=== PATIENT | male | born 1970 | race African-American/Black ===

== ENCOUNTER 2017-05-24 20:22 | Emergency (ER) | payer SELFPAY ==
[2017-05-24] MEDS ORDERED: HYDROCODONE/APAP 7.5/325 MG TAB ONE (21:27)
[2017-05-24] MEDS ORDERED: KETOROLAC 30 MG/ML INJ ONE (21:27)
--- NOTE | 2017-05-24 21:30 | EDPHYS ---
Physician Documentation [facility] Name: Cele Lewis Age: 46 yrs Sex: Male : 1970 Arrival Date: 05/24/2017 Time: 20:26 Bed 25 Private MD: ED Physician Fer Ellison HPI: 05/24 20:32 This 46 yrs old Black Male presents to ER via Ambulatory with complaints of Toothache, rh1 Headache. 20:32 The patient presents with broken tooth/teeth, pain. The problem is located in the upper rh1 right third molar and upper left third molar. Onset: The symptoms/episode began/occurred 2 day(s) ago. Duration: The symptoms are chronic. Modifying factors: The symptoms are alleviated by nothing, the symptoms are aggravated by nothing. Associated signs and symptoms: Pertinent positives: pain, Pertinent negatives: chills, fever, inability to eat, redness in area, swelling, vomiting. Severity of symptoms: At their worst the symptoms were moderate, in the emergency department the symptoms are unchanged. The patient has experienced similar episodes in the past. The patient has not recently seen a physician. Pt. reports pain at bilateral upper molars, increased for the past 2 days. Reports resulting in RENE now. He was last seen here 01/2017 for similar symptoms. Reports he has not followed up with dentist, due to "a lot of paperwork." He has a hx of HTN, took medication just prior to coming to ER.. Historical: - Allergies: 20:29 No Known Allergies; lp1 - Home Meds: 20:29 lisinopril 20 mg Oral tab 1 tab once daily [Active]; lp1 - PMHx: 20:29 Hypertension; lp1 - PSHx: 20:29 None; lp1 - Immunization history:: Adult Immunizations up to date. - Social history:: Smoking status: Patient/guardian denies using tobacco. ROS: 20:32 Constitutional: Negative for fever, chills rh1 20:32 Eyes: Negative for acute changes, blurry vision, vision loss, visual disturbance. 20:32 ENT: Positive for dental pain, Negative for difficulty swallowing, difficulty handling secretions, hoarseness. 20:32 Neck: Negative for pain with movement, pain at rest, swelling. 20:32 Cardiovascular: Negative for chest pain. 20:32 Respiratory: Negative for shortness of breath, wheezing. 20:32 Abdomen/GI: Negative for nausea and vomiting. 20:32 MS/extremity: Negative for decreased range of motion, pain, paresthesias. 20:32 Skin: Negative for diaphoresis, erythema, swelling. 20:32 Neuro: Positive for headache, Negative for altered mental status, dizziness. Exam: 20:32 Constitutional: This is a well developed, well nourished patient who is awake, alert, rh1 and in no acute distress. Head/Face: Normocephalic, atraumatic. 20:32 Neck: Trachea midline, and no cervical lymphadenopathy. Supple, full range of motion without nuchal rigidity. No Meningismus. Chest/axilla: Normal chest wall appearance and motion. Nontender with no deformity. No lesions are appreciated. Cardiovascular: Regular rate and rhythm with a normal S1 and S2. No gallops, murmurs, or rubs. No JVD. No pulse deficits. Respiratory: Lungs have equal breath sounds bilaterally, clear to auscultation. No rales, rhonchi or wheezes noted. No increased work of breathing. Abdomen/GI: Soft, non-tender, with normal bowel sounds. No distension. No guarding or rebound. No evidence of tenderness throughout. Back: No spinal tenderness. No costovertebral tenderness. Full range of motion. Skin: Warm, dry with normal turgor. Normal color with no rashes, no lesions, and no evidence of cellulitis. 20:32 Eyes: Pupils: no acute changes, normal size, normal reaction to light, equal, right pupil is approximately 3 mm(s), left pupil is approximately 3 mm(s), Extraocular movements: intact throughout, Nystagmus: is not appreciated. 20:32 ENT: External ear(s): are unremarkable, no pain with movement, Ear canal(s): are normal, clear, no cerumen impaction, no erythema, no foreign body, no purulent discharge, no swelling, TM's: are normal, no evidence of bulging, no dullness, no erythema, no fluid levels, no hemotympanum, no rupture, normal bony landmarks, Nose: is normal, no drainage, no edema, Mouth: is normal, no lip abnormalities, no mucosal abnormalities, teeth with tobacco staining, mucosa with hypopigmentation, Posterior pharynx: is normal, airway is patent, no erythema, no exudate, no peritonsilar mass, no pooling of secretions, no swelling, normal tonsil apperance, normal sized tonsils, normal uvula appearance, normal uvula size, Dental exam: abscess, is not appreciated, cellulitis, is not appreciated, dental caries, that is moderate, specifically in the upper right third molar (#1) and upper left third molar (#16), tooth erosion, gum swelling, not appreciated, pain, that is moderate, specifically in the upper right third molar (#1) and upper left third molar (#16). 20:32 Neuro: Orientation: is normal, to person, place \\T\\ time. Mentation: is normal, lucid, able to follow commands, Motor: is normal, moves all fours, strength is 5/5 in all extremities, Sensation: is normal, numbness, is not appreciated, tingling, is not appreciated, Gait: is steady, at a normal pace, without difficulty. Vital Signs: 20:30 BP 185 / 115; Pulse 77; Resp 16; Temp 98.4(TE); Pulse Ox 99% on R/A; Weight 106.59 kg; lp1 Height 6 ft. 0 in. (182.88 cm); Pain 9/10; 21:00 BP 185 / 105; Pulse 63; Resp 16; Pulse Ox 99% on R/A; lk1 21:35 BP 184 / 111; Pulse 56; Resp 15; Pulse Ox 100% on R/A; Pain 6/10; lk1 20:30 Body Mass Index 31.87 (106.59 kg, 182.88 cm) lp1 MDM: 20:32 Patient medically screened. [facility] 21:30 Data reviewed: vital signs, nurses notes, and as a result, I will discharge patient. [facility] Data interpreted: Pulse oximetry: on room air is 99 %. Interpretation: normal. Counseling: I had a detailed discussion with the patient and/or guardian regarding: the historical points, exam findings, and any diagnostic results supporting the discharge/admit diagnosis, the need for outpatient follow up, a dentist, a family practitioner, to return to the emergency department if symptoms worsen or persist or if there are any questions or concerns that arise at home. Administered Medications: 21:08 Drug: [place] (7.5 mg-325 mg) 1 tabs Route: PO; lk1 21:35 Follow up: Response: No adverse reaction; Marked relief of symptoms; Pain is decreased lk1 21:09 Drug: Ketorolac 60 mg Route: IM; Site: left gluteus; lk1 21:35 Follow up: Response: No adverse reaction; Marked relief of symptoms; Pain is decreased lk1 Disposition: 05/24/17 21:30 Discharged to Home. Impression: Pulpitis, Hypertensive heart disease. - Condition is Stable. - Discharge Instructions: Dental Pain, Hypertension, Diet and Dental Disease. - Prescriptions for Naprosyn 500 mg Oral Tablet - take 1 tablet by ORAL route 2 times per day take with food; 30 tablet. - Medication Reconciliation Form, Thank You Letter, Antibiotic Education, Prescription Opioid Use form. - Follow up: Private Physician; When: 1 - 2 days; Reason: Recheck today's complaints, Continuance of care, Re-evaluation by your physician. Follow up: Cesar Medina; When: 1 - 2 days; Reason: Further diagnostic work-up, Recheck today's complaints, Continuance of care. Follow up: Emergency Department; When: As needed; Reason: Fever > 102 F, If symptoms return, Trouble breathing, Worsening of condition. - Problem is new. - Symptoms have improved. Addendum: 05/28/2017 07:06 Co-signature as Attending Physician, Fer Ellison MD I agree with the assessment and w a plan of care. Signatures: Vane Sarmiento, RN RN lp1 Kellen Perdomo NP TAXI SERVICER 1 Irina Franco RN RN lk1 Fer Ellison MD MD vt Corrections: (The following items were deleted from the chart) 05/24 20:48 20:32 Pt. reports pain at bilateral upper molars, increased for the past 2 days. rh1 Reports resulting in RENE now. He was last seen here 01/2017 for similar symptoms. Reports he has not followed up with dentist, due to "a lot of paperwork." . rh1
--- NOTE | 2017-05-24 21:30 | ER ---
Nurse's Notes [facility] Name: Cele Lewis Age: 46 yrs Sex: Male : 1970 Arrival Date: 05/24/2017 Time: 20:26 Bed 25 Private MD: Diagnosis: Pulpitis;Hypertensive heart disease Presentation: 05/24 20:27 Presenting complaint: Patient states: Pain to upper right and left of mouth, radiating, lp1 causing headache; States a bad tooth on each side. Transition of care: patient was not received from another setting of care. Onset of symptoms was May 24, 2017. Care prior to arrival: None. 20:27 Method Of Arrival: Ambulatory lp1 20:27 Acuity: RIO 4 lp1 Triage Assessment: 21:48 General: Behavior is calm, cooperative, appropriate for age. lk1 Historical: - Allergies: 20:29 No Known Allergies; lp1 - Home Meds: 20:29 lisinopril 20 mg Oral tab 1 tab once daily [Active]; lp1 - PMHx: 20:29 Hypertension; lp1 - PSHx: 20:29 None; lp1 - Immunization history:: Adult Immunizations up to date. - Social history:: Smoking status: Patient/guardian denies using tobacco. Screenin:29 Abuse screen: Denies threats or abuse. Denies injuries from another. Nutritional lp1 screening: No deficits noted. Tuberculosis screening: No symptoms or risk factors identified. Fall Risk None identified. Assessment: 21:05 General: Appears in no apparent distress. Pain: Complains of pain in mouth Pain lk1 currently is 9 out of 10 on a pain scale. Neuro: Level of Consciousness is awake, alert, obeys commands, Oriented to person, place, time, situation. Cardiovascular: Denies chest pain, lightheadedness, nausea, palpitations, shortness of breath, Capillary refill is brisk Patient's skin is warm and dry. Respiratory: Airway is patent Respiratory effort is even, unlabored, Respiratory pattern is regular, symmetrical. GI: Abdomen is non-distended. EENT: Reports pain in right jaw and left jaw. Musculoskeletal: Swelling absent. Vital Signs: 20:30 BP 185 / 115; Pulse 77; Resp 16; Temp 98.4(TE); Pulse Ox 99% on R/A; Weight 106.59 kg; lp1 Height 6 ft. 0 in. (182.88 cm); Pain 9/10; 21:00 BP 185 / 105; Pulse 63; Resp 16; Pulse Ox 99% on R/A; lk1 21:35 BP 184 / 111; Pulse 56; Resp 15; Pulse Ox 100% on R/A; Pain 6/10; lk1 20:30 Body Mass Index 31.87 (106.59 kg, 182.88 cm) lp1 ED Course: 20:26 Patient arrived in ED. al2 20:29 Triage completed. lp1 20:29 Arm band placed on left wrist. lp1 20:30 Kellen Perdomo NP is PHCP. rh1 20:30 Fer Ellison MD is Attending Physician. rh1 21:06 Irina Franco, JOLIE is Primary Nurse. lk1 21:22 Patient has correct armband on for positive identification. Bed in low position. Call lk1 light in reach. Adult w/ patient. 21:30 Cesar Medina DDS is Referral Physician. rh1 21:47 No provider procedures requiring assistance completed. Patient did not have IV access lk1 during this emergency room visit. Administered Medications: 21:08 Drug: [place] (7.5 mg-325 mg) 1 tabs Route: PO; lk1 21:35 Follow up: Response: No adverse reaction; Marked relief of symptoms; Pain is decreased lk1 21:09 Drug: Ketorolac 60 mg Route: IM; Site: left gluteus; lk1 21:35 Follow up: Response: No adverse reaction; Marked relief of symptoms; Pain is decreased lk1 Outcome: 21:30 Discharge ordered by MD. rh1 21:47 Discharged to home ambulatory, with significant other. lk1 21:47 Condition: good 21:47 Discharge instructions given to patient, significant other, Instructed on discharge instructions, follow up and referral plans. medication usage, safety practices, Demonstrated understanding of instructions, follow-up care, medications, Prescriptions given X 1. 21:48 Patient left the ED. lk1 Signatures: Vane Sarmiento RN RN 1 Kellen Perdomo, BOTTLE DEALER BOTTLE DEALER 1 Irina Franco, JOLIE RN lk1 Adriana Whatley al2
[2017-05-24 21:52] VITALS: TEMP 98.4
[2017-05-24 21:54] VITALS: BP 184/111; O2SAT 100
== END 2017-05-24 21:48 | disposition home or self-care (01) ==
LOC: ER 20:22
DX: K04.01 Reversible pulpitis (principal); I11.9 Hypertensive heart disease without heart failure; I10 Essential (primary) hypertension
CPT/HCPCS: 96372; 99283

== ENCOUNTER 2018-01-30 21:32 | Emergency (ER) | payer SELFPAY ==
--- NOTE | 2018-01-30 21:51 | EDPHYS ---
Physician Documentation [facility] Name: Cele Lewis Age: 47 yrs Sex: Male : 1970 Arrival Date: 01/30/2018 Time: 21:34 Bed 20 Private MD: ED Physician Hira Jaime HPI: 01/30 21:55 This 47 yrs old Black Male presents to ER via Ambulatory with complaints of Toothache. snw 21:55 The patient presents with broken tooth/teeth, pain, redness. The problem is located in snw the upper left third molar (#16) and upper left second molar (#15) and upper right first molar (#3) and upper right second molar (#2) and upper right third molar (#1). Onset: The symptoms/episode began/occurred gradually, and became persistent. Duration: The symptoms are continuous. Associated signs and symptoms: Pertinent positives: inability to eat, pain. Severity of symptoms: At their worst the symptoms were moderate, severe. It is unknown whether or not the patient has had similar symptoms in the past. It is unknown whether or not the patient has recently seen a physician. Historical: - Allergies: 21:43 No Known Allergies; aj - Home Meds: 21:43 lisinopril 20 mg Oral tab 1 tab once daily [Active]; aj - PMHx: 21:43 Hypertension; aj - PSHx: 21:43 None; aj - Immunization history:: Last tetanus immunization: unknown. - Social history:: Smoking status: Patient uses tobacco products, chewing tobacco. - Ebola Screening: : Patient denies exposure to infectious person Patient denies travel to an Ebola-affected area in the 21 days before illness onset No symptoms or risks identified at this time. ROS: 21:53 Constitutional: Negative for fever, chills, and weight loss, Eyes: Negative for injury, snw pain, redness, and discharge, Neck: Negative for injury, pain, and swelling, Cardiovascular: Negative for chest pain, palpitations, and edema, Respiratory: Negative for shortness of breath, cough, wheezing, and pleuritic chest pain, Abdomen/GI: Negative for abdominal pain, nausea, vomiting, diarrhea, and constipation, Back: Negative for injury and pain, : Negative for injury, bleeding, discharge, and swelling, MS/Extremity: Negative for injury and deformity, Skin: Negative for injury, rash, and discoloration, Neuro: Negative for headache, weakness, numbness, tingling, and seizure, Psych: Negative for depression, anxiety, suicide ideation, homicidal ideation, and hallucinations. 21:53 ENT: Positive for dental pain. Exam: 21:53 Constitutional: This is a well developed, well nourished patient who is awake, alert, snw and in no acute distress. Head/Face: Normocephalic, atraumatic. Eyes: Pupils equal round and reactive to light, extra-ocular motions intact. Lids and lashes normal. Conjunctiva and sclera are non-icteric and not injected. Cornea within normal limits. Periorbital areas with no swelling, redness, or edema. Neck: Trachea midline, no thyromegaly or masses palpated, and no cervical lymphadenopathy. Supple, full range of motion without nuchal rigidity, or vertebral point tenderness. No Meningismus. Chest/axilla: Normal chest wall appearance and motion. Nontender with no deformity. No lesions are appreciated. Cardiovascular: Regular rate and rhythm with a normal S1 and S2. No gallops, murmurs, or rubs. Normal PMI, no JVD. No pulse deficits. Respiratory: Lungs have equal breath sounds bilaterally, clear to auscultation and percussion. No rales, rhonchi or wheezes noted. No increased work of breathing, no retractions or nasal flaring. Abdomen/GI: Soft, non-tender, with normal bowel sounds. No distension or tympany. No guarding or rebound. No evidence of tenderness throughout. Back: No spinal tenderness. No costovertebral tenderness. Full range of motion. Skin: Warm, dry with normal turgor. Normal color with no rashes, no lesions, and no evidence of cellulitis. MS/ Extremity: Pulses equal, no cyanosis. Neurovascular intact. Full, normal range of motion. Neuro: Awake and alert, GCS 15, oriented to person, place, time, and situation. Cranial nerves II-XII grossly intact. Motor strength 5/5 in all extremities. Sensory grossly intact. Cerebellar exam normal. Normal gait. Psych: Awake, alert, with orientation to person, place and time. Behavior, mood, and affect are within normal limits. 21:53 ENT: External ear(s): are unremarkable, Ear canal(s): are normal, TM's: are normal, Nose: is normal, Mouth: is normal, Posterior pharynx: is normal, Dental exam: missing teeth, specifically the upper right third molar (#1), upper right second molar (#2), upper right first molar (#3), upper left second molar (#15) and upper left third molar (#16), Voice: is normal, Breath odor: is normal. Vital Signs: 21:43 BP 184 / 110; Pulse 69; Resp 20; Temp 99.0; Pulse Ox 98% on R/A; Weight 104.33 kg; aj Height 6 ft. 0 in. (182.88 cm); 21:43 Body Mass Index 31.19 (104.33 kg, 182.88 cm) aj MDM: 21:50 Patient medically screened. snw 21:55 Data reviewed: vital signs, nurses notes. Data interpreted: Pulse oximetry: on room air snw is 98 %. Interpretation: normal. Counseling: I had a detailed discussion with the patient and/or guardian regarding: the historical points, exam findings, and any diagnostic results supporting the discharge/admit diagnosis, the presence of at least one elevated blood pressure reading (>120/80) during this emergency department visit, the need for outpatient follow up, to return to the emergency department if symptoms worsen or persist or if there are any questions or concerns that arise at home. Special discussion: I have referred the patient to see his PCP for further evaluation of high blood pressure. Based on the history and exam findings, there is no indication for further emergent testing or inpatient evaluation. I discussed with the patient/guardian the need to see a dentist for further evaluation of the symptoms. I discussed with the patient/guardian the need to see the primary care provider for further evaluation of the symptoms. Administered Medications: 22:00 Drug: Lisinopril 20 mg Route: PO; jd3 22:00 Follow up: Response: Medication administered at discharge. jd3 22:00 Drug: Clindamycin 300 mg Route: PO; jd3 22:01 Follow up: Response: Medication administered at discharge. jd3 22:00 Drug: [place] (7.5 mg-325 mg) 1 tabs Route: PO; jd3 22:01 Follow up: Response: Medication administered at discharge. jd3 Disposition: 11/29/18 21:50 Discharged to Home. Impression: Dental caries, unspecified, Essential (primary) hypertension. - Condition is Stable. - Discharge Instructions: Dental Caries, Adult, Dental Pain, Hypertension, Diet and Dental Disease, Rehydration, Adult, Managing Your Hypertension, Preventive Dental Care, Adult. - Prescriptions for chlorhexidine gluconate 0.12 % Mucous Membrane mouthwash - place 15 milliliter by MUCOUS MEMBRANE route 2 times per day after brushing teeth, swish in mouth for 30 seconds then spit out; 480 milliliter. Clindamycin HCl 150 mg Oral Capsule - take 1 capsule by ORAL route every 6 hours for 10 days; 40 capsule. Diclofenac Sodium 75 mg Oral Tablet Sustained Release - take 1 tablet by ORAL route 2 times per day; 30 tablet. - Medication Reconciliation Form, Thank You Letter, Antibiotic Education, Prescription Opioid Use form. - Follow up: Emergency Department; When: As needed; Reason: Worsening of condition. Follow up: Private Physician; When: 2 - 3 days; Reason: Recheck today's complaints, Continuance of care, Re-evaluation by your physician. Addendum: 02/01/2018 07:09 Co-signature as Attending Physician, Hira Jaime MD. g s Signatures: Freya Trevino RN RN Pura Sanchez, ORTHOTIST OR PROSTHETIST-C ORTHOTIST OR PROSTHETIST-Csnw Hira Jaime MD MD gs Davies, Jonathon, RN RN jd3 Corrections: (The following items were deleted from the chart) 01/30 22:05 21:50 01/30/2018 21:50 Discharged to Home. Impression: Dental caries, unspecified; jd3 Essential (primary) hypertension. Condition is Stable. Forms are Medication Reconciliation Form, Thank You Letter, Antibiotic Education, Prescription Opioid Use. Follow up: Emergency Department; When: As needed; Reason: Worsening of condition. Follow up: Private Physician; When: 2 - 3 days; Reason: Recheck today's complaints, Continuance of care, Re-evaluation by your physician. snw
--- NOTE | 2018-01-30 21:51 | ER ---
Nurse's Notes [facility] Name: Cele Lewis Age: 47 yrs Sex: Male : 1970 Arrival Date: 01/30/2018 Time: 21:34 Bed 20 Private MD: Diagnosis: Dental caries, unspecified;Essential (primary) hypertension Presentation: 01/30 21:41 Presenting complaint: Patient states: "I have bad teeth and they hurt all over my aj mouth." Patient noted to have multiple dental carries. Multiple small pieces of chewing tobacco noted in mouth. Patient reports that he did not take his Lisinopril 20 MG today. Transition of care: patient was not received from another setting of care. Onset of symptoms was January 30, 2018. Risk Assessment: Do you want to hurt yourself or someone else? Patient reports no desire to harm self or others. Initial Sepsis Screen: Does the patient meet any 2 criteria? No. Patient's initial sepsis screen is negative. Does the patient have a suspected source of infection? No. Patient's initial sepsis screen is negative. Care prior to arrival: None. 21:41 Method Of Arrival: Ambulatory 21:41 Acuity: RIO 4 Triage Assessment: 21:43 General: Appears in no apparent distress. comfortable, Behavior is calm, cooperative, aj appropriate for age. Pain: Complains of pain in mouth. EENT: Reports pain in mouth. Neuro: Level of Consciousness is awake, alert, obeys commands, Oriented to person, place, time, situation, Appropriate for age. Respiratory: Airway is patent Respiratory effort is even, unlabored, Respiratory pattern is regular, symmetrical. Derm: Skin is intact, is healthy with good turgor, Skin is pink, warm \\T\\ dry. normal. Historical: - Allergies: 21:43 No Known Allergies; aj - Home Meds: 21:43 lisinopril 20 mg Oral tab 1 tab once daily [Active]; aj - PMHx: 21:43 Hypertension; aj - PSHx: 21:43 None; aj - Immunization history:: Last tetanus immunization: unknown. - Social history:: Smoking status: Patient uses tobacco products, chewing tobacco. - Ebola Screening: : Patient denies exposure to infectious person Patient denies travel to an Ebola-affected area in the 21 days before illness onset No symptoms or risks identified at this time. Screenin:04 Abuse screen: Denies threats or abuse. Nutritional screening: No deficits noted. jd3 Tuberculosis screening: No symptoms or risk factors identified. Fall Risk Ambulatory Aid- None/Bed Rest/Nurse Assist (0 pts). Gait- Normal/Bed Rest/Wheelchair (0 pts) Mental Status- Oriented to own ability (0 pts). Total Kaye Fall Scale indicates No Risk (0-24 pts). Assessment: 22:03 General: Appears in no apparent distress. uncomfortable, Behavior is calm, cooperative, jd3 appropriate for age. Pain: Complains of pain in upper left third molar (#16) and upper left second molar (#15) and upper right first molar (#3) and upper right second molar (#2) and upper right third molar (#1) and mouth Quality of pain is described as sharp. Neuro: Level of Consciousness is awake, alert, obeys commands, Oriented to person, place, time, situation. Cardiovascular: Capillary refill < 3 seconds Patient's skin is warm and dry. Respiratory: Airway is patent Respiratory effort is even, unlabored, Respiratory pattern is regular, symmetrical. GI: No signs and/or symptoms were reported involving the gastrointestinal system. : No signs and/or symptoms were reported regarding the genitourinary system. EENT: No signs and/or symptoms were reported regarding the EENT system. Derm: Skin is intact, Skin is dry, Skin is normal, Skin temperature is warm. Musculoskeletal: Circulation, motion, and sensation intact. Range of motion: intact in all extremities. Vital Signs: 21:43 BP 184 / 110; Pulse 69; Resp 20; Temp 99.0; Pulse Ox 98% on R/A; Weight 104.33 kg; aj Height 6 ft. 0 in. (182.88 cm); 21:43 Body Mass Index 31.19 (104.33 kg, 182.88 cm) aj ED Course: 21:34 Patient arrived in ED. am2 21:43 Triage completed. aj 21:43 Arm band placed on right wrist. Patient placed in an exam room. aj 21:47 Pura Chaney FNP-C is PHCP. snw 21:47 Hira Jaime MD is Attending Physician. snw 21:49 Davey Mcmahon RN is Primary Nurse. jd3 22:04 Patient has correct armband on for positive identification. Bed in low position. Call jd3 light in reach. Side rails up X 1. Adult w/ patient. 22:04 No provider procedures requiring assistance completed. Patient did not have IV access jd3 during this emergency room visit. Administered Medications: 22:00 Drug: Lisinopril 20 mg Route: PO; jd3 22:00 Follow up: Response: Medication administered at discharge. jd3 22:00 Drug: Clindamycin 300 mg Route: PO; jd3 22:01 Follow up: Response: Medication administered at discharge. jd3 22:00 Drug: [place] (7.5 mg-325 mg) 1 tabs Route: PO; jd3 22:01 Follow up: Response: Medication administered at discharge. jd3 Outcome: 21:50 Discharge ordered by . faustino 22:05 Discharged to home ambulatory, with family. jd3 22:05 Condition: stable 22:05 Discharge instructions given to patient, family, Instructed on discharge instructions, follow up and referral plans. medication usage, Demonstrated understanding of instructions, follow-up care, medications, Prescriptions given X 3. 22:05 Patient left the ED. jd3 Signatures: Freya Trevino, RN RN Pura Sanchez, [employer]-Csnw Freya Amos Jonathon, RN RN agustin
[2018-01-30] MEDS ORDERED: LISINOPRIL 20 MG TAB ONE (21:59)
[2018-01-30] MEDS ORDERED: CLINDAMYCIN HCL 150 MG CAP ONE (21:59)
[2018-01-30] MEDS ORDERED: HYDROCODONE/APAP 7.5/325 MG TAB ONE (22:02)
[2018-01-30 23:20] VITALS: BP 184/110; TEMP 99; O2SAT 98
== END 2018-01-30 22:05 | disposition home or self-care (01) ==
LOC: ER 21:32
DX: K02.9 Dental caries, unspecified (principal); I10 Essential (primary) hypertension; Z72.0 Tobacco use
CPT/HCPCS: 99283

== ENCOUNTER 2018-04-13 20:59 | Emergency (ER) | payer SELFPAY ==
--- NOTE | 2018-04-13 22:03 | EDPHYS ---
Physician Documentation [facility] Name: Cele Lewis Age: 47 yrs Sex: Male : 1970 Arrival Date: 04/13/2018 Time: 21:02 Bed 28 Private MD: ED Physician Landon Smith HPI: 04/13 22:16 This 47 yrs old Black Male presents to ER via Ambulatory with complaints of Toothache. snw 22:16 The patient presents with pain, swelling. The problem is located in the upper left snw second molar (#15) and upper right second molar (#2). Onset: The symptoms/episode began/occurred suddenly, today. Duration: The symptoms are continuous. Associated signs and symptoms: Pertinent positives: inability to eat, pain, swelling. Severity of symptoms: At their worst the symptoms were moderate. It is unknown whether or not the patient has had similar symptoms in the past. The patient has not recently seen a physician. Historical: - Allergies: 21:07 No Known Allergies; aj1 - Home Meds: 21:07 lisinopril 20 mg Oral tab 1 tab once daily [Active]; aj1 - PMHx: 21:07 Hypertension; aj1 - PSHx: 21:07 None; aj1 - Immunization history:: Flu vaccine is not up to date. - Social history:: Smoking status: Patient/guardian denies using tobacco. - Ebola Screening: : Patient denies travel to an Ebola-affected area in the 21 days before illness onset. ROS: 22:16 Constitutional: Negative for fever, chills, and weight loss, Eyes: Negative for injury, snw pain, redness, and discharge, Neck: Negative for injury, pain, and swelling, Cardiovascular: Negative for chest pain, palpitations, and edema, Respiratory: Negative for shortness of breath, cough, wheezing, and pleuritic chest pain, Abdomen/GI: Negative for abdominal pain, nausea, vomiting, diarrhea, and constipation, Back: Negative for injury and pain, : Negative for injury, bleeding, discharge, and swelling, MS/Extremity: Negative for injury and deformity, Skin: Negative for injury, rash, and discoloration, Neuro: Negative for headache, weakness, numbness, tingling, and seizure. 22:16 ENT: Positive for Teeth pain Exam: 22:15 Constitutional: This is a well developed, well nourished patient who is awake, alert, snw and in no acute distress. Head/Face: Normocephalic, atraumatic. Eyes: Pupils equal round and reactive to light, extra-ocular motions intact. Lids and lashes normal. Conjunctiva and sclera are non-icteric and not injected. Cornea within normal limits. Periorbital areas with no swelling, redness, or edema. Neck: Trachea midline, no thyromegaly or masses palpated, and no cervical lymphadenopathy. Supple, full range of motion without nuchal rigidity, or vertebral point tenderness. No Meningismus. Chest/axilla: Normal chest wall appearance and motion. Nontender with no deformity. No lesions are appreciated. Cardiovascular: Regular rate and rhythm with a normal S1 and S2. No gallops, murmurs, or rubs. Normal PMI, no JVD. No pulse deficits. Respiratory: Lungs have equal breath sounds bilaterally, clear to auscultation and percussion. No rales, rhonchi or wheezes noted. No increased work of breathing, no retractions or nasal flaring. Abdomen/GI: Soft, non-tender, with normal bowel sounds. No distension or tympany. No guarding or rebound. No evidence of tenderness throughout. Back: No spinal tenderness. No costovertebral tenderness. Full range of motion. Skin: Warm, dry with normal turgor. Normal color with no rashes, no lesions, and no evidence of cellulitis. MS/ Extremity: Pulses equal, no cyanosis. Neurovascular intact. Full, normal range of motion. Neuro: Awake and alert, GCS 15, oriented to person, place, time, and situation. Cranial nerves II-XII grossly intact. Motor strength 5/5 in all extremities. Sensory grossly intact. Cerebellar exam normal. Normal gait. 22:15 ENT: TM's: are normal, Mouth: is normal, Dental exam: dental caries, that is moderate, specifically in the upper right second molar (#2) and upper left second molar (#15). Vital Signs: 21:07 BP 177 / 104; Pulse 79; Resp 18; Temp 98.1; Pulse Ox 100% on R/A; Weight 108.86 kg (R); aj1 Height 6 ft. 0 in. (182.88 cm); Pain 9/10; 21:07 Body Mass Index 32.55 (108.86 kg, 182.88 cm) aj1 MDM: 21:10 Patient medically screened. [facility] 22:15 Data reviewed: vital signs, nurses notes. Data interpreted: Pulse oximetry: on room air snw is 100 %. Interpretation: normal. Counseling: I had a detailed discussion with the patient and/or guardian regarding: the historical points, exam findings, and any diagnostic results supporting the discharge/admit diagnosis, the presence of at least one elevated blood pressure reading (>120/80) during this emergency department visit, the need for outpatient follow up, to return to the emergency department if symptoms worsen or persist or if there are any questions or concerns that arise at home. Special discussion: I have referred the patient to see his PCP for further evaluation of high blood pressure. Based on the history and exam findings, there is no indication for further emergent testing or inpatient evaluation. I discussed with the patient/guardian the need to see a dentist for further evaluation of the symptoms. I discussed with the patient/guardian the need to see the primary care provider for further evaluation of the symptoms. Administered Medications: 21:57 Drug: Augmentin 875 mg Route: PO; rv 21:57 Drug: [place] (7.5 mg-325 mg) 1 tabs Route: PO; rv Disposition: 04/14 09:10 Co-signature as Attending Physician, Landon Smith MD I agree with the assessment and [facility] plan of care. Disposition: 04/13/18 22:02 Discharged to Home. Impression: Dental caries, Gingivitis and periodontal diseases. - Condition is Stable. - Discharge Instructions: Dental Pain, Gingivitis, Diet and Dental Disease, Preventive Dental Care, Adult. - Prescriptions for chlorhexidine gluconate 0.12 % Mucous Membrane mouthwash - place 15 milliliter by MUCOUS MEMBRANE route 2 times per day after brushing teeth, swish in mouth for 30 seconds then spit out; 480 milliliter. Clindamycin HCl 300 mg Oral Capsule - take 1 capsule by ORAL route every 6 hours for 10 days; 40 capsule. Diclofenac Sodium 75 mg Oral Tablet Sustained Release - take 1 tablet by ORAL route 2 times per day; 30 tablet. - Medication Reconciliation Form, Thank You Letter, Antibiotic Education, Prescription Opioid Use form. - Follow up: Private Physician; When: 2 - 3 days; Reason: Recheck today's complaints, Continuance of care, Re-evaluation by your physician. Follow up: Emergency Department; When: As needed; Reason: Worsening of condition. Signatures: Jaleesa Santiago, RN RN aj1 Landon Smith MD MD cha Therrien, Shelly, [employer]-Csnw Rashi Gorman RN RN rv Corrections: (The following items were deleted from the chart) 04/13 22:21 22:02 04/13/2018 22:02 Discharged to Home. Impression: Dental caries; Gingivitis and rv periodontal diseases. Condition is Stable. Forms are Medication Reconciliation Form, Thank You Letter, Antibiotic Education, Prescription Opioid Use. Follow up: Private Physician; When: 2 - 3 days; Reason: Recheck today's complaints, Continuance of care, Re-evaluation by your physician. Follow up: Emergency Department; When: As needed; Reason: Worsening of condition. snw
--- NOTE | 2018-04-13 22:03 | ER ---
Nurse's Notes [facility] Name: Cele Lewis Age: 47 yrs Sex: Male : 1970 Arrival Date: 04/13/2018 Time: 21:02 Bed 28 Private MD: Diagnosis: Dental caries;Gingivitis and periodontal diseases Presentation: 04/13 21:05 Presenting complaint: Patient states: Toothache on both sides and pain at the top of aj1 his mouth since 1300 today. Transition of care: patient was not received from another setting of care. Onset of symptoms was April 13, 2018 at 13:00. Risk Assessment: Do you want to hurt yourself or someone else? Patient reports no desire to harm self or others. Initial Sepsis Screen: Does the patient meet any 2 criteria? No. Patient's initial sepsis screen is negative. Does the patient have a suspected source of infection? No. Patient's initial sepsis screen is negative. Care prior to arrival: None. 21:05 Method Of Arrival: Ambulatory aj 21:05 Acuity: RIO 4 aj1 Triage Assessment: 21:07 General: Appears in no apparent distress. uncomfortable, Behavior is calm, cooperative, aj1 appropriate for age. Pain: Complains of pain in mouth Pain currently is 9 out of 10 on a pain scale. EENT: Reports pain in mouth. Neuro: Level of Consciousness is awake, alert, obeys commands. Cardiovascular: Patient's skin is warm and dry. Respiratory: Airway is patent Respiratory effort is even, unlabored, Respiratory pattern is regular, symmetrical. Historical: - Allergies: 21:07 No Known Allergies; aj1 - Home Meds: 21:07 lisinopril 20 mg Oral tab 1 tab once daily [Active]; aj1 - PMHx: 21:07 Hypertension; aj1 - PSHx: 21:07 None; aj1 - Immunization history:: Flu vaccine is not up to date. - Social history:: Smoking status: Patient/guardian denies using tobacco. - Ebola Screening: : Patient denies travel to an Ebola-affected area in the 21 days before illness onset. Screenin:49 Abuse screen: Denies threats or abuse. Denies injuries from another. Nutritional rv screening: No deficits noted. Tuberculosis screening: No symptoms or risk factors identified. Fall Risk None identified. Assessment: 21:41 General: Appears in no apparent distress. uncomfortable, Behavior is calm, cooperative. rv Pain: Complains of pain in mouth. Neuro: Level of Consciousness is awake, alert, obeys commands, Oriented to person, place, time, situation. Cardiovascular: Capillary refill < 3 seconds. Respiratory: Airway is patent. GI: No signs and/or symptoms were reported involving the gastrointestinal system. : No signs and/or symptoms were reported regarding the genitourinary system. EENT: No signs and/or symptoms were reported regarding the EENT system. Derm: Skin is intact. Musculoskeletal: No signs and/or symptoms reported regarding the musculoskeletal system. Vital Signs: 21:07 BP 177 / 104; Pulse 79; Resp 18; Temp 98.1; Pulse Ox 100% on R/A; Weight 108.86 kg (R); aj1 Height 6 ft. 0 in. (182.88 cm); Pain 9/10; 21:07 Body Mass Index 32.55 (108.86 kg, 182.88 cm) aj1 ED Course: 21:02 Patient arrived in ED. es 21:06 Triage completed. aj1 21:07 Arm band placed on Patient placed in an exam room. aj1 21:09 Pura Chaney F[facility]-C is [facility]. snw 21:09 Ladnon Smith MD is Attending Physician. snw 21:51 Patient has correct armband on for positive identification. Bed in low position. Call rv light in reach. Side rails up X 1. Pulse ox on. NIBP on. 22:21 No provider procedures requiring assistance completed. Patient did not have IV access rv during this emergency room visit. Administered Medications: 21:57 Drug: Augmentin 875 mg Route: PO; rv 21:57 Drug: [place] (7.5 mg-325 mg) 1 tabs Route: PO; rv Outcome: 22:02 Discharge ordered by . snw 22:21 Discharged to home ambulatory. rv 22:21 Condition: good 22:21 Discharge instructions given to patient, Instructed on discharge instructions, follow up and referral plans. medication usage, Demonstrated understanding of instructions, follow-up care, medications, Prescriptions given X 3. 22:21 Patient left the ED. rv Signatures: Jaleesa Santiago RN RN aj1 Pura Chaney FNP-C CAR [employer]TER-CsnRaven Denson Ronaldo, RN RN rv
[2018-04-13] MEDS ORDERED: HYDROCODONE/APAP 7.5/325 MG TAB ONE (22:06)
[2018-04-13] MEDS ORDERED: AMOX/K CLAV 875 MG TAB ONE (22:06)
== END 2018-04-13 22:21 | disposition home or self-care (01) ==
LOC: ER 20:59
DX: K02.9 Dental caries, unspecified (principal); K05.10 Chronic gingivitis, plaque induced; K08.89 Other specified disorders of teeth and supporting structures; I10 Essential (primary) hypertension
CPT/HCPCS: 99283

== ENCOUNTER 2018-06-08 01:36 | Emergency (ER) | payer SELFPAY ==
--- NOTE | 2018-06-08 02:05 | ER ---
Nurse's Notes [facility] Name: Cele Lewis Age: 47 yrs Sex: Male : 1970 Arrival Date: 06/08/2018 Time: 01:42 Bed 6 Private MD: Diagnosis: Dental root caries;Periapical abscess with sinus Presentation: 06/08 01:48 Presenting complaint: Patient states: bilateral upper tooth pain since 0100. pt denies ak1 taking any medications prior to arrival for pain. pt stated 2 teeth on the top left and 2 teeth on the top right are painful. Transition of care: patient was not received from another setting of care. Onset of symptoms was June 08, 2018. Risk Assessment: Do you want to hurt yourself or someone else? Patient reports no desire to harm self or others. Initial Sepsis Screen: Does the patient meet any 2 criteria? No. Patient's initial sepsis screen is negative. Does the patient have a suspected source of infection? No. Patient's initial sepsis screen is negative. Care prior to arrival: None. 01:48 Method Of Arrival: Ambulatory ak1 01:48 Acuity: RIO 3 ak1 Triage Assessment: 01:50 General: Appears in no apparent distress. Behavior is calm, cooperative. Pain: ak1 Complains of pain in mouth. EENT: Reports pain in mouth since 0100. Neuro: No deficits noted. Cardiovascular: No deficits noted. Respiratory: No deficits noted. GI: No signs and/or symptoms were reported involving the gastrointestinal system. : No signs and/or symptoms were reported regarding the genitourinary system. Derm: No signs and/or symptoms reported regarding the dermatologic system. Musculoskeletal: No signs and/or symptoms reported regarding the musculoskeletal system. Historical: - Allergies: 01:50 No Known Allergies; ak1 - Home Meds: 01:50 lisinopril 20 mg Oral tab 1 tab once daily [Active]; ak1 - PMHx: 01:50 Hypertension; ak1 - PSHx: 01:50 None; ak1 - Immunization history:: Adult Immunizations unknown. - Social history:: Smoking status: Patient/guardian denies using tobacco. - Ebola Screening: : No symptoms or risks identified at this time. Screenin:52 Abuse screen: Denies threats or abuse. Denies injuries from another. Nutritional ak1 screening: No deficits noted. Tuberculosis screening: No symptoms or risk factors identified. Fall Risk None identified. Assessment: 01:52 Reassessment: Patient appears in no apparent distress at this time. No changes from ak1 previously documented assessment. see triage assessment. 02:53 Reassessment: Patient appears in no apparent distress at this time. No changes from ak1 previously documented assessment. Patient and/or family updated on plan of care and expected duration. Pain level reassessed. Patient is alert, oriented x 3, equal unlabored respirations, skin warm/dry/pink. ERP notified of vitals and agreed to discharge. Vital Signs: 01:50 BP 198 / 123; Pulse 78; Resp 18; Temp 98.8(O); Pulse Ox 96% on R/A; Weight 104.33 kg ak1 (R); Height 6 ft. 0 in. (182.88 cm) (R); Pain 9/10; 02:06 BP 198 / 110; Pulse 69; Resp 18; Pulse Ox 96% on R/A; ak1 02:37 BP 186 / 101; Pulse 54; Resp 16; Temp 98.8; Pulse Ox 96% on R/A; ak1 01:50 Body Mass Index 31.19 (104.33 kg, 182.88 cm) ak1 ED Course: 01:42 Patient arrived in ED. es 01:43 Hira Jaime MD is Attending Physician. gs 01:49 Triage completed. ak1 01:50 Arm band placed on Patient placed in an exam room, on a stretcher, Patient notified of ak1 wait time. 01:52 Patient has correct armband on for positive identification. Bed in low position. Call ak1 light in reach. Side rails up X 1. Adult w/ patient. Pulse ox on. NIBP on. 02:00 Genna Burgos, RN is Primary Nurse. ak1 02:00 No provider procedures requiring assistance completed. ak1 02:06 Patient did not have IV access during this emergency room visit. ak1 Administered Medications: 02:00 Drug: cloNIDine 0.2 mg Route: PO; ak1 02:53 Follow up: Response: No adverse reaction ak1 02:00 Drug: Amoxicillin 875 mg Route: PO; ak1 02:53 Follow up: Response: No adverse reaction ak1 02:00 Drug: Dwight 10 mg-325 mg 1 tabs Route: PO; ak1 02:53 Follow up: Response: No adverse reaction ak1 Outcome: 02:04 Discharge ordered by . 02:51 Discharged to home ambulatory, with family. ak1 02:51 Condition: good 02:51 Discharge instructions given to patient, family, Instructed on discharge instructions, follow up and referral plans. no drinking with medication, no driving heavy equipment, Demonstrated understanding of instructions, follow-up care, medications, Prescriptions given X 2. 02:54 Patient left the ED. ak1 Signatures: Raven Stephens Amber RN RN ak1 Hira Jaime MD MD
--- NOTE | 2018-06-08 02:05 | EDPHYS ---
Physician Documentation [facility] Name: Cele Lewis Age: 47 yrs Sex: Male : 1970 Arrival Date: 06/08/2018 Time: 01:42 Bed 6 Private MD: ED Physician Hira Jaime HPI: 06/08 01:54 This 47 yrs old Black Male presents to ER via Ambulatory with complaints of Toothache. gs 01:54 The patient presents with bleeding, broken tooth/teeth, pain. The problem is located in gs the upper right second molar and upper left second molar. Onset: The symptoms/episode began/occurred 2 week(s) ago. Duration: The symptoms are continuous. Modifying factors: the symptoms are aggravated by chewing. Associated signs and symptoms: Pertinent negatives: fever, swelling. Severity of symptoms: At their worst the symptoms were moderate, in the emergency department the symptoms are unchanged. The patient has experienced similar episodes in the past, chronically. Historical: - Allergies: 01:50 No Known Allergies; ak1 - Home Meds: 01:50 lisinopril 20 mg Oral tab 1 tab once daily [Active]; ak1 - PMHx: 01:50 Hypertension; ak1 - PSHx: 01:50 None; ak1 - Immunization history:: Adult Immunizations unknown. - Social history:: Smoking status: Patient/guardian denies using tobacco. - Ebola Screening: : No symptoms or risks identified at this time. ROS: 01:54 All other systems are negative. gs Exam: 01:54 Head/Face: Normocephalic, atraumatic. Eyes: Pupils equal round and reactive to light, gs extra-ocular motions intact. Lids and lashes normal. Conjunctiva and sclera are non-icteric and not injected. Cornea within normal limits. Periorbital areas with no swelling, redness, or edema. Neck: Trachea midline, no thyromegaly or masses palpated, and no cervical lymphadenopathy. Supple, full range of motion without nuchal rigidity, or vertebral point tenderness. No Meningismus. Chest/axilla: Normal chest wall appearance and motion. Nontender with no deformity. No lesions are appreciated. Cardiovascular: Regular rate and rhythm with a normal S1 and S2. No gallops, murmurs, or rubs. Normal PMI, no JVD. No pulse deficits. Respiratory: Lungs have equal breath sounds bilaterally, clear to auscultation and percussion. No rales, rhonchi or wheezes noted. No increased work of breathing, no retractions or nasal flaring. Abdomen/GI: Soft, non-tender, with normal bowel sounds. No distension or tympany. No guarding or rebound. No evidence of tenderness throughout. Back: No spinal tenderness. No costovertebral tenderness. Full range of motion. Skin: Warm, dry with normal turgor. Normal color with no rashes, no lesions, and no evidence of cellulitis. MS/ Extremity: Pulses equal, no cyanosis. Neurovascular intact. Full, normal range of motion. Neuro: Awake and alert, GCS 15, oriented to person, place, time, and situation. Cranial nerves II-XII grossly intact. Motor strength 5/5 in all extremities. Sensory grossly intact. Cerebellar exam normal. Normal gait. 01:54 Constitutional: The patient appears alert, awake, uncomfortable. 01:54 ENT: Dental exam: dental caries, fractured teeth are noted, pain, specifically in the upper right second molar (#2) and upper left second molar (#15). Vital Signs: 01:50 BP 198 / 123; Pulse 78; Resp 18; Temp 98.8(O); Pulse Ox 96% on R/A; Weight 104.33 kg ak1 (R); Height 6 ft. 0 in. (182.88 cm) (R); Pain 9/10; 02:06 BP 198 / 110; Pulse 69; Resp 18; Pulse Ox 96% on R/A; ak1 02:37 BP 186 / 101; Pulse 54; Resp 16; Temp 98.8; Pulse Ox 96% on R/A; ak1 01:50 Body Mass Index 31.19 (104.33 kg, 182.88 cm) ak1 MDM: 01:53 Patient medically screened. 01:54 Differential diagnosis: dental caries, gingivitis. Data reviewed: vital signs, nurses gs notes. Counseling: I had a detailed discussion with the patient and/or guardian regarding: the presence of at least one elevated blood pressure reading (>120/80) during this emergency department visit. Administered Medications: 02:00 Drug: cloNIDine 0.2 mg Route: PO; [facility] 02:53 Follow up: Response: No adverse reaction ak1 02:00 Drug: Amoxicillin 875 mg Route: PO; ak1 02:53 Follow up: Response: No adverse reaction ak1 02:00 Drug: [place] 10 mg-325 mg 1 tabs Route: PO; ak1 02:53 Follow up: Response: No adverse reaction ak1 Disposition: 06/08/18 02:04 Discharged to Home. Impression: Dental root caries, Periapical abscess with sinus. - Condition is Stable. - Discharge Instructions: Dental Abscess. - Prescriptions for Amoxicillin 875 mg Oral Tablet - take 1 tablet by ORAL route every 12 hours for 7 days; 14 tablet. Tylenol- Codeine #4 300-60 mg Oral Tablet - take 1 tablet by ORAL route every 6 hours As needed; 12 tablet. - Medication Reconciliation Form, Thank You Letter, Antibiotic Education, Prescription Opioid Use form. - Follow up: Private Physician; When: 1 - 2 days; Reason: Re-evaluation by your physician. Signatures: Genna Burgos RN RN ak1 Hira Jaime MD MD Corrections: (The following items were deleted from the chart) 02:54 02:04 06/08/2018 02:04 Discharged to Home. Impression: Dental root caries; Periapical ak1 abscess with sinus. Condition is Stable. Forms are Medication Reconciliation Form, Thank You Letter, Antibiotic Education, Prescription Opioid Use. Follow up: Private Physician; When: 1 - 2 days; Reason: Re-evaluation by your physician. gs
[2018-06-08] MEDS ORDERED: cloNIDine HCl 0.1 MG TAB ONE (02:09)
[2018-06-08] MEDS ORDERED: AMOX/K CLAV 875 MG TAB ONE (02:10)
[2018-06-08] MEDS ORDERED: HYDROCODONE/APAP 10/325 TAB ONE (02:10)
[2018-06-08 03:07] VITALS: TEMP 98.8; O2SAT 96
[2018-06-08 03:11] VITALS: BP 186/101
== END 2018-06-08 02:54 | disposition home or self-care (01) ==
LOC: ER 01:36
DX: K02.7 Dental root caries (principal); K04.6 Periapical abscess with sinus; I10 Essential (primary) hypertension
CPT/HCPCS: 99283

== ENCOUNTER 2018-07-06 22:52 | Emergency (ER) | payer SELFPAY ==
--- NOTE | 2018-07-06 23:45 | ER ---
Nurse's Notes [facility] Name: Cele Lewis Age: 47 yrs Sex: Male : 1970 Arrival Date: 07/06/2018 Time: 22:56 Bed 25 Private MD: Diagnosis: Periapical abscess without sinus Presentation: 07/06 23:35 Presenting complaint: Patient states: he has been having toothpain on both sided of bb upper jaws x 2 days and pain is getting worse. Transition of care: patient was not received from another setting of care. Onset of symptoms was July 04, 2018. Risk Assessment: Do you want to hurt yourself or someone else? Patient reports no desire to harm self or others. Initial Sepsis Screen: Does the patient meet any 2 criteria? No. Patient's initial sepsis screen is negative. Does the patient have a suspected source of infection? No. Patient's initial sepsis screen is negative. Care prior to arrival: None. 23:35 Method Of Arrival: Ambulatory bb 23:35 Acuity: RIO 4 bb Historical: - Allergies: 23:37 No Known Allergies; bb - Home Meds: 23:37 lisinopril 20 mg Oral tab 1 tab once daily [Active]; bb - PMHx: 23:37 Hypertension; bb - PSHx: 23:37 None; bb - Immunization history:: Adult Immunizations up to date. - Social history:: Smoking status: Patient/guardian denies using tobacco. - Ebola Screening: : No symptoms or risks identified at this time. Screenin:43 Abuse screen: Denies threats or abuse. Denies injuries from another. Nutritional la1 screening: No deficits noted. Tuberculosis screening: No symptoms or risk factors identified. Fall Risk None identified. Assessment: 23:42 General: Appears in no apparent distress. Behavior is calm, cooperative. Pain: la1 Complains of pain in mouth. Neuro: Level of Consciousness is awake, alert, obeys commands, Oriented to person, place, time, situation. Cardiovascular: Capillary refill < 3 seconds Patient's skin is warm and dry. Respiratory: Airway is patent Respiratory effort is even, unlabored, Respiratory pattern is regular, symmetrical. GI: No signs and/or symptoms were reported involving the gastrointestinal system. : No signs and/or symptoms were reported regarding the genitourinary system. EENT: Poor dentition noted. Vital Signs: 23:37 BP 186 / 116; Pulse 76; Resp 16 S; Temp 98.3(O); Pulse Ox 99% on R/A; Weight 108.86 kg bb (R); Height 6 ft. 0 in. (182.88 cm) (R); Pain 9/10; 23:37 Body Mass Index 32.55 (108.86 kg, 182.88 cm) ED Course: 22:56 Patient arrived in ED. es 23:36 Triage completed. bb 23:37 Arm band placed on. Family accompanied patient. bb 23:39 Kaleb Walker NP is PHCP. pm1 23:39 Rai Roman MD is Attending Physician. pm1 23:42 Melvin Mcallister, JOLIE is Primary Nurse. la1 23:43 Call light in reach. Side rails up X 1. la1 23:43 No provider procedures requiring assistance completed. Patient did not have IV access la1 during this emergency room visit. Administered Medications: 23:50 Drug: [place] 10 mg-325 mg 1 tabs Route: PO; la1 23:50 Follow up: Response: Medication administered at discharge. la1 23:50 Drug: Augmentin Chewable Tablet 800 mg Route: PO; la1 23:50 Follow up: Response: Medication administered at discharge. la1 Outcome: 23:45 Discharge ordered by . pm1 23:50 Discharged to home ambulatory. la1 23:50 Condition: stable 23:50 Discharge instructions given to patient, Instructed on discharge instructions, follow up and referral plans. medication usage, Demonstrated understanding of instructions, follow-up care, medications, Prescriptions given X 2. 23:50 Patient left the ED. la1 Signatures: Raven Stephens Brenda, RN RN bb Melvin Mcallister RN RN la1 Kaleb Walker NP ANESTHESIOLOGY FELLOW pm1
--- NOTE | 2018-07-06 23:45 | EDPHYS ---
Physician Documentation [facility] Name: Cele Lewis Age: 47 yrs Sex: Male : 1970 Arrival Date: 07/06/2018 Time: 22:56 Bed 25 Private MD: ED Physician Rai Roman HPI: 07/06 23:50 This 47 yrs old Black Male presents to ER via Ambulatory with complaints of Toothache. pm1 23:50 The patient presents with pain, swelling. pm1 23:50 The problem is located in the upper right second molar and upper left second molar. pm1 Onset: The symptoms/episode began/occurred yesterday. Duration: The symptoms are continuous. Modifying factors: The symptoms are alleviated by nothing, the symptoms are aggravated by chewing. Associated signs and symptoms: Pertinent negatives: fever, inability to eat, inability to open mouth. Severity of symptoms: in the emergency department the symptoms are actually worse. The patient has experienced similar episodes in the past, multiple times, and the symptoms today are exactly the same. The patient has not recently seen a physician, has not seen dentist yet. Historical: - Allergies: 23:37 No Known Allergies; bb - Home Meds: 23:37 lisinopril 20 mg Oral tab 1 tab once daily [Active]; bb - PMHx: 23:37 Hypertension; bb - PSHx: 23:37 None; bb - Immunization history:: Adult Immunizations up to date. - Social history:: Smoking status: Patient/guardian denies using tobacco. - Ebola Screening: : No symptoms or risks identified at this time. ROS: 23:50 Constitutional: Negative for fever, chills, and weight loss, Eyes: Negative for injury, pm1 pain, redness, and discharge. 23:50 Neck: Negative for injury, pain, and swelling, Cardiovascular: Negative for chest pain, palpitations, and edema, Respiratory: Negative for shortness of breath, cough, wheezing, and pleuritic chest pain, Abdomen/GI: Negative for abdominal pain, nausea, vomiting, diarrhea, and constipation, Back: Negative for injury and pain, : Negative for injury, bleeding, discharge, and swelling, MS/Extremity: Negative for injury and deformity, Skin: Negative for injury, rash, and discoloration, Neuro: Negative for headache, weakness, numbness, tingling, and seizure. 23:50 ENT: Positive for dental pain, Negative for drainage from ear(s), ear pain. Exam: 23:50 Constitutional: This is a well developed, well nourished patient who is awake, alert, pm1 and in no acute distress. Head/Face: Normocephalic, atraumatic. Eyes: Pupils equal round and reactive to light, extra-ocular motions intact. Lids and lashes normal. Conjunctiva and sclera are non-icteric and not injected. Cornea within normal limits. Periorbital areas with no swelling, redness, or edema. 23:50 Neck: Trachea midline, no thyromegaly or masses palpated, and no cervical lymphadenopathy. Supple, full range of motion without nuchal rigidity, or vertebral point tenderness. No Meningismus. Chest/axilla: Normal chest wall appearance and motion. Nontender with no deformity. No lesions are appreciated. Cardiovascular: Regular rate and rhythm with a normal S1 and S2. No gallops, murmurs, or rubs. Normal PMI, no JVD. No pulse deficits. Respiratory: Lungs have equal breath sounds bilaterally, clear to auscultation and percussion. No rales, rhonchi or wheezes noted. No increased work of breathing, no retractions or nasal flaring. Abdomen/GI: Soft, non-tender, with normal bowel sounds. No distension or tympany. No guarding or rebound. No evidence of tenderness throughout. Back: No spinal tenderness. No costovertebral tenderness. Full range of motion. Skin: Warm, dry with normal turgor. Normal color with no rashes, no lesions, and no evidence of cellulitis. MS/ Extremity: Pulses equal, no cyanosis. Neurovascular intact. Full, normal range of motion. 23:50 ENT: External ear(s): are unremarkable, Ear canal(s): are normal, TM's: are normal, Nose: is normal, Mouth: is normal, Dental exam: dental caries, diffusely, pain, that is moderate, specifically in the upper right second molar (#2) and upper left second molar (#15), eroded to the gum line. Mild swelling present to gums. 23:50 Neuro: Orientation: is normal, Motor: is normal, moves all fours. Vital Signs: 23:37 BP 186 / 116; Pulse 76; Resp 16 S; Temp 98.3(O); Pulse Ox 99% on R/A; Weight 108.86 kg bb (R); Height 6 ft. 0 in. (182.88 cm) (R); Pain 9/10; 23:37 Body Mass Index 32.55 (108.86 kg, 182.88 cm) bb MDM: 23:40 Patient medically screened. pm1 23:44 Data reviewed: vital signs. Data interpreted: Pulse oximetry: on room air is 99 %. pm1 Interpretation: normal. Counseling: I had a detailed discussion with the patient and/or guardian regarding: the historical points, exam findings, and any diagnostic results supporting the discharge/admit diagnosis, the need for outpatient follow up, for definitive care, a dentist, to return to the emergency department if symptoms worsen or persist or if there are any questions or concerns that arise at home. Administered Medications: 23:50 Drug: [place] 10 mg-325 mg 1 tabs Route: PO; la1 23:50 Follow up: Response: Medication administered at discharge. la1 23:50 Drug: Augmentin Chewable Tablet 800 mg Route: PO; la1 23:50 Follow up: Response: Medication administered at discharge. la1 Disposition: 07/07 02:15 Co-signature as Attending Physician, Rai Roman MD. rn Disposition: 07/06/18 23:45 Discharged to Home. Impression: Periapical abscess without sinus. - Condition is Stable. - Discharge Instructions: Dental Abscess, Dental Pain. - Prescriptions for Augmentin 875- 125 mg Oral Tablet - take 1 tablet by ORAL route every 12 hours for 10 days; 20 tablet. Tylenol- Codeine #3 300-30 mg Oral Tablet - take 2 tablets by ORAL route every 6 hours As needed; 20 tablet. - Medication Reconciliation Form, Thank You Letter, Antibiotic Education, Prescription Opioid Use form. - Follow up: Emergency Department; When: As needed; Reason: Worsening of condition. Follow up: Private Physician; When: 2 - 3 days; Reason: Recheck today's complaints, Continuance of care, Re-evaluation by your physician. - Problem is new. - Symptoms have improved. Signatures: Kimberly Echevarria RN RN bb Nieto, Roman, MD MD rn Attema, Lee, RN RN la1 Kaleb Walker NP SCRAPER LOADER OPERATOR pm1 Corrections: (The following items were deleted from the chart) 07/06 23:50 23:45 07/06/2018 23:45 Discharged to Home. Impression: Periapical abscess without la1 sinus. Condition is Stable. Forms are Medication Reconciliation Form, Thank You Letter, Antibiotic Education, Prescription Opioid Use. Follow up: Emergency Department; When: As needed; Reason: Worsening of condition. Follow up: Private Physician; When: 2 - 3 days; Reason: Recheck today's complaints, Continuance of care, Re-evaluation by your physician. Problem is new. Symptoms have improved. pm1
[2018-07-07] MEDS ORDERED: AMOX/K CLAV 875 MG TAB ONE (00:02)
[2018-07-07] MEDS ORDERED: HYDROCODONE/APAP 10/325 TAB ONE (00:02)
[2018-07-07 00:58] VITALS: BP 186/116; TEMP 98.3; O2SAT 99
== END 2018-07-06 23:50 | disposition home or self-care (01) ==
LOC: ER 22:52
DX: K04.7 Periapical abscess without sinus (principal); I10 Essential (primary) hypertension
CPT/HCPCS: 99283

== ENCOUNTER 2019-01-03 21:23 | Emergency (ER) | payer SELFPAY ==
[2019-01-03] MEDS ORDERED: CODEINE 30MG/APAP 300MG TAB ONE (23:03)
[2019-01-03] MEDS ORDERED: IBUPROFEN 400 MG TAB ONE (23:03)
[2019-01-03] MEDS ORDERED: AMOX/K CLAV 875 MG TAB ONE (23:03)
[2019-01-03] MEDS ORDERED: NA CHLORIDE 0.9% 1,000 ML ONE (23:58)
[2019-01-04] MEDS ORDERED: DIPHENHYDRAMINE 50 MG/ML VIAL ONE (00:10)
[2019-01-04] MEDS ORDERED: METOCLOPRAMIDE 10 MG/2mL INJ ONE (00:10)
[2019-01-04] MEDS ORDERED: dexAMETHasone 10 MG/ML VIAL ONE (00:10)
[2019-01-04] MEDS ORDERED: POTASSIUM 25 MEQ EFFERV TAB ONE (01:06)
--- NOTE | 2019-01-04 01:08 | ER ---
Nurse's Notes [facility] Name: Cele Lewis Age: 48 yrs Sex: Male : 1970 Arrival Date: 01/03/2019 Time: 21:23 Bed 13 Private MD: Diagnosis: Otitis media, unspecified, bilateral;Hypertensive heart disease Presentation: 01/03 21:43 Presenting complaint: Patient states: bilateral ear pain since night. ak1 Transition of care: patient was not received from another setting of care. Onset of symptoms is unknown. Risk Assessment: Do you want to hurt yourself or someone else? Patient reports no desire to harm self or others. Initial Sepsis Screen: Does the patient meet any 2 criteria? No. Patient's initial sepsis screen is negative. Does the patient have a suspected source of infection? No. Patient's initial sepsis screen is negative. Care prior to arrival: None. 21:43 Method Of Arrival: Ambulatory ak1 21:43 Acuity: RIO 4 ak1 Triage Assessment: 21:44 General: Appears in no apparent distress. uncomfortable. ak1 Historical: - Allergies: 21:44 No Known Allergies; ak1 - Home Meds: 21:44 lisinopril 20 mg Oral tab 1 tab once daily [Active]; ak1 - PMHx: 21:44 Hypertension; ak1 - PSHx: 21:44 None; ak1 - Immunization history:: Adult Immunizations unknown, Flu vaccine is not up to date. - Social history:: Smoking status: Patient/guardian denies using tobacco. - Ebola Screening: : No symptoms or risks identified at this time. Screenin:30 Abuse screen: Denies threats or abuse. Denies injuries from another. Nutritional wh screening: No deficits noted. Tuberculosis screening: No symptoms or risk factors identified. Fall Risk None identified. Assessment: 22:30 General: Appears in no apparent distress. Behavior is calm, cooperative, appropriate wh for age. Pain: Complains of pain in right ear and left ear Pain does not radiate. Pain currently is 10 out of 10 on a pain scale. Quality of pain is described as aching, Pain began 2-3 days ago. Neuro: Level of Consciousness is awake, alert, obeys commands, Oriented to person, place, time, situation, Appropriate for age. Cardiovascular: Heart tones S1 S2. Respiratory: Airway is patent Respiratory effort is even, unlabored, Respiratory pattern is regular, symmetrical, Breath sounds are clear bilaterally. GI: Abdomen is flat, non-distended. : No signs and/or symptoms were reported regarding the genitourinary system. EENT: Reports Ear Pain. Derm: Skin is intact, is healthy with good turgor, Skin is pink, warm \T\ dry. normal. Musculoskeletal: Circulation, motion, and sensation intact. 23:30 Reassessment: Patient appears in no apparent distress at this time. No changes from previously documented assessment. Patient and/or family updated on plan of care and expected duration. Pain level reassessed. Patient is alert, oriented x 3, equal unlabored respirations, skin warm/dry/pink. 01/04 00:30 Reassessment: Patient appears in no apparent distress at this time. No changes from previously documented assessment. Patient and/or family updated on plan of care and expected duration. Pain level reassessed. Patient is alert, oriented x 3, equal unlabored respirations, skin warm/dry/pink. 00:45 Reassessment: Patient appears in no apparent distress at this time. No changes from previously documented assessment. Patient and/or family updated on plan of care and expected duration. Pain level reassessed. Patient is alert, oriented x 3, equal unlabored respirations, skin warm/dry/pink. Per Lab Poonam blood was hemolyzed and asking for a redraw, she stated she called earlier but Primary Nurse was not informed of the request. 01:30 Reassessment: Patient appears in no apparent distress at this time. No changes from previously documented assessment. Patient and/or family updated on plan of care and expected duration. Pain level reassessed. Patient denies pain at this time. Patient states feeling better. Patient states symptoms have improved. Vital Signs: 01/03 21:43 BP 184 / 117; Pulse 87; Resp 18; Temp 98.2; Pulse Ox 100% on R/A; Weight 104.33 kg (R); ak1 Height 6 ft. 0 in. (182.88 cm) (R); Pain 10/10; 23:20 BP 183 / 104; Pulse 70; Resp 18; Pulse Ox 100% on R/A; wh 01/04 00:30 BP 172 / 97; Pulse 65; Resp 18; Pulse Ox 100% ; wh 01:35 BP 165 / 97; Pulse 56; Resp 18; Pulse Ox 10% on R/A; 01/03 21:43 Body Mass Index 31.19 (104.33 kg, 182.88 cm) ak1 ED Course: 01/03 21:23 Patient arrived in ED. ds1 21:44 Triage completed. ak1 21:44 Arm band placed on Patient placed in waiting room, Patient notified of wait time. ak1 22:28 Ashleigh Jennings is Primary Nurse. 22:29 Landon Rahman PA is PHCP. cp 22:29 Landon mSith MD is Attending Physician. cp 22:30 Patient has correct armband on for positive identification. Bed in low position. Call light in reach. Side rails up X 1. Pulse ox on. NIBP on. 23:45 Inserted saline lock: 20 gauge in right antecubital area, using aseptic technique. Blood collected. 11 00:34 CT Head Brain wo Cont In Process Unspecified. EDMS 01:38 No provider procedures requiring assistance completed. IV discontinued, intact, bleeding controlled, No redness/swelling at site. Administered Medications: 01/03 23:00 Drug: Ibuprofen 800 mg Route: PO; 01/04 00:24 Follow up: Response: No adverse reaction; Pain is unchanged, physician notified 01/03 23:02 Drug: Tylenol #3 (300 mg-30 mg) 2 tabs Route: PO; 01/04 00:25 Follow up: Response: No adverse reaction; Pain is unchanged, physician notified 01/03 23:04 Drug: Augmentin 875 mg Route: PO; 01/04 00:25 Follow up: Response: No adverse reaction 00:18 Drug: Benadryl 25 mg Route: IVP; Site: left forearm; 01:41 Follow up: Response: No adverse reaction 00:20 Drug: Reglan 10 mg Route: IVP; Site: left forearm; 01:40 Follow up: Response: No adverse reaction 00:22 Drug: Decadron - Dexamethasone 10 mg Route: IVP; Site: left forearm; 01:40 Follow up: Response: No adverse reaction 00:24 Drug: NS 0.9% 1000 ml Route: IV; Rate: 1 bolus; Site: left forearm; 01:40 Follow up: Response: No adverse reaction; IV Status: Completed infusion 01:07 Drug: Potassium Effervescent Tablet 25 mEq Route: PO; 01:41 Follow up: Response: No adverse reaction 01:17 CANCELLED (Physician Discretion): cloNIDine 0.1 mg PO once 01:33 Drug: Hydrochlorothiazide 25 mg Route: PO; 01:41 Follow up: Response: No adverse reaction 01:42 Follow up: Response: Blood pressure is lowered Outcome: 01:08 Discharge ordered by MD. 01:34 Patient left the ED. 01:39 Discharged to home ambulatory, with family. 01:39 Condition: stable 01:39 Discharge instructions given to patient, family, Instructed on discharge instructions, follow up and referral plans. medication usage, POC otitis Media and HTN Demonstrated understanding of instructions, follow-up care, medications, POC Prescriptions given X 2. Signatures: Dispatcher Ensygnia EDKS LealSandee winter ds1 Genna Burgos RN RN ak1 Landon Rahman PA PA Ashleigh Boyd Corrections: (The following items were deleted from the chart) 01:31 01:34 Reassessment: Patient appears in no apparent distress at this time. No changes wh from previously documented assessment. Patient and/or family updated on plan of care and expected duration. Pain level reassessed. Patient is alert, oriented x 3, equal unlabored respirations, skin warm/dry/pink. Per Lab Poonam blood was hemolyzed and asking for a redraw, she stated she called earlier but Primary Nurse was not informed of the request 01:40 01/03 23:00 Inserted saline lock: 20 gauge in right antecubital area, using aseptic wh technique. Blood collected.
--- NOTE | 2019-01-04 01:09 | EDPHYS ---
Physician Documentation [facility] Name: Cele Lewis Age: 48 yrs Sex: Male : 1970 Arrival Date: 01/03/2019 Time: 21:23 Bed 13 Private MD: ED Physician Landon Smith HPI: 01/03 23:00 This 48 yrs old Black Male presents to ER via Ambulatory with complaints of Ear Pain. cp 23:00 The patient presents with pain, that is acute, tenderness. The complaints affect the cp right ear and left ear. Onset: The symptoms/episode began/occurred 2 day(s) ago. Associated signs and symptoms: Pertinent positives: headache, Pertinent negatives: cough, fever, lightheadedness, sinus trouble, shortness of breath, sore throat, vomiting, chest pain. Severity of symptoms: in the emergency department the symptoms are unchanged despite home interventions, has been taking antibiotic prescribed to mother. Historical: - Allergies: 21:44 No Known Allergies; ak1 - Home Meds: 21:44 lisinopril 20 mg Oral tab 1 tab once daily [Active]; ak1 - PMHx: 21:44 Hypertension; ak1 - PSHx: 21:44 None; ak1 - Immunization history:: Adult Immunizations unknown, Flu vaccine is not up to date. - Social history:: Smoking status: Patient/guardian denies using tobacco. - Ebola Screening: : No symptoms or risks identified at this time. ROS: 23:05 Constitutional: Negative for body aches, chills, fever, poor PO intake. cp 23:05 Eyes: Negative for injury, pain, redness, and discharge. cp 23:05 ENT: Positive for ear pain, Negative for drainage from ear(s), sinus congestion, sinus pain, sore throat, difficulty swallowing, difficulty handling secretions. 23:05 Cardiovascular: Negative for chest pain, palpitations. 23:05 Respiratory: Negative for cough, shortness of breath, wheezing. 23:05 Abdomen/GI: Negative for abdominal pain, nausea, vomiting, and diarrhea, constipation. 23:05 Back: Negative for pain at rest, pain with movement. 23:05 : Negative for urinary symptoms. 23:05 Skin: Negative for cellulitis, rash. 23:05 Neuro: Positive for headache, Negative for altered mental status, dizziness, syncope, weakness. 23:05 All other systems are negative. Exam: 23:15 Constitutional: The patient appears in no acute distress, alert, awake, cp non-diaphoretic, non-toxic, well developed, well nourished. 23:15 Head/Face: Normocephalic, atraumatic. cp 23:15 Eyes: Pupils equal round and reactive to light, extra-ocular motions intact. Lids and lashes normal. Conjunctiva and sclera are non-icteric and not injected. Cornea within normal limits. Periorbital areas with no swelling, redness, or edema. 23:15 ENT: External ear(s): are unremarkable, Ear canal(s): are normal, clear, TM's: bulging, is not appreciated, bilaterally, erythema, that is mild, bilaterally, Nose: is normal, Mouth: Lips: moist, Oral mucosa: pink and intact, moist, Posterior pharynx: is normal, airway is patent, no erythema, no exudate. 23:15 Neck: ROM/movement: is normal, is supple, without pain, no range of motions limitations, no nuchal rigidity, Lymph nodes: no appreciated lymphadenopathy. 23:15 Chest/axilla: Inspection: normal, Palpation: is normal, no crepitus, no tenderness. 23:15 Cardiovascular: Rate: normal, Rhythm: regular, Edema: is not appreciated, JVD: is not appreciated. 23:15 Respiratory: the patient does not display signs of respiratory distress, Respirations: normal, no use of accessory muscles, no retractions, no splinting, no tachypnea, labored breathing, is not present, Breath sounds: are clear throughout, no decreased breath sounds, no stridor, no wheezing. 23:15 Abdomen/GI: Inspection: abdomen appears normal, Bowel sounds: active, all quadrants, Palpation: abdomen is soft and non-tender, in all quadrants. 23:15 Back: pain, is absent, ROM is normal. 23:15 Skin: no rash present. 23:15 Neuro: Orientation: to person, place \T\ time. Mentation: is normal, Cerebellar function: is grossly normal, Motor: moves all fours, strength is normal, Sensation: is normal. Vital Signs: 21:43 BP 184 / 117; Pulse 87; Resp 18; Temp 98.2; Pulse Ox 100% on R/A; Weight 104.33 kg (R); ak1 Height 6 ft. 0 in. (182.88 cm) (R); Pain 10/10; 23:20 BP 183 / 104; Pulse 70; Resp 18; Pulse Ox 100% on R/A; wh 01/04 00:30 BP 172 / 97; Pulse 65; Resp 18; Pulse Ox 100% ; wh 01:35 BP 165 / 97; Pulse 56; Resp 18; Pulse Ox 10% on R/A; wh 01/03 21:43 Body Mass Index 31.19 (104.33 kg, 182.88 cm) ak1 MDM: 01/03 22:34 Patient medically screened. cp 01/04 00:00 Differential diagnosis: otitis media, otitis externa, ruptured TM, foreign body, cp cerumen impaction, hypertensive crisis, malignant hypertension, CVA. 01:07 Data reviewed: vital signs, nurses notes, lab test result(s), radiologic studies, CT cp scan. 01:07 Counseling: I had a detailed discussion with the patient and/or guardian regarding: the cp historical points, exam findings, and any diagnostic results supporting the discharge/admit diagnosis, the presence of at least one elevated blood pressure reading (>120/80) during this emergency department visit, lab results, radiology results, the need for outpatient follow up, for definitive care, a family practitioner, to return to the emergency department if symptoms worsen or persist or if there are any questions or concerns that arise at home. Response to treatment: the patient's symptoms have markedly improved after treatment, VSS. Blood pressure improved and pain improved. Will discharge to home for continued monitoring. 01/03 23:31 Order name: CBC with Diff; Complete Time: :57 cp 01/04 01:57 Interpretation: Normal except: HGB 13.2; HCT 37.9; EOSINOPHIL % 5.3; BASO% 1.4. cp 01/03 23:31 Order name: BMP; Complete Time: :57 cp 01/04 01:57 Interpretation: Normal except: K 3.3; CL 110; GFR 79; CA 8.2. cp 01/03 23:31 Order name: LFT's; Complete Time: :57 cp 01/03 23:31 Order name: Magnesium; Complete Time: :57 cp 01/03 23:31 Order name: PT-INR; Complete Time: 01:57 cp 01/03 23:31 Order name: Ptt, Activated; Complete Time: 01:57 cp 01/03 23:31 Order name: CT Head Brain wo Cont cp Administered Medications: 01/03 23:00 Drug: Ibuprofen 800 mg Route: PO; 01/04 00:24 Follow up: Response: No adverse reaction; Pain is unchanged, physician notified 01/03 23:02 Drug: Tylenol #3 (300 mg-30 mg) 2 tabs Route: PO; 01/04 00:25 Follow up: Response: No adverse reaction; Pain is unchanged, physician notified 01/03 23:04 Drug: Augmentin 875 mg Route: PO; 01/04 00:25 Follow up: Response: No adverse reaction 00:18 Drug: Benadryl 25 mg Route: IVP; Site: left forearm; 01:41 Follow up: Response: No adverse reaction 00:20 Drug: Reglan 10 mg Route: IVP; Site: left forearm; 01:40 Follow up: Response: No adverse reaction 00:22 Drug: Decadron - Dexamethasone 10 mg Route: IVP; Site: left forearm; 01:40 Follow up: Response: No adverse reaction 00:24 Drug: NS 0.9% 1000 ml Route: IV; Rate: 1 bolus; Site: left forearm; 01:40 Follow up: Response: No adverse reaction; IV Status: Completed infusion 01:07 Drug: Potassium Effervescent Tablet 25 mEq Route: PO; 01:41 Follow up: Response: No adverse reaction 01:17 CANCELLED (Physician Discretion): cloNIDine 0.1 mg PO once 01:33 Drug: Hydrochlorothiazide 25 mg Route: PO; 01:41 Follow up: Response: No adverse reaction 01:42 Follow up: Response: Blood pressure is lowered Disposition: 01/04/19 01:08 Discharged to Home. Impression: Otitis media, unspecified, bilateral, Hypertensive heart disease. - Condition is Stable. - Discharge Instructions: Otitis Media, Adult, Hypertension, How to Take Your Blood Pressure, [id number], Managing Your Hypertension. - Prescriptions for Augmentin 875- 125 mg Oral Tablet - take 1 tablet by ORAL route every 12 hours for 10 days; 20 tablet. Hydrochlorothiazide 25 mg Oral Tablet - take 1 tablet by ORAL route once daily .; 30 tablet. - Medication Reconciliation Form, Thank You Letter, Antibiotic Education, Prescription Opioid Use form. - Follow up: Private Physician; When: 1 - 2 days; Reason: elevated blood pressure. - Problem is new. - Symptoms have improved. Addendum: 01/05/2019 07:56 Co-signature as Attending Physician, Landon Smith MD I agree with the assessment and c shields plan of care. Signatures: Dispatcher [employer] EDOK Landon Smith MD MD cha Krenek, Amber, RN RN ak1 Landon Rahman PA PA cp Ashleigh Jennings Corrections: (The following items were deleted from the chart) 01/04 01:17 01:16 cloNIDine 0.1 mg PO once ordered. cp cp 01:34 01:08 01/04/2019 01:08 Discharged to Home. Impression: Otitis media, unspecified, wh bilateral; Hypertensive heart disease. Condition is Stable. Forms are Medication Reconciliation Form, Thank You Letter, Antibiotic Education, Prescription Opioid Use. Follow up: Private Physician; When: 1 - 2 days; Reason: elevated blood pressure. Problem is new. Symptoms have improved. cp 01:57 01:57 Normal except: K 3.3; CL 110; GFR 79. cp cp
[2019-01-04] MEDS ORDERED: hydroCHLOROthiazide 25 MG TAB ONE (01:33)
[2019-01-04 01:35] LABS: Absolute Lymphocytes (CBC) 1.7 K/uL (0.7-4.9); Basophils % 1.4 % (0-1.3); Hematocrit 37.9 % (39.6-49.0); Lymphocytes % 36.4 % (15.3-44.8); MPV 10.1 fL (7.6-11.3); RBC Red Blood Cell Count 4.44 M/uL (4.33-5.43)
[2019-01-04 01:41] LABS: Protime INR 1.02
[2019-01-04 01:52] LABS: Albumin 3.2 g/dL (3.4-5.0); Bilirubin Direct 0.1 mg/dL (0-0.2); Bilirubin Total 0.3 mg/dL (0.2-1.0); Magnesium 2.2 mg/dL (1.8-2.4); Potassium 3.3 mmol/L (3.5-5.1); Protein, Total 6.2 g/dL (6.4-8.2)
[2019-01-04 03:04] VITALS: TEMP 98.2; O2SAT 100
[2019-01-04 03:07] VITALS: BP 172/97
--- NOTE | 2019-01-05 10:53 | RAD REPORT ---
EXAM DESCRIPTION: CT head without IV contrast CLINICAL HISTORY: Elevated blood pressure;Headache TECHNIQUE: Multiple axial CT images of the brain were performed followed by sagittal and coronal rec onstructed images. The CT study is performed according to ALARA (as low as reasonably achievable) or ALARA/IMAGE GENTLY, with automatic adjustment of mA and/or kV according to patient size. Performed on: 01/04/2019 at 12:10 AM COMPARISON: 09/07/2015. FINDINGS: There is no evidence of mass, acute mass effect or midline shift. There are no acute extra -axial fluid collections. There is no evidence of acute intracranial hemorrhage. The cerebral sulci and ventricles are normal in size and configuration. There are no focal abnormal areas of increased or decreased attenuation. There is mild mucosal thickening of the paranasal sinuses. The mastoid air cells are clear. The orbital contents are grossly unremarkable. No acute osseous abnormalities are identified. No focal soft tissue abnormalities are identified. IMPRESSION: 1. There is no evidence of acute intracranial pathology. Electronically signed by: Jolene Chapin DO 01/04/2019 12:41 AM CDT Due to temporary technical issues with the PACS/Fluency reporting system, reports are being signed by the in house radiologist as a courtesy to ensure prompt reporting. The interpreting radiologist is f ully responsible for the content of the report.
== END 2019-01-04 01:34 | disposition home or self-care (01) ==
LOC: ER 21:23
DX: H66.93 Otitis media, unspecified, bilateral (principal); I11.9 Hypertensive heart disease without heart failure
CPT/HCPCS: 36415; 70450; 80048; 80076; 83735; 85025; 85610; 85730; 96361; 96374; 96375; 99284; J1100; J1200; J2765; J7030

== ENCOUNTER 2019-01-05 18:49 | Emergency (ER) | payer SELFPAY ==
--- NOTE | 2019-01-05 19:37 | ER ---
Nurse's Notes [facility] Name: Cele Lewis Age: 48 yrs Sex: Male : 1970 Arrival Date: 01/05/2019 Time: 18:52 Bed 12 Private MD: Diagnosis: Acute serous otitis media, right ear;Otalgia, right ear Presentation: 01/05 18:56 Presenting complaint: Patient states: Ear aches, tooth pain for the past 2 days. Denies aj1 fever. Transition of care: patient was not received from another setting of care. Onset of symptoms was January 2019. Risk Assessment: Do you want to hurt yourself or someone else? Patient reports no desire to harm self or others. Initial Sepsis Screen: Does the patient meet any 2 criteria? No. Patient's initial sepsis screen is negative. Does the patient have a suspected source of infection? No. Patient's initial sepsis screen is negative. Care prior to arrival: None. 18:56 Method Of Arrival: Ambulatory aj 18:56 Acuity: RIO 4 aj1 Triage Assessment: 18:58 General: Appears in no apparent distress. uncomfortable, Behavior is calm, cooperative, aj1 appropriate for age. Pain: Complains of pain in right jaw, left jaw, right ear and left ear Pain currently is 10 out of 10 on a pain scale. EENT: Reports ear pain, dental pain. Neuro: Level of Consciousness is awake, alert, obeys commands. Cardiovascular: Patient's skin is warm and dry. Respiratory: Airway is patent Respiratory effort is even, unlabored, Respiratory pattern is regular, symmetrical. Historical: - Allergies: 18:58 No Known Allergies; aj1 - Home Meds: 18:58 lisinopril 20 mg Oral tab 1 tab once daily [Active]; aj1 - PMHx: 18:58 Hypertension; aj1 - Immunization history:: Flu vaccine is not up to date. - Social history:: Smoking status: Patient/guardian denies using tobacco. - Ebola Screening: : Patient denies travel to an Ebola-affected area in the 21 days before illness onset. Screenin:30 Abuse screen: Denies threats or abuse. Denies injuries from another. Nutritional ca1 screening: No deficits noted. Tuberculosis screening: No symptoms or risk factors identified. Fall Risk None identified. Assessment: 19:30 General: Appears in no apparent distress. comfortable, Behavior is calm, cooperative, ca1 appropriate for age. Pain: Complains of pain in right mandible and right cheek and right zygomatic area and lower right third molar (#32) and upper right first molar (#3) and upper right second molar (#2) and upper right third molar (#1) Pain currently is 10 out of 10 on a pain scale. 19:30 Neuro: Level of Consciousness is awake, alert, obeys commands, Oriented to person, ca1 place, time, situation, Appropriate for age. EENT: Tympanic membrane reddened on right ear. Derm: Skin is intact, is healthy with good turgor, Skin is pink, warm \T\ dry. Musculoskeletal: Circulation, motion, and sensation intact. Capillary refill < 3 seconds, Range of motion: intact in all extremities. Vital Signs: 18:58 BP 173 / 101; Pulse 79; Resp 18; Temp 98.7; Pulse Ox 97% on R/A; Weight 104.33 kg (R); aj1 Height 6 ft. 0 in. (182.88 cm) (R); Pain 10/10; 18:58 Body Mass Index 31.19 (104.33 kg, 182.88 cm) aj1 ED Course: 18:52 Patient arrived in ED. mr 18:58 Triage completed. aj1 18:58 Arm band placed on Patient placed in an exam room. aj1 19:01 Pura Chaney FNP-C [facility] snw 19:01 Fer Ellison MD is Attending Physician. snw 19:30 Patient has correct armband on for positive identification. Call light in reach. Side ca1 rails up X 1. 19:30 No provider procedures requiring assistance completed. Patient did not have IV access ca1 during this emergency room visit. 19:56 Natalia Aguilar, JOLIE is Primary Nurse. ca1 Administered Medications: 19:41 Drug: [place] 5 mg-325 mg 1 tabs Route: PO; ca1 20:03 Follow up: Response: No adverse reaction ca1 19:45 Drug: Valium 5 mg Route: PO; ca1 20:03 Follow up: Response: No adverse reaction; Pain is decreased ca1 19:47 Drug: Decadron 8 mg Route: PO; ca1 20:03 Follow up: Response: No adverse reaction ca1 19:50 Drug: LevaQUIN 500 mg Route: PO; ca1 20:04 Follow up: Response: No adverse reaction ca1 19:52 Drug: Cortisporin Drops 4 drops Route: Otic; Site: both ears; ca1 Outcome: 19:35 Discharge ordered by MD. harmon 20:05 Discharged to home ambulatory, with family. ca1 20:05 Condition: stable 20:05 Discharge instructions given to patient, Instructed on discharge instructions, follow up and referral plans. medication usage, Demonstrated understanding of instructions, follow-up care, medications, Prescriptions given X 2. 20:06 Patient left the ED. ca1 Signatures: Jaleesa Santiago RN RN aj1 Pura Chaney, HAT FINISHER-C HAT FINISHER-Csnw Angela Thao mr Natalia Aguilar RN RN ca1 Corrections: (The following items were deleted from the chart) 20:02 19:30 EENT: Tympanic membrane reddened on left ear and right ear ca1 ca1
--- NOTE | 2019-01-05 19:37 | EDPHYS ---
Physician Documentation [facility] Name: Cele Lewis Age: 48 yrs Sex: Male : 1970 Arrival Date: 01/05/2019 Time: 18:52 Bed 12 Private MD: ED Physician Fer Ellison HPI: 01/05 19:55 This 48 yrs old Black Male presents to ER via Ambulatory with complaints of Ear Pain, snw Toothache. 19:55 The patient presents with a fullness, pain, swelling, tenderness. The complaints affect snw the right ear, right zygomatic area, right cheek and right mandible. Onset: The symptoms/episode began/occurred gradually, and became worse today. Associated signs and symptoms: The patient has no apparent associated signs or symptoms. Severity of symptoms: At their worst the symptoms were moderate severe in the emergency department the symptoms are worse markedly, moderately. It is unknown whether or not the patient has had similar symptoms in the past. The patient has been recently seen by a physician: The patient has been recently seen at the [facility] Emergency Department, for similar complaints CT scan was performed, was given a prescription for antibiotics, was given a prescription for pain medications. Historical: - Allergies: 18:58 No Known Allergies; aj1 - Home Meds: 18:58 lisinopril 20 mg Oral tab 1 tab once daily [Active]; aj1 - PMHx: 18:58 Hypertension; aj1 - Immunization history:: Flu vaccine is not up to date. - Social history:: Smoking status: Patient/guardian denies using tobacco. - Ebola Screening: : Patient denies travel to an Ebola-affected area in the 21 days before illness onset. ROS: 19:48 Constitutional: Negative for fever, chills, and weight loss, Eyes: Negative for injury, snw pain, redness, and discharge, Cardiovascular: Negative for chest pain, palpitations, and edema, Respiratory: Negative for shortness of breath, cough, wheezing, and pleuritic chest pain, Abdomen/GI: Negative for abdominal pain, nausea, vomiting, diarrhea, and constipation, Back: Negative for injury and pain, : Negative for injury, bleeding, discharge, and swelling, MS/Extremity: Negative for injury and deformity, Skin: Negative for injury, rash, and discoloration, Neuro: Negative for headache, weakness, numbness, tingling, and seizure, Psych: Negative for depression, anxiety, suicide ideation, homicidal ideation, and hallucinations. 19:48 ENT: Positive for ear pain, Teeth pain 19:48 Neck: Positive for swelling, tenderness, of the right ear and right jaw, right post-auricular area (CT negative a few days ago). Exam: 19:53 Constitutional: This is a well developed, well nourished patient who is awake, alert, snw and in no acute distress. Head/Face: Normocephalic, atraumatic. Eyes: Pupils equal round and reactive to light, extra-ocular motions intact. Lids and lashes normal. Conjunctiva and sclera are non-icteric and not injected. Cornea within normal limits. Periorbital areas with no swelling, redness, or edema. Neck: Trachea midline, no thyromegaly or masses palpated, and no cervical lymphadenopathy. Supple, full range of motion without nuchal rigidity, or vertebral point tenderness. No Meningismus. Chest/axilla: Normal chest wall appearance and motion. Nontender with no deformity. No lesions are appreciated. Cardiovascular: Regular rate and rhythm with a normal S1 and S2. No gallops, murmurs, or rubs. Normal PMI, no JVD. No pulse deficits. Respiratory: Lungs have equal breath sounds bilaterally, clear to auscultation and percussion. No rales, rhonchi or wheezes noted. No increased work of breathing, no retractions or nasal flaring. Abdomen/GI: Soft, non-tender, with normal bowel sounds. No distension or tympany. No guarding or rebound. No evidence of tenderness throughout. Back: No spinal tenderness. No costovertebral tenderness. Full range of motion. Skin: Warm, dry with normal turgor. Normal color with no rashes, no lesions, and no evidence of cellulitis. MS/ Extremity: Pulses equal, no cyanosis. Neurovascular intact. Full, normal range of motion. Neuro: Awake and alert, GCS 15, oriented to person, place, time, and situation. Cranial nerves II-XII grossly intact. Motor strength 5/5 in all extremities. Sensory grossly intact. Cerebellar exam normal. Normal gait. Psych: Awake, alert, with orientation to person, place and time. Behavior, mood, and affect are within normal limits. 19:53 ENT: External ear(s): pain with movement, that is mild, of the pinna of right ear and right preauricular area, Ear canal(s): erythema, that is moderate, that is severe, of the right canal, TM's: erythema, that is moderate, on the right, Nose: is normal, Mouth: Lips: normal, Oral mucosa: normal, Gums: swollen, on the right buccal mucosa, Tongue: is normal, Dental exam: pain, that is moderate, that is severe, specifically in the upper right third molar (#1), upper right second molar (#2), upper right first molar (#3) and lower right third molar (#32), Voice: is normal. Vital Signs: 18:58 BP 173 / 101; Pulse 79; Resp 18; Temp 98.7; Pulse Ox 97% on R/A; Weight 104.33 kg (R); aj1 Height 6 ft. 0 in. (182.88 cm) (R); Pain 10/10; 18:58 Body Mass Index 31.19 (104.33 kg, 182.88 cm) aj1 MDM: 19:08 Patient medically screened. snw 19:49 Data reviewed: vital signs, nurses notes. Data interpreted: Pulse oximetry: on room air snw is 97 %. Interpretation: normal. Counseling: I had a detailed discussion with the patient and/or guardian regarding: the historical points, exam findings, and any diagnostic results supporting the discharge/admit diagnosis, the presence of at least one elevated blood pressure reading (>120/80) during this emergency department visit, the need for outpatient follow up, to return to the emergency department if symptoms worsen or persist or if there are any questions or concerns that arise at home. Special discussion: Based on the history and exam findings, there is no indication for further emergent testing or inpatient evaluation. I discussed with the patient/guardian the need to see the ENT specialist for further evaluation of the symptoms. I discussed with the patient/guardian the need to see the primary care provider for further evaluation of the symptoms. Administered Medications: 19:41 Drug: [place] 5 mg-325 mg 1 tabs Route: PO; ca1 20:03 Follow up: Response: No adverse reaction ca1 19:45 Drug: Valium 5 mg Route: PO; ca1 20:03 Follow up: Response: No adverse reaction; Pain is decreased ca1 19:47 Drug: Decadron 8 mg Route: PO; ca1 20:03 Follow up: Response: No adverse reaction ca1 19:50 Drug: LevaQUIN 500 mg Route: PO; ca1 20:04 Follow up: Response: No adverse reaction ca1 19:52 Drug: Cortisporin Drops 4 drops Route: Otic; Site: both ears; ca1 Disposition: 21:26 Co-signature as Attending Physician, Fer Ellison MD I agree with the assessment and wa plan of care. Disposition: 01/05/19 19:35 Discharged to Home. Impression: Acute serous otitis media, right ear, Otalgia, right ear. - Condition is Stable. - Discharge Instructions: Ear Drops, Adult, Otitis Media, Adult, Earache, Adult. - Prescriptions for Levaquin 500 mg Oral Tablet - take 1 tablet by ORAL route once daily for 7 days; 7 tablet. promethazine 25 mg Oral Tablet - take 1 tablet by ORAL route every 6 hours As needed; 20 tablet. - Medication Reconciliation Form, Thank You Letter, Antibiotic Education, Prescription Opioid Use form. - Follow up: Private Physician; When: 2 - 3 days; Reason: Recheck today's complaints, Continuance of care, Re-evaluation by your physician. Follow up: Emergency Department; When: As needed; Reason: Worsening of condition. - Notes: Continue Augmentin as directed Signatures: Jaleesa Santiago RN RN aj1 Pura Chaney, AREA FIELD MANAGER-C AREA FIELD MANAGER-Csnw Fer Ellison MD MD co Natalia Aguilar RN RN ca1 Corrections: (The following items were deleted from the chart) 20:06 19:35 01/05/2019 19:35 Discharged to Home. Impression: Acute serous otitis media, right ca1 ear; Otalgia, right ear. Condition is Stable. Forms are Medication Reconciliation Form, Thank You Letter, Antibiotic Education, Prescription Opioid Use. Follow up: Private Physician; When: 2 - 3 days; Reason: Recheck today's complaints, Continuance of care, Re-evaluation by your physician. Follow up: Emergency Department; When: As needed; Reason: Worsening of condition. snw
[2019-01-05] MEDS ORDERED: NEOMY/POLY/HC 1% OTIC DROPS ONE (19:53)
[2019-01-05] MEDS ORDERED: DIAZEPAM 5 MG TABLET ONE (19:54)
[2019-01-05] MEDS ORDERED: levoFLOXacin 500 MG TAB ONE (19:54)
[2019-01-05] MEDS ORDERED: HYDROCODONE/APAP 5/325 MG TAB ONE (19:54)
[2019-01-05] MEDS ORDERED: dexAMETHasone 4 MG TAB ONE (19:55)
[2019-01-05 21:29] VITALS: BP 173/101; TEMP 98.7; O2SAT 97
== END 2019-01-05 20:06 | disposition home or self-care (01) ==
LOC: ER 18:49
DX: H65.01 Acute serous otitis media, right ear (principal); I10 Essential (primary) hypertension
CPT/HCPCS: 99283; J8540

== ENCOUNTER 2019-02-05 08:08 | Emergency (ER) | payer SELFPAY ==
--- NOTE | 2019-02-05 08:32 | EDPHYS ---
Physician Documentation [facility] Name: Cele Lewis Age: 48 yrs Sex: Male : 1970 Arrival Date: 02/05/2019 Time: 08:10 Bed 19 Private MD: ED Physician Rai Roman HPI: 02/05 08:28 This 48 yrs old Black Male presents to ER via Ambulatory with complaints of Toothache. jr8 08:28 The patient presents with pain. The problem is located in the mouth. Onset: The jr8 symptoms/episode began/occurred acutely, today. Duration: The symptoms are continuous. Modifying factors: The symptoms are alleviated by nothing, the symptoms are aggravated by air, chewing, talking. Associated signs and symptoms: The patient has no apparent associated signs or symptoms. Severity of symptoms: At their worst the symptoms were moderate, in the emergency department the symptoms are unchanged. The patient has not experienced similar symptoms in the past. The patient has not recently seen a physician. woke up with bilateral upper jaw pain this AM . Historical: - Allergies: 08:28 No Known Allergies; jl7 - Home Meds: 08:28 lisinopril 20 mg Oral tab 1 tab once daily [Active]; jl7 - PMHx: 08:28 Hypertension; jl7 - PSHx: 08:28 None; jl7 - Immunization history:: Adult Immunizations not up to date. - Social history:: Smoking status: Patient/guardian denies using tobacco. - Ebola Screening: : No symptoms or risks identified at this time. ROS: 08:28 Constitutional: Negative for fever, chills, and weight loss. jr8 08:28 ENT: Positive for dental pain, Gum pain 08:28 All other systems are negative. Exam: 08:28 Head/Face: Normocephalic, atraumatic. Eyes: Pupils equal round and reactive to light, jr8 extra-ocular motions intact. Lids and lashes normal. Conjunctiva and sclera are non-icteric and not injected. Cornea within normal limits. Periorbital areas with no swelling, redness, or edema. Neck: Trachea midline, no thyromegaly or masses palpated, and no cervical lymphadenopathy. Supple, full range of motion without nuchal rigidity, or vertebral point tenderness. No Meningismus. Cardiovascular: Regular rate and rhythm with a normal S1 and S2. No gallops, murmurs, or rubs. Normal PMI, no JVD. No pulse deficits. Respiratory: Lungs have equal breath sounds bilaterally, clear to auscultation and percussion. No rales, rhonchi or wheezes noted. No increased work of breathing, no retractions or nasal flaring. Abdomen/GI: Soft, non-tender, with normal bowel sounds. No distension or tympany. No guarding or rebound. No evidence of tenderness throughout. Back: No spinal tenderness. No costovertebral tenderness. Full range of motion. Skin: Warm, dry with normal turgor. Normal color with no rashes, no lesions, and no evidence of cellulitis. MS/ Extremity: Pulses equal, no cyanosis. Neurovascular intact. Full, normal range of motion. Neuro: Awake and alert, GCS 15, oriented to person, place, time, and situation. Cranial nerves II-XII grossly intact. Motor strength 5/5 in all extremities. Sensory grossly intact. Cerebellar exam normal. Normal gait. 08:28 ENT: Exam is negative for earache, ear discharge, TM abnormalities, nasal discharge, enlarged tonsils, pharyngitis, exudate, Dental exam: dental caries, that is mild, diffusely, gum swelling, that is mild, specifically in the upper right third molar (#1) and upper left third molar (#16), pain, that is moderate, specifically in the upper right third molar (#1) and upper left third molar (#16), extensive dental decay to bilateral third upper molars . Vital Signs: 08:28 BP 209 / 108; Pulse 54; Resp 17 S; Temp 98.4(O); Pulse Ox 98% on R/A; Weight 104.33 kg 7 (R); Height 6 ft. (182.88 cm) (R); Pain 9/10; 08:57 BP 184 / 98; Pulse 75; Resp 16 S; Pulse Ox 98% on R/A; Pain 7/10; 7 08:28 Body Mass Index 31.19 (104.33 kg, 182.88 cm) [facility] MDM: 08:17 Patient medically screened. [facility] 08:28 Data reviewed: vital signs, nurses notes, and as a result, I will discharge patient. [facility] Data interpreted: Pulse oximetry: on room air is 98 %. Interpretation: normal. Counseling: I had a detailed discussion with the patient and/or guardian regarding: the historical points, exam findings, and any diagnostic results supporting the discharge/admit diagnosis, the need for outpatient follow up, a dentist, to return to the emergency department if symptoms worsen or persist or if there are any questions or concerns that arise at home. 08:31 ED course: BP is elevated but without s/s of end organ compromise. Forgot to take his jr8 BP medications this AM. Will take them as soon as he gets home . Administered Medications: 08:36 Drug: Demerol 50 mg Route: IM; Site: right deltoid; jl7 08:58 Follow up: Response: No adverse reaction; Pain is decreased jl7 08:36 Drug: Zofran 4 mg Route: PO; jl7 08:58 Follow up: Response: No adverse reaction jl7 Disposition: 08:59 Co-signature as Attending Physician, Rai Roman MD. rn Disposition: 02/05/19 08:31 Discharged to Home. Impression: Dental root caries, Dentalgia. - Condition is Stable. - Discharge Instructions: Dental Caries, Adult, Dental Pain. - Prescriptions for Amoxicillin 875 mg Oral Tablet - take 1 tablet by ORAL route every 12 hours for 10 days; 20 tablet. Ibuprofen 800 mg Oral Tablet - take 1 tablet by ORAL route every 12 hours As needed take with food; 20 tablet. Tylenol- Codeine #3 300-30 mg Oral Tablet - take 2 tablets by ORAL route every 6 hours As needed; 12 tablet. - Medication Reconciliation Form, Thank You Letter, Antibiotic Education, Prescription Opioid Use form. - Follow up: Private Physician; When: 2 - 3 days; Reason: Recheck today's complaints, Continuance of care, Re-evaluation by your physician. - Problem is new. - Symptoms have improved. Signatures: Rai Roman MD MD rn Roszak, Josh, PA PA jr8 Jono Mcgregor RN RN jl7 Corrections: (The following items were deleted from the chart) 08:58 08:31 02/05/2019 08:31 Discharged to Home. Impression: Dental root caries; Dentalgia. jl7 Condition is Stable. Forms are Medication Reconciliation Form, Thank You Letter, Antibiotic Education, Prescription Opioid Use. Follow up: Private Physician; When: 2 - 3 days; Reason: Recheck today's complaints, Continuance of care, Re-evaluation by your physician. Problem is new. Symptoms have improved. jr8
--- NOTE | 2019-02-05 08:32 | ER ---
Nurse's Notes [facility] Name: Cele Lewis Age: 48 yrs Sex: Male : 1970 Arrival Date: 02/05/2019 Time: 08:10 Bed 19 Private MD: Diagnosis: Dental root caries;Dentalgia Presentation: 02/05 08:24 Presenting complaint: Patient states: Bilateral upper posterior tooth pain x 2 days. jl7 Transition of care: patient was not received from another setting of care. Onset of symptoms was February 03, 2019. Risk Assessment: Do you want to hurt yourself or someone else? Patient reports no desire to harm self or others. Initial Sepsis Screen: Does the patient meet any 2 criteria? No. Patient's initial sepsis screen is negative. Does the patient have a suspected source of infection? No. Patient's initial sepsis screen is negative. Care prior to arrival: None. 08:24 Method Of Arrival: Ambulatory jl7 08:24 Acuity: RIO 3 jl7 Triage Assessment: 08:28 General: Appears in no apparent distress. uncomfortable, Behavior is calm, cooperative, jl7 appropriate for age. Pain: Complains of pain in upper right third molar and upper left third molar Pain currently is 9 out of 10 on a pain scale. EENT: Reports pain in upper right third molar and upper left third molar. Neuro: Level of Consciousness is awake, alert, obeys commands, Oriented to person, place, time, situation. Cardiovascular: Patient's skin is warm and dry. Respiratory: Airway is patent Respiratory effort is even, unlabored, Respiratory pattern is regular, symmetrical. Derm: Skin is pink, warm \T\ dry. Historical: - Allergies: 08:28 No Known Allergies; jl7 - Home Meds: 08:28 lisinopril 20 mg Oral tab 1 tab once daily [Active]; jl7 - PMHx: 08:28 Hypertension; jl7 - PSHx: 08:28 None; jl7 - Immunization history:: Adult Immunizations not up to date. - Social history:: Smoking status: Patient/guardian denies using tobacco. - Ebola Screening: : No symptoms or risks identified at this time. Screenin:27 Abuse screen: Denies threats or abuse. Denies injuries from another. Nutritional jl7 screening: No deficits noted. Tuberculosis screening: No symptoms or risk factors identified. Fall Risk None identified. Assessment: 08:27 General: See triage assessment. jl7 08:36 Reassessment: Pt will be discharged after shot time. jl7 Vital Signs: 08:28 BP 209 / 108; Pulse 54; Resp 17 S; Temp 98.4(O); Pulse Ox 98% on R/A; Weight 104.33 kg jl7 (R); Height 6 ft. (182.88 cm) (R); Pain 9/10; 08:57 BP 184 / 98; Pulse 75; Resp 16 S; Pulse Ox 98% on R/A; Pain 7/10; jl7 08:28 Body Mass Index 31.19 (104.33 kg, 182.88 cm) jl7 ED Course: 08:10 Patient arrived in ED. as 08:16 Jono Mcgregor RN is Primary Nurse. jl7 08:17 Pablo Greene PA is PHCP. jr8 08:17 Rai Roman MD is Attending Physician. jr8 08:26 Triage completed. jl7 08:27 Patient has correct armband on for positive identification. Bed in low position. Call jl7 light in reach. Side rails up X 1. Pulse ox on. NIBP on. 08:28 Arm band placed on right wrist. jl7 08:37 No provider procedures requiring assistance completed. Patient did not have IV access jl7 during this emergency room visit. Administered Medications: 08:36 Drug: Demerol 50 mg Route: IM; Site: right deltoid; jl7 08:58 Follow up: Response: No adverse reaction; Pain is decreased jl7 08:36 Drug: Zofran 4 mg Route: PO; jl7 08:58 Follow up: Response: No adverse reaction jl7 Outcome: 08:31 Discharge ordered by . jr8 08:57 Discharged to home ambulatory. jl7 08:57 Condition: stable 08:57 Discharge instructions given to patient, family, Instructed on discharge instructions, follow up and referral plans. medication usage, Demonstrated understanding of instructions, follow-up care, medications, Prescriptions given X 3. 08:58 Patient left the ED. jl7 Signatures: Ankita England as Pablo Greene PA PA jr8 Jono Mcgregor RN RN jl7
[2019-02-05] MEDS ORDERED: MEPERIDINE HCL 50 MG/ML ONE (08:33)
[2019-02-05] MEDS ORDERED: ONDANSETRON 4 MG (ODT) TAB ONE (08:33)
[2019-02-05 09:24] VITALS: TEMP 98.4; O2SAT 98
[2019-02-05 09:25] VITALS: BP 184/98
== END 2019-02-05 08:58 | disposition home or self-care (01) ==
LOC: ER 08:08
DX: K02.7 Dental root caries (principal); I10 Essential (primary) hypertension
CPT/HCPCS: 96372; 99283; J2175

== ENCOUNTER 2019-05-17 09:41 | Emergency (ER) | payer SELFPAY ==
[2019-05-17] MEDS ORDERED: HYDROCODONE/APAP 10/325 TAB ONE (10:22)
[2019-05-17] MEDS ORDERED: KETOROLAC 30 MG/ML INJ ONE (10:22)
[2019-05-17] MEDS ORDERED: cloNIDine HCL 0.1 MG TAB ONE (10:22)
--- NOTE | 2019-05-17 10:37 | EDPHYS ---
Physician Documentation [facility] Name: Cele Lewis Age: 48 yrs Sex: Male : 1970 Arrival Date: 05/17/2019 Time: 09:43 Bed 14 Private MD: ED Physician Landon Smith HPI: 05/16 09:49 This 48 yrs old Black Male presents to ER via Ambulatory with complaints of Toothache. jr8 09:49 The patient presents with pain, redness, swelling. The problem is located in the mouth. jr8 Onset: The symptoms/episode began/occurred acutely, yesterday. Duration: The symptoms are continuous. Modifying factors: The symptoms are alleviated by nothing, the symptoms are aggravated by air, chewing, talking. Associated signs and symptoms: The patient has no apparent associated signs or symptoms. Severity of symptoms: At their worst the symptoms were moderate, in the emergency department the symptoms are unchanged. The patient has not experienced similar symptoms in the past. The patient has not recently seen a physician. Historical: - Allergies: 09:52 No Known Allergies; ss - Home Meds: 09:52 lisinopril 20 mg Oral tab 1 tab once daily [Active]; ss - PMHx: 09:52 Hypertension; ss - Immunization history:: Adult Immunizations up to date. - Social history:: Smoking status: Patient denies any tobacco usage or history of. ROS: 09:49 Eyes: Negative for injury, pain, redness, and discharge, Neck: Negative for injury, jr8 pain, and swelling, Cardiovascular: Negative for chest pain, palpitations, and edema, Respiratory: Negative for shortness of breath, cough, wheezing, and pleuritic chest pain, Abdomen/GI: Negative for abdominal pain, nausea, vomiting, diarrhea, and constipation, Back: Negative for injury and pain, MS/Extremity: Negative for injury and deformity, Skin: Negative for injury, rash, and discoloration, Neuro: Negative for headache, weakness, numbness, tingling, and seizure. 09:49 ENT: Positive for dental pain, Gum pain Exam: 09:49 Eyes: Pupils equal round and reactive to light, extra-ocular motions intact. Lids and jr8 lashes normal. Conjunctiva and sclera are non-icteric and not injected. Cornea within normal limits. Periorbital areas with no swelling, redness, or edema. Neck: Trachea midline, no thyromegaly or masses palpated, and no cervical lymphadenopathy. Supple, full range of motion without nuchal rigidity, or vertebral point tenderness. No Meningismus. Cardiovascular: Regular rate and rhythm with a normal S1 and S2. No gallops, murmurs, or rubs. Normal PMI, no JVD. No pulse deficits. Respiratory: Lungs have equal breath sounds bilaterally, clear to auscultation and percussion. No rales, rhonchi or wheezes noted. No increased work of breathing, no retractions or nasal flaring. Abdomen/GI: Soft, non-tender, with normal bowel sounds. No distension or tympany. No guarding or rebound. No evidence of tenderness throughout. Back: No spinal tenderness. No costovertebral tenderness. Full range of motion. Skin: Warm, dry with normal turgor. Normal color with no rashes, no lesions, and no evidence of cellulitis. MS/ Extremity: Pulses equal, no cyanosis. Neurovascular intact. Full, normal range of motion. Neuro: Awake and alert, GCS 15, oriented to person, place, time, and situation. Cranial nerves II-XII grossly intact. Motor strength 5/5 in all extremities. Sensory grossly intact. Cerebellar exam normal. Normal gait. 09:49 ENT: Exam is negative for earache, ear discharge, TM abnormalities, nasal discharge, pharyngitis, Dental exam: abscess, is not appreciated, dental caries, that is moderate, diffusely, gum swelling, that is mild, diffusely, pain, that is moderate, specifically in the lower left second molar (#18) and lower left first molar (#19). Vital Signs: 09:50 BP 202 / 108; Pulse 83; Resp 16; Temp 97.6(TE); Pulse Ox 100% on R/A; Weight 104.33 kg; ss Height 6 ft. 0 in. (182.88 cm); Pain 10/10; 10:46 BP 176 / 108; Pulse 76; Resp 18; Temp 97.8; Pulse Ox 100% on R/A; ph 09:50 Body Mass Index 31.19 (104.33 kg, 182.88 cm) MDM: 09:45 Patient medically screened. [facility] 09:49 Data reviewed: vital signs, nurses notes, and as a result, I will discharge patient. jr8 Data interpreted: Pulse oximetry: on room air is 100 %. Interpretation: normal. Counseling: I had a detailed discussion with the patient and/or guardian regarding: the historical points, exam findings, and any diagnostic results supporting the discharge/admit diagnosis, the need for outpatient follow up, a dentist, to return to the emergency department if symptoms worsen or persist or if there are any questions or concerns that arise at home. 10:39 ED course: Last narcotics prescription from [facility] site was 02/19... Quantity of 12 given. jr8 Patient safe to have another prescription. Low likelihood of abuse suspected . Administered Medications: 10:25 Drug: Catano 10 mg-325 mg 1 tabs Route: PO; ph 10:57 Follow up: Response: No adverse reaction ph 10:25 Drug: cloNIDine 0.2 mg Route: PO; ph 10:58 Follow up: Response: No adverse reaction; Blood pressure is lowered ph 10:26 Drug: TORadol - Ketorolac 15 mg Route: IM; Site: left deltoid; ph 10:57 Follow up: Response: No adverse reaction ph Disposition: 05/17 09:28 Co-signature as Attending Physician, Landon Smith MD I agree with the assessment and carl plan of care. Disposition: 05/17/19 10:37 Discharged to Home. Impression: Dental caries, Dentalgia, Periapical abscess without sinus, Essential (primary) hypertension. - Condition is Stable. - Discharge Instructions: Dental Abscess, Dental Pain. - Prescriptions for Augmentin 875- 125 mg Oral Tablet - take 1 tablet by ORAL route every 12 hours for 10 days; 20 tablet. Ibuprofen 800 mg Oral Tablet - take 1 tablet by ORAL route every 12 hours As needed take with food; 20 tablet. Tylenol- Codeine #3 300-30 mg Oral Tablet - take 2 tablets by ORAL route every 6 hours As needed; 20 tablet. - Medication Reconciliation Form, Thank You Letter, Antibiotic Education, Prescription Opioid Use form. - Follow up: Private Physician; When: 2 - 3 days; Reason: Recheck today's complaints, Continuance of care, Re-evaluation by your physician. - Problem is new. - Symptoms have improved. Signatures: Landon Smith MD MD cha Smirch, Shelby, RN RN Pablo Briggs PA PA jr8 Garcia, Katlyn, RN RN ph Corrections: (The following items were deleted from the chart) 05/16 10:38 10:37 05/17/2019 10:37 Discharged to Home. Impression: Dental caries; Dentalgia; jr8 Periapical abscess without sinus. Condition is Stable. Forms are Medication Reconciliation Form, Thank You Letter, Antibiotic Education, Prescription Opioid Use. Follow up: Private Physician; When: 2 - 3 days; Reason: Recheck today's complaints, Continuance of care, Re-evaluation by your physician. Problem is new. Symptoms have improved. jr8 10:59 10:38 05/17/2019 10:37 Discharged to Home. Impression: Dental caries; Dentalgia; ph Periapical abscess without sinus; Essential (primary) hypertension. Condition is Stable. Discharge Instructions: Dental Abscess, Dental Pain. Prescriptions for Augmentin 875-125 mg Oral Tablet - take 1 tablet by ORAL route every 12 hours for 10 days; 20 tablet, Ibuprofen 800 mg Oral Tablet - take 1 tablet by ORAL route every 12 hours As needed take with food; 20 tablet, Tylenol-Codeine #3 300-30 mg Oral Tablet - take 2 tablets by ORAL route every 6 hours As needed; 20 tablet. and Forms are Medication Reconciliation Form, Thank You Letter, Antibiotic Education, Prescription Opioid Use. Follow up: Private Physician; When: 2 - 3 days; Reason: Recheck today's complaints, Continuance of care, Re-evaluation by your physician. Problem is new. Symptoms have improved. jr8
--- NOTE | 2019-05-17 10:37 | ER ---
Nurse's Notes [facility] Name: Cele Lewis Age: 48 yrs Sex: Male : 1970 Arrival Date: 05/17/2019 Time: 09:43 Bed 14 Private MD: Diagnosis: Dental caries;Dentalgia;Periapical abscess without sinus;Essential (primary) hypertension Presentation: 05/16 09:47 Chief complaint: Chief complaint: Patient states: dental pain x "a couple days". ph Coronavirus screen: The patient has NOT traveled to a country currently being monitored by the [facility] within the last 14 days. The patient has NOT had contact with any known and/or suspected case of coronavirus. Ebola Screen: No symptoms or risks identified at this time. Initial Sepsis Screen: Does the patient meet any 2 criteria? No. Patient's initial sepsis screen is negative. Does the patient have a suspected source of infection? No. Patient's initial sepsis screen is negative. Risk Assessment: Do you want to hurt yourself or someone else? Patient reports no desire to harm self or others. 09:47 Method Of Arrival: Ambulatory ph 09:50 Acuity: RIO 2 ss Historical: - Allergies: 09:52 No Known Allergies; ss - Home Meds: 09:52 lisinopril 20 mg Oral tab 1 tab once daily [Active]; ss - PMHx: 09:52 Hypertension; ss - Immunization history:: Adult Immunizations up to date. - Social history:: Smoking status: Patient denies any tobacco usage or history of. Screenin:46 Abuse screen: Denies threats or abuse. Denies injuries from another. Nutritional ph screening: No deficits noted. Tuberculosis screening: No symptoms or risk factors identified. Fall Risk None identified. Assessment: 10:26 General: Appears in no apparent distress. uncomfortable, Behavior is calm, cooperative, ph appropriate for age, Denies fever. Pain: Complains of pain in mouth. Neuro: Level of Consciousness is awake, alert, obeys commands, Oriented to person, place, time, situation. Cardiovascular: Capillary refill < 3 seconds in bilateral fingers Patient's skin is warm and dry. Respiratory: Airway is patent Respiratory effort is even, unlabored, Respiratory pattern is regular, symmetrical. GI: No signs and/or symptoms were reported involving the gastrointestinal system. EENT: Poor dentition noted. Derm: Skin is intact, Skin is pink, warm \\T\\ dry. Musculoskeletal: Circulation, motion, and sensation intact. Range of motion: intact in all extremities. Vital Signs: 09:50 BP 202 / 108; Pulse 83; Resp 16; Temp 97.6(TE); Pulse Ox 100% on R/A; Weight 104.33 kg; ss Height 6 ft. 0 in. (182.88 cm); Pain 10/10; 10:46 BP 176 / 108; Pulse 76; Resp 18; Temp 97.8; Pulse Ox 100% on R/A; ph 09:50 Body Mass Index 31.19 (104.33 kg, 182.88 cm) ED Course: 09:43 Patient arrived in ED. mr 09:45 Landon Smith MD is Attending Physician. carl 09:46 Katlyn Garcia, JOLIE is Primary Nurse. ph 09:46 Pablo Greene PA is PHCP. eb 09:47 Arm band placed on Patient placed in an exam room. ph 09:48 Patient has correct armband on for positive identification. Bed in low position. Call ph light in reach. Side rails up X 1. Pulse ox on. NIBP on. Door closed. Noise minimized. 09:52 Triage completed. ss 10:56 No provider procedures requiring assistance completed. Patient did not have IV access ph during this emergency room visit. Administered Medications: 10:25 Drug: Rudyard 10 mg-325 mg 1 tabs Route: PO; ph 10:57 Follow up: Response: No adverse reaction ph 10:25 Drug: cloNIDine 0.2 mg Route: PO; ph 10:58 Follow up: Response: No adverse reaction; Blood pressure is lowered ph 10:26 Drug: TORadol - Ketorolac 15 mg Route: IM; Site: left deltoid; ph 10:57 Follow up: Response: No adverse reaction ph Outcome: 10:37 Discharge ordered by . jrMallory 10:56 Discharged to home ambulatory, with significant other. ph 10:56 Condition: good 10:56 Discharge instructions given to patient, Instructed on discharge instructions, follow up and referral plans. medication usage, Demonstrated understanding of instructions, follow-up care, medications, Prescriptions given X 3. 10:59 Patient left the ED. ph Signatures: Landon Smith MD MD cha Rivera, Mary mr Smirch, Shelby, RN RN Pablo Greene PA PA jr8 Katlyn Garcia RN RN Joana Cantrell Corrections: (The following items were deleted from the chart) :52 09:47 Chief complaint: ph
[2019-05-17 11:23] VITALS: BP 176/108; TEMP 97.8; O2SAT 100
== END 2019-05-17 10:59 | disposition home or self-care (01) ==
LOC: ER 09:41
DX: K04.7 Periapical abscess without sinus (principal); I10 Essential (primary) hypertension
CPT/HCPCS: 96372; 99283

== ENCOUNTER 2019-07-30 21:21 | Emergency (ER) | payer SELFPAY ==
[2019-07-30] MEDS ORDERED: BUPIVACAINE 0.5% PF 10 ML VIAL ONE (21:36)
[2019-07-30] MEDS ORDERED: KETOROLAC 30 MG/ML INJ ONE (21:45)
[2019-07-30] MEDS ORDERED: CLINDAMYCIN IV 150 MG/ML (4 mL) VIAL ONE (21:45)
[2019-07-30] MEDS ORDERED: cloNIDine HCL 0.1 MG TAB ONE (21:54)
[2019-07-30 22:30] VITALS: TEMP 98.4
[2019-07-30 22:32] VITALS: BP 189/113; O2SAT 98
--- NOTE | 2019-08-03 16:31 | ER ---
Nurse's Notes [facility] Name: Cele Lewis Age: 48 yrs Sex: Male : 1970 Arrival Date: 07/30/2019 Time: 21:23 Bed 4 Private MD: Diagnosis: Dental caries Presentation: 07/29 21:29 Chief complaint: Patient states: Upper jaw tooth and gum pain for 3 days. No fever. ll1 States his upper mouth was swollen yesterday, No known fever. Coronavirus screen: Proceed with normal triage. Patient denies a cough. Patient denies shortness of breath or difficulty breathing. Patient denies measured and/or subjective temperature greater than 100.4F prior to today's visit. Patient denies travel on a cruise ship or to a country the [facility] currently lists as an affected area. Patient denies contact with known and/or suspected case of COVID-19. Ebola Screen: Patient denies travel to an Ebola-affected area in the 21 days before illness onset. Initial Sepsis Screen: Does the patient meet any 2 criteria? No. Patient's initial sepsis screen is negative. Does the patient have a suspected source of infection? Yes: Skin breakdown/wound Other: upper jaw tooth and gum pain. Risk Assessment: Do you want to hurt yourself or someone else? Patient reports no desire to harm self or others. Onset of symptoms was July 28, 2019. 21:29 Method Of Arrival: Ambulatory ll1 21:29 Acuity: RIO 3 ll1 Historical: - Allergies: 21:32 No Known Drug Allergies; ll1 - PMHx: 21:32 Hypertension; ll1 - PSHx: 21:32 None; ll1 - Immunization history:: Adult Immunizations up to date. - Social history:: Patient/guardian denies using alcohol, street drugs, tobacco products, Smoking status: unknown. Screenin:35 Abuse screen: Denies threats or abuse. Nutritional screening: No deficits noted. jd3 Tuberculosis screening: No symptoms or risk factors identified. Fall Risk Ambulatory Aid- None/Bed Rest/Nurse Assist (0 pts). Gait- Normal/Bed Rest/Wheelchair (0 pts) Mental Status- Oriented to own ability (0 pts). Total Kaye Fall Scale indicates No Risk (0-24 pts). Assessment: 21:33 General: Appears in no apparent distress. uncomfortable, Behavior is calm, cooperative, jd3 appropriate for age. Pain: Complains of pain in mouth Quality of pain is described as sharp, shooting, tender. Neuro: Level of Consciousness is awake, alert, obeys commands, Oriented to person, place, time, situation. Cardiovascular: Capillary refill < 3 seconds Patient's skin is warm and dry. Respiratory: Airway is patent Respiratory effort is even, unlabored, Respiratory pattern is regular, symmetrical, Denies cough, shortness of breath. GI: No signs and/or symptoms were reported involving the gastrointestinal system. : No signs and/or symptoms were reported regarding the genitourinary system. EENT: Oral mucosa is dry. Poor dentition noted. Derm: Skin is intact, Skin is dry, Skin is normal, Skin temperature is warm. Musculoskeletal: Circulation, motion, and sensation intact. Range of motion: intact in all extremities. 22:05 Reassessment: Patient appears in no apparent distress at this time. No changes from jd3 previously documented assessment. Patient and/or family updated on plan of care and expected duration. Pain level reassessed. Patient is alert, oriented x 3, equal unlabored respirations, skin warm/dry/pink. 22:21 Reassessment: Patient appears in no apparent distress at this time. Patient and/or d3 family updated on plan of care and expected duration. Pain level reassessed. Patient is alert, oriented x 3, equal unlabored respirations, skin warm/dry/pink. Patient states feeling better. Vital Signs: 21:29 Pulse 87; Resp 18; Temp 98.4; Pulse Ox 99% ; Pain 10/10; ll1 21:34 BP 226 / 116; ll1 22:03 BP 189 / 113; Pulse 63; Resp 17 S; Pulse Ox 98% on R/A; jd3 ED Course: 21:23 Patient arrived in ED. cl3 21:25 Misael Melton PA is PHCP. jmm 21:25 Arnold Winslow MD is Attending Physician. jmm 21:31 Triage completed. ll1 21:32 Arm band placed on Patient placed in an exam room, on a stretcher. ll1 21:33 Davey Mcmahon RN is Primary Nurse. jd3 21:35 Patient has correct armband on for positive identification. Bed in low position. Call jd3 light in reach. Side rails up X 1. Pulse ox on. NIBP on. 22:21 No provider procedures requiring assistance completed. Patient did not have IV access jbenito during this emergency room visit. Administered Medications: 21:44 Drug: Clindamycin 600 mg Route: IM; Site: left gluteus; jd3 22:21 Follow up: Response: No adverse reaction jd3 21:44 Drug: Ketorolac 30 mg Route: IM; Site: right deltoid; jd3 22:21 Follow up: Response: No adverse reaction jd3 21:49 Drug: cloNIDine 0.2 mg Route: PO; jd3 22:22 Follow up: Response: No adverse reaction jd3 Outcome: 22:11 Discharge ordered by MD. roberts 22:21 Discharged to home ambulatory. jd3 22:21 Condition: stable 22:21 Discharge instructions given to patient, Instructed on discharge instructions, follow up and referral plans. medication usage, Demonstrated understanding of instructions, follow-up care, medications, Prescriptions given X 2. 22:22 Patient left the ED. jd3 Signatures: Misael Melton PA PA jmm Davies, Jonathon, RN RN jd3 Pierre Martinez cl3 Tavon Martinez RN RN ll1
--- NOTE | 2019-08-03 16:32 | EDPHYS ---
Physician Documentation [facility] Name: Cele Lewis Age: 48 yrs Sex: Male : 1970 Arrival Date: 07/30/2019 Time: 21:23 Bed 4 Private MD: ED Physician Arnold Winslow HPI: 07/29 21:39 This 48 yrs old Black Male presents to ER via Ambulatory with complaints of Mouth jmm Problem. 21:39 The patient presents with pain. Onset: The symptoms/episode began/occurred gradually, 3 jmm day(s) ago. Duration: The symptoms are continuous, and are steadily getting worse. Modifying factors: The symptoms are alleviated by nothing, the symptoms are aggravated by chewing, cold fluids, food, hot fluids. Associated signs and symptoms: Pertinent negatives: fever. The patient has experienced similar episodes in the past, several times. Historical: - Allergies: 21:32 No Known Drug Allergies; ll1 - PMHx: 21:32 Hypertension; ll1 - PSHx: 21:32 None; ll1 - Immunization history:: Adult Immunizations up to date. - Social history:: Patient/guardian denies using alcohol, street drugs, tobacco products, Smoking status: unknown. ROS: 21:39 Constitutional: Negative for fever, chills, and weight loss. jmm 21:39 Cardiovascular: Negative for chest pain, palpitations, and edema, Respiratory: Negative for shortness of breath, cough, wheezing, and pleuritic chest pain. 21:39 ENT: Positive for dental pain. 21:39 Neuro: Negative for dizziness. 21:39 All other systems are negative. Exam: 21:39 Constitutional: This is a well developed, well nourished patient who is awake, alert, jmm and in no acute distress. Head/Face: atraumatic. Eyes: EOMI, no conjunctival erythema appreciated 21:39 Neck: Trachea midline, Supple Chest/axilla: Normal chest wall appearance and motion. Cardiovascular: Regular rate and rhythm. No edema appreciated Respiratory: Normal respirations, no respiratory distress appreciated Abdomen/GI: Non distended, soft Back: Normal ROM Skin: General appearance color normal MS/ Extremity: Moves all extremities, no obvious deformities appreciated, no edema noted to the lower extremities Neuro: Awake and alert, normal gait Psych: Behavior is normal, Mood is normal, Patient is cooperative and pleasant 21:39 ENT: Mouth: Gums: reddened, swollen, on the gums, upper right second molar, upper right first molar, upper right second bicuspid, upper right first bicuspid, upper right cuspid, upper right lateral incisor and upper right central incisor, Dental exam: dental caries, that is moderate, specifically in the upper right second molar (#2), upper right first molar (#3), upper right second bicuspid (#4), upper right first bicuspid (#5), upper right cuspid (#6) and upper right central incisor (#8). Vital Signs: 21:29 Pulse 87; Resp 18; Temp 98.4; Pulse Ox 99% ; Pain 10/10; ll1 21:34 BP 226 / 116; ll1 22:03 BP 189 / 113; Pulse 63; Resp 17 S; Pulse Ox 98% on R/A; jd3 MDM: 21:25 Patient medically screened. [facility] 21:49 Data reviewed: vital signs, nurses notes. Counseling: I had a detailed discussion with [facility] the patient and/or guardian regarding: the historical points, exam findings, and any diagnostic results supporting the discharge/admit diagnosis, the need for outpatient follow up, to return to the emergency department if symptoms worsen or persist or if there are any questions or concerns that arise at home. ED course: SPACE ENGINEER score 410. 22:08 Data reviewed:. ED course: patient advised to follow up with dentist, patient given [facility] strict return precautions. patient understood and agrees with the plan of care. . Administered Medications: 21:44 Drug: Clindamycin 600 mg Route: IM; Site: left gluteus; jd3 22:21 Follow up: Response: No adverse reaction jd3 21:44 Drug: Ketorolac 30 mg Route: IM; Site: right deltoid; jd3 22:21 Follow up: Response: No adverse reaction jd3 21:49 Drug: cloNIDine 0.2 mg Route: PO; jd3 22:22 Follow up: Response: No adverse reaction jd3 Disposition: 22:55 Co-signature as Attending Physician, Arnold Winslow MD. mh7 Disposition: 07/30/19 22:11 Discharged to Home. Impression: Dental caries. - Condition is Stable. - Discharge Instructions: Dental Pain. - Prescriptions for Amoxicillin 875 mg Oral Tablet - take 1 tablet by ORAL route every 12 hours for 10 days; 20 tablet. Ultracet 37.5- 325 mg Oral Tablet - take 1 tablet by ORAL route every 6 hours - for up to 5 days; do not exceed 8 tablets per day.; 12 tablet. - Medication Reconciliation Form, Thank You Letter, Antibiotic Education, Prescription Opioid Use form. - Follow up: Private Physician; When: 2 - 3 days; Reason: Recheck today's complaints, Continuance of care, Re-evaluation by your physician. Signatures: Misael Melton PA PA jmm Davies, Jonathon RN RN jd3 Tavon Martinez RN RN ll1 Arnold Winslow MD MD mh7 Corrections: (The following items were deleted from the chart) 22:22 22:11 07/30/2019 22:11 Discharged to Home. Impression: Dental caries. Condition is jd3 Stable. Forms are Medication Reconciliation Form, Thank You Letter, Antibiotic Education, Prescription Opioid Use. Follow up: Private Physician; When: 2 - 3 days; Reason: Recheck today's complaints, Continuance of care, Re-evaluation by your physician. alejandra
== END 2019-07-30 22:22 | disposition home or self-care (01) ==
LOC: ER 21:21
DX: K02.9 Dental caries, unspecified (principal); I10 Essential (primary) hypertension
CPT/HCPCS: 96372; 99283; S0077

== ENCOUNTER 2019-11-25 22:21 | Emergency (ER) | payer SELFPAY ==
--- NOTE | 2019-11-26 01:03 | ER ---
Nurse's Notes [facility] Name: Cele Lewis Age: 49 yrs Sex: Male : 1970 Arrival Date: 11/25/2019 Time: 22:24 Bed 15 Private MD: Diagnosis: Dental caries;Essential (primary) hypertension Presentation: 11/24 22:34 Chief complaint: Patient states: pain in back lower teeth and jaw on both sides. Pt dm5 states he tastes blood every once in a while. Slight swelling noted to both sides pain rated at 9/10. BP in triage elevated. Pt normally takes lisinopril and has taken medication today. Coronavirus screen: Client denies travel out of the [place] in the last 14 days. At this time, the client does not indicate any symptoms associated with coronavirus-19. Ebola Screen: Patient negative for fever greater than or equal to 101.5 degrees Fahrenheit, and additional compatible Ebola Virus Disease symptoms Patient denies exposure to infectious person. Patient denies travel to an Ebola-affected area in the 21 days before illness onset. No symptoms or risks identified at this time. Initial Sepsis Screen: Does the patient meet any 2 criteria? No. Patient's initial sepsis screen is negative. Does the patient have a suspected source of infection? Yes: Other: teeth. Risk Assessment: Do you want to hurt yourself or someone else? Patient reports no desire to harm self or others. Onset of symptoms was November 21, 2019. 22:34 Method Of Arrival: Ambulatory dm5 22:34 Acuity: RIO 4 dm5 Historical: - Allergies: 22:37 No Known Allergies; dm5 - Home Meds: 22:37 lisinopril 20 mg Oral tab 1 tab once daily [Active]; dm5 - PMHx: 22:37 Hypertension; dm5 - PSHx: 22:37 None; dm5 - Social history:: Smoking status: Patient denies any tobacco usage or history of. Screenin/24 01:10 Abuse screen: Denies threats or abuse. Denies injuries from another. Nutritional sg screening: No deficits noted. Tuberculosis screening: No symptoms or risk factors identified. Never had TB. Fall Risk None identified. Assessment: 01:10 General: Appears in no apparent distress. uncomfortable, well groomed, well developed, sg well nourished, Behavior is calm, cooperative, appropriate for age. Pain: Complains of pain in right jaw and left jaw Quality of pain is described as tender. Neuro: Level of Consciousness is awake, alert, obeys commands, Oriented to person, place, time, Tunneller are equal bilaterally Speech is normal, Facial symmetry appears normal. Cardiovascular: Capillary refill is brisk in bilateral fingers Patient's skin is warm and dry. Chest pain is denied. Respiratory: Airway is patent Respiratory effort is even, unlabored, Respiratory pattern is regular, symmetrical. GI: No signs and/or symptoms were reported involving the gastrointestinal system. : No signs and/or symptoms were reported regarding the genitourinary system. EENT: No signs and/or symptoms were reported regarding the EENT system. EENT: Oral mucosa is moist. Poor dentition noted. Throat is pink. Derm: Skin is pink, warm \T\ dry. Musculoskeletal: Circulation, motion, and sensation intact. Range of motion: intact in all extremities. Vital Signs: 11/24 22:34 BP 164 / 116; Pulse 67; Resp 20; Temp 97.8; Pulse Ox 100% on R/A; Weight 104.33 kg (R); dm5 Height 6 ft. 0 in. (182.88 cm); Pain 9/10; 11/25 01:51 BP 142 / 78; Pulse 66; Resp 17; Temp 97.7; Pulse Ox 100% on R/A; Pain 6/10; sg 11/24 22:34 Body Mass Index 31.19 (104.33 kg, 182.88 cm) dm5 ED Course: 11/24 22:24 Patient arrived in ED. bp1 22:37 Triage completed. dm5 22:37 Arm band placed on Patient placed in waiting room. dm5 11/25 01:02 Landon Smith MD is Attending Physician. carl 01:08 Alli Eddy, JOLIE is Primary Nurse. sg 01:10 Patient has correct armband on for positive identification. Bed in low position. Call sg light in reach. Side rails up X2. Pulse ox on. NIBP on. Warm blanket given. Head of bed elevated. 01:15 No provider procedures requiring assistance completed. Patient did not have IV access sg during this emergency room visit. Administered Medications: 01:17 Drug: [place] 5 mg-325 mg 1 tabs Route: PO; sg 01:17 Drug: Clindamycin 600 mg Route: IM; Site: right ventrogluteal; sg 01:17 Drug: Lisinopril 20 mg Route: PO; sg Outcome: 01:03 Discharge ordered by . faustino 01:20 Discharged to home ambulatory, with family. sg 01:20 Condition: good 01:20 Discharge instructions given to patient, dry cleaning manager, Instructed on discharge instructions, follow up and referral plans. medication usage, safety practices, Demonstrated understanding of instructions, follow-up care, medications, Prescriptions given X 2. 01:23 Patient left the ED. mg2 Signatures: Cuca Olson, RN RN dm5 Alli Eddy RN RN sg Anderson, Corey, MD MD cha Waters, Shelly, GROUND SERVICES INSTRUCTOR-C GROUND SERVICES INSTRUCTOR-Csnw Jonnathan Calvert, RN RN mg2 Elysia Orlando
--- NOTE | 2019-11-26 01:03 | EDPHYS ---
Physician Documentation [facility] Name: Cele Lewis Age: 49 yrs Sex: Male : 1970 Arrival Date: 11/25/2019 Time: 22:24 Bed 15 Private MD: MARGIE Physician Landon Smith HPI: 11/25 01:06 This 49 yrs old Black Male presents to ER via Ambulatory with complaints of Teeth Pain, snw Jaw Pain. 01:06 Onset: The symptoms/episode began/occurred gradually, 4 day(s) ago, and became worse 2 snw day(s) ago. Associated signs and symptoms: Pertinent positives: pain, swelling. Modifying factors: The patient symptoms are alleviated by nothing, the patient symptoms are aggravated by cold environment, drinking, eating food, talking. It is unknown whether or not the patient has had similar symptoms in the past. The patient has not recently seen a physician. pt did not take his Lisinopril today. Historical: - Allergies: 11/24 22:37 No Known Allergies; dm5 - Home Meds: 22:37 lisinopril 20 mg Oral tab 1 tab once daily [Active]; dm5 - PMHx: 22:37 Hypertension; dm5 - PSHx: 22:37 None; dm5 - Social history:: Smoking status: Patient denies any tobacco usage or history of. ROS: 11/25 01:05 Constitutional: Negative for fever, chills, and weight loss, Eyes: Negative for injury, snw pain, redness, and discharge, Neck: Negative for injury, pain, and swelling, Cardiovascular: Negative for chest pain, palpitations, and edema, Respiratory: Negative for shortness of breath, cough, wheezing, and pleuritic chest pain, Abdomen/GI: Negative for abdominal pain, nausea, vomiting, diarrhea, and constipation, Back: Negative for injury and pain, : Negative for injury, bleeding, discharge, and swelling, MS/Extremity: Negative for injury and deformity, Skin: Negative for injury, rash, and discoloration, Neuro: Negative for headache, weakness, numbness, tingling, and seizure, Psych: Negative for depression, anxiety, suicide ideation, homicidal ideation, and hallucinations. ENT: Positive for dental pain. Exam: 01:05 Constitutional: This is a well developed, well nourished patient who is awake, alert, snw and in no acute distress. Head/Face: Normocephalic, atraumatic. Eyes: Pupils equal round and reactive to light, extra-ocular motions intact. Lids and lashes normal. Conjunctiva and sclera are non-icteric and not injected. Cornea within normal limits. Periorbital areas with no swelling, redness, or edema. ENT: Nares patent. No nasal discharge, no septal abnormalities noted. Tympanic membranes are normal and external auditory canals are clear. Oropharynx with no redness, swelling, or masses, exudates, or evidence of obstruction, uvula midline. Mucous membranes moist. upper molars bilaterally with decay to the gingiva. Neck: Trachea midline, no thyromegaly or masses palpated, and no cervical lymphadenopathy. Supple, full range of motion without nuchal rigidity, or vertebral point tenderness. No Meningismus. Chest/axilla: Normal chest wall appearance and motion. Nontender with no deformity. No lesions are appreciated. Cardiovascular: Regular rate and rhythm with a normal S1 and S2. No gallops, murmurs, or rubs. Normal PMI, no JVD. No pulse deficits. Respiratory: Lungs have equal breath sounds bilaterally, clear to auscultation and percussion. No rales, rhonchi or wheezes noted. No increased work of breathing, no retractions or nasal flaring. Abdomen/GI: Soft, non-tender, with normal bowel sounds. No distension or tympany. No guarding or rebound. No evidence of tenderness throughout. Back: No spinal tenderness. No costovertebral tenderness. Full range of motion. Skin: Warm, dry with normal turgor. Normal color with no rashes, no lesions, and no evidence of cellulitis. MS/ Extremity: Pulses equal, no cyanosis. Neurovascular intact. Full, normal range of motion. Neuro: Awake and alert, GCS 15, oriented to person, place, time, and situation. Cranial nerves II-XII grossly intact. Motor strength 5/5 in all extremities. Sensory grossly intact. Cerebellar exam normal. Normal gait. Psych: Awake, alert, with orientation to person, place and time. Behavior, mood, and affect are within normal limits. Vital Signs: 11/24 22:34 BP 164 / 116; Pulse 67; Resp 20; Temp 97.8; Pulse Ox 100% on R/A; Weight 104.33 kg (R); dm5 Height 6 ft. 0 in. (182.88 cm); Pain 10; 11/25 01:51 BP 142 / 78; Pulse 66; Resp 17; Temp 97.7; Pulse Ox 100% on R/A; Pain 6/10; sg 11/24 22:34 Body Mass Index 31.19 (104.33 kg, 182.88 cm) dm5 MDM: 01:02 Patient medically screened. [facility] 01:05 Data reviewed: vital signs, nurses notes. Data interpreted: Pulse oximetry: on room air snw is 100 %. Interpretation: normal. Counseling: I had a detailed discussion with the patient and/or guardian regarding: the historical points, exam findings, and any diagnostic results supporting the discharge/admit diagnosis, the need for outpatient follow up, to return to the emergency department if symptoms worsen or persist or if there are any questions or concerns that arise at home, smoking cessation. Special discussion: I have referred the patient to see his PCP for further evaluation of high blood pressure. Based on the history and exam findings, there is no indication for further emergent testing or inpatient evaluation. I discussed with the patient/guardian the need to see a dentist for further evaluation of the symptoms. I discussed with the patient/guardian the need to see the primary care provider for further evaluation of the symptoms. Administered Medications: 01:17 Drug: [place] 5 mg-325 mg 1 tabs Route: PO; sg 01:17 Drug: Clindamycin 600 mg Route: IM; Site: right ventrogluteal; sg 01:17 Drug: Lisinopril 20 mg Route: PO; sg Disposition: 11/26/19 01:03 Discharged to Home. Impression: Dental caries, Essential (primary) hypertension. - Condition is Stable. - Discharge Instructions: Dental Abscess, Dental Pain, Hypertension, Smoking Hazards, Diet and Dental Disease, DASH Eating Plan, Managing Your Hypertension, Preventive Dental Care, Adult. - Prescriptions for Clindamycin HCl 150 mg Oral Capsule - take 2 capsule by ORAL route every 8 hours for 10 days; 60 capsule. Mobic 7.5 mg Oral Tablet - take 1 tablet by ORAL route once daily take with food; 20 tablet. - Work release form, Medication Reconciliation Form, Thank You Letter, Antibiotic Education, Prescription Opioid Use form. - Follow up: Emergency Department; When: As needed; Reason: Worsening of condition. Follow up: Private Physician; When: 1 - 2 days; Reason: Recheck today's complaints, Continuance of care, Re-evaluation by your physician. Addendum: 11/27/2019 11:10 Co-signature as Attending Physician, Landon Smith MD I agree with the assessment and c shields plan of care. Signatures: Cuca Olson, RN RN dm5 Alli Eddy RN RN sg Anderson, Corey, MD MD cha Waters, Shelly, WHARF TALLY CLERK-C WHARF TALLY CLERK-Csnw Jonnathan Calvert, JOLIE RN mg2 Corrections: (The following items were deleted from the chart) 11/25 01:03 01:03 11/26/2019 01:03 Discharged to Home. Impression: Dental caries. Condition is snw Stable. Forms are Medication Reconciliation Form, Thank You Letter, Antibiotic Education, Prescription Opioid Use. Follow up: Emergency Department; When: As needed; Reason: Worsening of condition. Follow up: Private Physician; When: 1 - 2 days; Reason: Recheck today's complaints, Continuance of care, Re-evaluation by your physician. snw 01:23 01:03 11/26/2019 01:03 Discharged to Home. Impression: Dental caries; Essential mg2 (primary) hypertension. Condition is Stable. Forms are Medication Reconciliation Form, Thank You Letter, Antibiotic Education, Prescription Opioid Use. Follow up: Emergency Department; When: As needed; Reason: Worsening of condition. Follow up: Private Physician; When: 1 - 2 days; Reason: Recheck today's complaints, Continuance of care, Re-evaluation by your physician. snw
[2019-11-26] MEDS ORDERED: CLINDAMYCIN IV 150 MG/ML (4 mL) VIAL ONE (01:22)
[2019-11-26] MEDS ORDERED: lisinopriL 20 MG TAB ONE (01:22)
[2019-11-26] MEDS ORDERED: HYDROCODONE/APAP 5/325 MG TAB ONE (01:22)
[2019-11-26 01:38] VITALS: BP 164/116; TEMP 97.8; O2SAT 100
== END 2019-11-26 01:23 | disposition home or self-care (01) ==
LOC: ER 22:21
DX: I10 Essential (primary) hypertension (principal)
CPT/HCPCS: 96372; 99283; S0077

== ENCOUNTER 2020-01-17 12:12 | Emergency (ER) | payer SELFPAY ==
--- NOTE | 2020-01-17 13:36 | ER ---
Nurse's Notes [facility] Name: Cele Lewis Age: 49 yrs Sex: Male : 1970 Arrival Date: 01/17/2020 Time: 12:14 Bed 7 Private MD: Diagnosis: Periapical abscess without sinus Presentation: 01/16 12:28 Chief complaint: Patient states: Upper part of my teeth, whole is hurting, it's hurting ca1 my eyes and head. It started Saturday evening. I got a dentist appointment this but it just hurts right now. Coronavirus screen: Client denies travel out of the [place] in the last 14 days. At this time, the client does not indicate any symptoms associated with coronavirus-19. Ebola Screen: Patient negative for fever greater than or equal to 101.5 degrees Fahrenheit, and additional compatible Ebola Virus Disease symptoms Patient denies exposure to infectious person. Patient denies travel to an Ebola-affected area in the 21 days before illness onset. No symptoms or risks identified at this time. Initial Sepsis Screen: Does the patient meet any 2 criteria? No. Patient's initial sepsis screen is negative. Does the patient have a suspected source of infection? No. Patient's initial sepsis screen is negative. Risk Assessment: Do you want to hurt yourself or someone else? Patient reports no desire to harm self or others. Onset of symptoms was January 17, 2020. 12:28 Method Of Arrival: Ambulatory ca1 12:28 Acuity: RIO 4 ca1 Triage Assessment: 12:53 Headache History: The patient has had previous headaches and this one is similar to bp previous episodes. General: Appears in no apparent distress. uncomfortable, Behavior is calm, cooperative, appropriate for age. Pain: Complains of pain in mouth Pain currently is 7 out of 10 on a pain scale. Pain began gradually, Also complains of no other associated symptoms. EENT: Reports TOOTH PAIN. Neuro: Level of Consciousness is awake, alert, obeys commands, Oriented to Appropriate for age. Cardiovascular: No deficits noted. Respiratory: No deficits noted. GI: No signs and/or symptoms were reported involving the gastrointestinal system. : No signs and/or symptoms were reported regarding the genitourinary system. Derm: No deficits noted. Musculoskeletal: No deficits noted. Historical: - Allergies: 12:32 No Known Allergies; ca1 - Home Meds: 12:32 lisinopril 20 mg Oral tab 1 tab once daily [Active]; ca1 - PMHx: 12:32 Hypertension; ca1 - PSHx: 12:32 None; ca1 - Immunization history:: Adult Immunizations up to date, Flu vaccine is up to date. - Social history:: Smoking status: Patient denies any tobacco usage or history of. Screenin:54 Abuse screen: Denies threats or abuse. Denies injuries from another. Nutritional bp screening: No deficits noted. Tuberculosis screening: No symptoms or risk factors identified. Fall Risk None identified. Assessment: 12:54 General: SEE TRIAGE NOTE. Pain: Complains of pain in mouth. bp 14:14 Reassessment: PT D/C HOME AMBULATORY, DX WITH PERIAPICAL ABSCESS. bp Vital Signs: 12:28 BP 180 / 101; Pulse 60; Resp 16 S; Temp 98.3(TE); Pulse Ox 100% on R/A; Weight 106.59 ca1 kg (R); Height 6 ft. 0 in. (182.88 cm) (R); Pain 10/10; 14:00 BP 171 / 97; Pulse 63; Resp 17; Temp 98.3; Pulse Ox 100% ; bp 12:28 Body Mass Index 31.87 (106.59 kg, 182.88 cm) ca1 ED Course: 12:14 Patient arrived in ED. ag5 12:31 Triage completed. ca1 12:32 Arm band placed on right wrist. ca1 12:52 Mauricio Banegas, RN is Primary Nurse. bp 12:54 Patient has correct armband on for positive identification. Bed in low position. Call bp light in reach. Side rails up X2. 13:09 Genoveva Bowman FNP-C is PHCP. kb 13:09 Rai Roman MD is Attending Physician. kb 14:00 No provider procedures requiring assistance completed. Patient did not have IV access bp during this emergency room visit. Administered Medications: 13:45 Drug: [place] 10 mg-325 mg 1 tabs Route: PO; bp 14:13 Follow up: Response: Pain is decreased bp 13:45 Drug: Augmentin 875 mg Route: PO; bp 14:13 Follow up: Response: No adverse reaction bp Outcome: 13:36 Discharge ordered by . kb 14:10 Discharged to home ambulatory. bp 14:10 Condition: stable 14:10 Discharge instructions given to patient, family, Instructed on discharge instructions, follow up and referral plans. medication usage, Demonstrated understanding of instructions, follow-up care, medications, splint care, Prescriptions given X 2. 14:17 Patient left the ED. bp Signatures: Genoveva Bowman, ARSLAN-C Mauricio Valente RN RN bp Natalia Aguilar RN RN [facility] Yadira Wright [facility]
--- NOTE | 2020-01-17 13:36 | EDPHYS ---
Physician Documentation [facility] Name: Cele Lewis Age: 49 yrs Sex: Male : 1970 Arrival Date: 01/17/2020 Time: 12:14 Bed 7 Private MD: ED Physician Rai Roman HPI: 01/16 13:29 This 49 yrs old Black Male presents to ER via Ambulatory with complaints of Headache, kb Mouth Problem. 13:32 The patient presents with pain, redness, swelling. The problem is located in the left kb buccal mucosa and right buccal mucosa. Onset: The symptoms/episode began/occurred 3 day(s) ago. Duration: The symptoms are continuous. Modifying factors: The symptoms are alleviated by nothing, the symptoms are aggravated by chewing. Associated signs and symptoms: Pertinent positives: pain, redness in area, swelling. Severity of symptoms: At their worst the symptoms were moderate, in the emergency department the symptoms are unchanged. The patient has experienced similar episodes in the past. The patient has not recently seen a physician. Pt reports pain to upper teeth and gums that radiates up face. States he has had this before and was told that he needs most of the upper teeth removed by the dentist. Pt made an appt with his dentist, but is unable to be seen until Saturday so he came to get some pain relief until he is able to go to the appt. . Historical: - Allergies: 12:32 No Known Allergies; ca1 - Home Meds: 12:32 lisinopril 20 mg Oral tab 1 tab once daily [Active]; ca1 - PMHx: 12:32 Hypertension; ca1 - PSHx: 12:32 None; ca1 - Immunization history:: Adult Immunizations up to date, Flu vaccine is up to date. - Social history:: Smoking status: Patient denies any tobacco usage or history of. ROS: 13:32 Constitutional: Negative for fever, chills, and weight loss, Cardiovascular: Negative kb for chest pain, palpitations, and edema, Respiratory: Negative for shortness of breath, cough, wheezing, and pleuritic chest pain, Abdomen/GI: Negative for abdominal pain, nausea, vomiting, diarrhea, and constipation, MS/Extremity: Negative for injury and deformity, Skin: Negative for injury, rash, and discoloration, Neuro: Negative for headache, weakness, numbness, tingling, and seizure. 13:32 ENT: Positive for Teeth pain Exam: 13:32 Constitutional: This is a well developed, well nourished patient who is awake, alert, kb and in no acute distress. Head/Face: Normocephalic, atraumatic. Chest/axilla: Normal chest wall appearance and motion. Nontender with no deformity. No lesions are appreciated. Cardiovascular: Regular rate and rhythm with a normal S1 and S2. No gallops, murmurs, or rubs. Normal PMI, no JVD. No pulse deficits. Respiratory: Lungs have equal breath sounds bilaterally, clear to auscultation and percussion. No rales, rhonchi or wheezes noted. No increased work of breathing, no retractions or nasal flaring. Abdomen/GI: Soft, non-tender, with normal bowel sounds. No distension or tympany. No guarding or rebound. No evidence of tenderness throughout. Skin: Warm, dry with normal turgor. Normal color with no rashes, no lesions, and no evidence of cellulitis. MS/ Extremity: Pulses equal, no cyanosis. Neurovascular intact. Full, normal range of motion. Neuro: Awake and alert, GCS 15, oriented to person, place, time, and situation. Cranial nerves II-XII grossly intact. Motor strength 5/5 in all extremities. Sensory grossly intact. Cerebellar exam normal. Normal gait. 13:32 ENT: Dental exam: gum swelling, that is moderate, specifically in the upper right third molar (#1), upper right second molar (#2), upper right first molar (#3), upper left first molar (#14), upper left second molar (#15) and upper left third molar (#16), pain, that is moderate. Vital Signs: 12:28 BP 180 / 101; Pulse 60; Resp 16 S; Temp 98.3(TE); Pulse Ox 100% on R/A; Weight 106.59 ca1 kg (R); Height 6 ft. 0 in. (182.88 cm) (R); Pain 10/10; 14:00 BP 171 / 97; Pulse 63; Resp 17; Temp 98.3; Pulse Ox 100% ; bp 12:28 Body Mass Index 31.87 (106.59 kg, 182.88 cm) ca1 MDM: 13:09 Patient medically screened. kb 13:32 Data reviewed: vital signs, nurses notes. Data interpreted: Pulse oximetry: on room air kb is 100 %. Interpretation: normal. Counseling: I had a detailed discussion with the patient and/or guardian regarding: the historical points, exam findings, and any diagnostic results supporting the discharge/admit diagnosis, the need for outpatient follow up, a dentist, to return to the emergency department if symptoms worsen or persist or if there are any questions or concerns that arise at home. Administered Medications: 13:45 Drug: [place] 10 mg-325 mg 1 tabs Route: PO; bp 14:13 Follow up: Response: Pain is decreased bp 13:45 Drug: Augmentin 875 mg Route: PO; bp 14:13 Follow up: Response: No adverse reaction bp Disposition: 14:29 Co-signature as Attending Physician, Rai Roman MD. rn Disposition: 01/17/20 13:36 Discharged to Home. Impression: Periapical abscess without sinus. - Condition is Stable. - Discharge Instructions: Dental Pain, [id number], Dental Abscess, [id number]. - Prescriptions for Augmentin 875- 125 mg Oral Tablet - take 1 tablet by ORAL route every 12 hours for 10 days; 20 tablet. Tramadol 50 mg Oral Tablet - take 1 tablet by ORAL route every 8 hours as needed; 12 tablet. - Medication Reconciliation Form, Thank You Letter, Antibiotic Education, Prescription Opioid Use form. - Follow up: Emergency Department; When: As needed; Reason: Worsening of condition. Follow up: Private Physician; When: 2 - 3 days; Reason: Recheck today's complaints, Continuance of care, Re-evaluation by your physician. Signatures: Genoveva Bowman, DIESEL DINKEY OPERATOR-C DIESEL DINKEY OPERATOR-Ckb Rai Roman MD MD rn Peltier, Brian, RN RN bp Natalia Aguilar RN RN ca1 Corrections: (The following items were deleted from the chart) 14:17 13:36 01/17/2020 13:36 Discharged to Home. Impression: Periapical abscess without bp sinus. Condition is Stable. Forms are Medication Reconciliation Form, Thank You Letter, Antibiotic Education, Prescription Opioid Use. Follow up: Emergency Department; When: As needed; Reason: Worsening of condition. Follow up: Private Physician; When: 2 - 3 days; Reason: Recheck today's complaints, Continuance of care, Re-evaluation by your physician. kb
[2020-01-17] MEDS ORDERED: HYDROCODONE/APAP 10/325 TAB ONE (14:15)
[2020-01-17] MEDS ORDERED: AMOX/K CLAV 875 MG TAB ONE (14:16)
[2020-01-17 14:38] VITALS: TEMP 98.3; O2SAT 100
[2020-01-17 14:40] VITALS: BP 171/97
== END 2020-01-17 14:17 | disposition home or self-care (01) ==
LOC: ER 12:12
DX: K04.7 Periapical abscess without sinus (principal); I10 Essential (primary) hypertension
CPT/HCPCS: 99283

== ENCOUNTER 2020-01-30 21:39 | Emergency (ER) | payer SELFPAY ==
[2020-01-30] MEDS ORDERED: MORPHINE 4 MG/ML SYR ONE (22:44)
[2020-01-30] MEDS ORDERED: cloNIDine HCL 0.1 MG TAB ONE (22:44)
[2020-01-30] MEDS ORDERED: PROMETHAZINE 25 MG TABLET ONE (22:45)
--- NOTE | 2020-01-30 22:47 | EDPHYS ---
Physician Documentation [facility] Name: Cele Lewis Age: 49 yrs Sex: Male : 1970 Arrival Date: 01/30/2020 Time: 21:41 Bed 24 Private MD: ED Physician Arnold Winslow HPI: 01/29 22:28 This 49 yrs old Black Male presents to ER via Ambulatory with complaints of Teeth Pain. snw 22:28 Onset: The symptoms/episode began/occurred gradually, 2 day(s) ago, at an unknown time. snw Associated signs and symptoms: Pertinent positives: dental pain. Modifying factors: The patient symptoms are alleviated by nothing. The patient has experienced similar episodes in the past. It is unknown whether or not the patient has recently seen a physician. took 40mg Lisinopril at 1600. pt states he has appt with Dentist on .. Historical: - Allergies: 22:18 No Known Allergies; sg - PMHx: 22:18 Hypertension; sg - PSHx: 22:18 None; sg - Immunization history:: Adult Immunizations up to date. - Social history:: Smoking status: Patient denies any tobacco usage or history of. ROS: 22:27 Constitutional: Negative for fever, chills, and weight loss, Eyes: Negative for injury, snw pain, redness, and discharge, Neck: Negative for injury, pain, and swelling, Cardiovascular: Negative for chest pain, palpitations, and edema, Respiratory: Negative for shortness of breath, cough, wheezing, and pleuritic chest pain, Abdomen/GI: Negative for abdominal pain, nausea, vomiting, diarrhea, and constipation, Back: Negative for injury and pain, : Negative for injury, bleeding, discharge, and swelling, MS/Extremity: Negative for injury and deformity, Skin: Negative for injury, rash, and discoloration, Neuro: Negative for headache, weakness, numbness, tingling, and seizure, Psych: Negative for depression, anxiety, suicide ideation, homicidal ideation, and hallucinations. 22:27 ENT: Positive for dental pain. Exam: 22:27 Constitutional: This is a well developed, well nourished patient who is awake, alert, snw and in no acute distress. Head/Face: Normocephalic, atraumatic. Eyes: Pupils equal round and reactive to light, extra-ocular motions intact. Lids and lashes normal. Conjunctiva and sclera are non-icteric and not injected. Cornea within normal limits. Periorbital areas with no swelling, redness, or edema. ENT: Nares patent. No nasal discharge, no septal abnormalities noted. Tympanic membranes are normal and external auditory canals are clear. Oropharynx with no redness, swelling, or masses, exudates, or evidence of obstruction, uvula midline. Mucous membranes moist. left and right upper and lower dental caries and decay up into gingiva Neck: Trachea midline, no thyromegaly or masses palpated, and no cervical lymphadenopathy. Supple, full range of motion without nuchal rigidity, or vertebral point tenderness. No Meningismus. Chest/axilla: Normal chest wall appearance and motion. Nontender with no deformity. No lesions are appreciated. Cardiovascular: Regular rate and rhythm with a normal S1 and S2. No gallops, murmurs, or rubs. Normal PMI, no JVD. No pulse deficits. Respiratory: Lungs have equal breath sounds bilaterally, clear to auscultation and percussion. No rales, rhonchi or wheezes noted. No increased work of breathing, no retractions or nasal flaring. Abdomen/GI: Soft, non-tender, with normal bowel sounds. No distension or tympany. No guarding or rebound. No evidence of tenderness throughout. Back: No spinal tenderness. No costovertebral tenderness. Full range of motion. Skin: Warm, dry with normal turgor. Normal color with no rashes, no lesions, and no evidence of cellulitis. MS/ Extremity: Pulses equal, no cyanosis. Neurovascular intact. Full, normal range of motion. Neuro: Awake and alert, GCS 15, oriented to person, place, time, and situation. Cranial nerves II-XII grossly intact. Motor strength 5/5 in all extremities. Sensory grossly intact. Cerebellar exam normal. Normal gait. Psych: Awake, alert, with orientation to person, place and time. Behavior, mood, and affect are within normal limits. Vital Signs: 21:43 BP 208 / 114; Pulse 70; Resp 19; Temp 97.7; Pulse Ox 98% on R/A; sg 23:10 BP 182 / 82; Pulse 82; Resp 18; Temp 97.7; Pulse Ox 99% on R/A; sg MDM: 22:17 Patient medically screened. snw 22:48 Data reviewed: vital signs, nurses notes. Data interpreted: Pulse oximetry: on room air snw is 98 %. Interpretation: normal. Administered Medications: 22:30 Drug: morphine 8 mg Route: IM; Site: right deltoid; sg 22:40 Follow up: Response: No adverse reaction; Pain is decreased sg 22:30 Drug: Phenergan 25 mg Route: PO; sg 22:40 Follow up: Response: No adverse reaction sg 22:30 Drug: cloNIDine 0.2 mg Route: PO; sg 22:40 Follow up: Response: No adverse reaction sg 22:30 Drug: Clindamycin 300 mg Route: PO; sg 22:40 Follow up: Response: No adverse reaction Disposition: 01/30 07:20 Co-signature as Attending Physician, Arnold Winslow MD. [email or web address] Disposition: 01/30/20 22:46 Discharged to Home. Impression: Dental caries, Chronic apical periodontitis. - Condition is Stable. - Discharge Instructions: Dental Caries, Adult, Dental Pain, Hypertension, Diet and Dental Disease, Preventive Dental Care, Adult. - Prescriptions for chlorhexidine gluconate 0.12 % Mucous Membrane mouthwash - place 15 milliliter by MUCOUS MEMBRANE route 2 times per day after brushing teeth, swish in mouth for 30 seconds then spit out; 480 milliliter. Clindamycin HCl 300 mg Oral Capsule - take 1 capsule by ORAL route every 6 hours for 10 days; 40 capsule. Ultram 50 mg Oral Tablet - take 1 tablet by ORAL route every 6 hours As needed; 12 tablet. - Medication Reconciliation Form, Thank You Letter, Antibiotic Education, Prescription Opioid Use form. - Follow up: Emergency Department; When: As needed; Reason: Worsening of condition. Follow up: Private Physician; When: 1 week; Reason: Recheck today's complaints, Continuance of care, Re-evaluation by your physician. Signatures: Alli Eddy RN RN sg Waters, Shelly, FNP-C ASRLAN-Arnold Spain MD MD [email or web address] Corrections: (The following items were deleted from the chart) 01/29 23:12 22:46 01/30/2020 22:46 Discharged to Home. Impression: Dental caries; Chronic apical sg periodontitis. Condition is Stable. Discharge Instructions: Dental Caries, Adult, Dental Pain, Hypertension, Diet and Dental Disease, Preventive Dental Care, Adult. Prescriptions for chlorhexidine gluconate 0.12 % Mucous Membrane mouthwash - place 15 milliliter by MUCOUS MEMBRANE route 2 times per day after brushing teeth, swish in mouth for 30 seconds then spit out; 480 milliliter, Clindamycin HCl 300 mg Oral Capsule - take 1 capsule by ORAL route every 6 hours for 10 days; 40 capsule, Mobic 7.5 mg Oral Tablet - take 1 tablet by ORAL route every 12 hours take with food; 20 tablet. and Forms are Medication Reconciliation Form, Thank You Letter, Antibiotic Education, Prescription Opioid Use. Follow up: Emergency Department; When: As needed; Reason: Worsening of condition. Follow up: Private Physician; When: 1 week; Reason: Recheck today's complaints, Continuance of care, Re-evaluation by your physician. [facility] 23:22 23:12 01/30/2020 22:46 Discharged to Home. Impression: Dental caries; Chronic apical sg periodontitis. Condition is Stable. Discharge Instructions: Dental Caries, Adult, Dental Pain, Hypertension, Diet and Dental Disease, Preventive Dental Care, Adult. Prescriptions for chlorhexidine gluconate 0.12 % Mucous Membrane mouthwash - place 15 milliliter by MUCOUS MEMBRANE route 2 times per day after brushing teeth, swish in mouth for 30 seconds then spit out; 480 milliliter, Clindamycin HCl 300 mg Oral Capsule - take 1 capsule by ORAL route every 6 hours for 10 days; 40 capsule, Mobic 7.5 mg Oral Tablet - take 1 tablet by ORAL route every 12 hours take with food; 20 tablet. and Forms are Medication Reconciliation Form, Thank You Letter, Antibiotic Education, Prescription Opioid Use. Follow up: Emergency Department; When: As needed; Reason: Worsening of condition. Follow up: Private Physician; When: 1 week; Reason: Recheck today's complaints, Continuance of care, Re-evaluation by your physician. sg
--- NOTE | 2020-01-30 22:47 | ER ---
Nurse's Notes [facility] Name: Cele Lewis Age: 49 yrs Sex: Male : 1970 Arrival Date: 01/30/2020 Time: 21:41 Bed 24 Private MD: Diagnosis: Dental caries;Chronic apical periodontitis Presentation: 01/29 21:43 Acuity: RIO 4 sg 21:43 Chief complaint: Patient states: Right side top and bottom molars are causing pain and sg swelling, pt states pain has been ongoing now for several day. Coronavirus screen: Client denies travel out of the [place] in the last 14 days. At this time, the client does not indicate any symptoms associated with coronavirus-19. Ebola Screen: Patient negative for fever greater than or equal to 101.5 degrees Fahrenheit, and additional compatible Ebola Virus Disease symptoms Patient denies exposure to infectious person. Patient denies travel to an Ebola-affected area in the 21 days before illness onset. No symptoms or risks identified at this time. Initial Sepsis Screen: Does the patient meet any 2 criteria? No. Patient's initial sepsis screen is negative. Does the patient have a suspected source of infection? No. Patient's initial sepsis screen is negative. Risk Assessment: Do you want to hurt yourself or someone else? Patient reports no desire to harm self or others. Onset of symptoms was January 30, 2020. Care prior to arrival: None. Transition of care: patient was not received from another setting of care. 21:43 Method Of Arrival: Ambulatory sg Historical: - Allergies: 22:18 No Known Allergies; sg - PMHx: 22:18 Hypertension; sg - PSHx: 22:18 None; sg - Immunization history:: Adult Immunizations up to date. - Social history:: Smoking status: Patient denies any tobacco usage or history of. Screenin:43 Abuse screen: Denies threats or abuse. Denies injuries from another. Nutritional sg screening: No deficits noted. Tuberculosis screening: No symptoms or risk factors identified. Never had TB. Fall Risk None identified. Assessment: 21:43 General: Appears in no apparent distress. well groomed, well developed, well nourished, sg Behavior is calm, cooperative, appropriate for age. Pain: Complains of pain in right cheek and right jaw Quality of pain is described as. Neuro: Level of Consciousness is awake, alert, obeys commands, Oriented to person, place, time, Speech is normal, Facial symmetry appears normal. Cardiovascular: Patient's skin is warm and dry. Chest pain is denied. Respiratory: Airway is patent Respiratory effort is even, unlabored, Respiratory pattern is regular, symmetrical. GI: No signs and/or symptoms were reported involving the gastrointestinal system. : No signs and/or symptoms were reported regarding the genitourinary system. EENT: No signs and/or symptoms were reported regarding the EENT system. Derm: Skin is intact, is healthy with good turgor, Skin is dry, Skin is normal, Skin temperature is warm. Musculoskeletal: Circulation, motion, and sensation intact. Range of motion: intact in all extremities. Vital Signs: 21:43 BP 208 / 114; Pulse 70; Resp 19; Temp 97.7; Pulse Ox 98% on R/A; sg 23:10 BP 182 / 82; Pulse 82; Resp 18; Temp 97.7; Pulse Ox 99% on R/A; sg ED Course: 21:41 Patient arrived in ED. bp1 21:43 Triage completed. sg 21:43 Arm band placed on. sg 21:43 No provider procedures requiring assistance completed. Patient did not have IV access sg during this emergency room visit. 22:13 Pura Thornton FNP-C is [facility]. snw 22:13 Arnold Winslow MD is Attending Physician. snw 22:20 Alli Eddy, RN is Primary Nurse. sg 23:10 Patient has correct armband on for positive identification. Bed in low position. Call sg light in reach. Side rails up X2. Pulse ox on. NIBP on. 23:19 Primary Nurse role handed off by Alli Eddy, JOLIE snw Administered Medications: 22:30 Drug: morphine 8 mg Route: IM; Site: right deltoid; sg 22:40 Follow up: Response: No adverse reaction; Pain is decreased sg 22:30 Drug: Phenergan 25 mg Route: PO; sg 22:40 Follow up: Response: No adverse reaction sg 22:30 Drug: cloNIDine 0.2 mg Route: PO; sg 22:40 Follow up: Response: No adverse reaction sg 22:30 Drug: Clindamycin 300 mg Route: PO; sg 22:40 Follow up: Response: No adverse reaction sg Outcome: 22:46 Discharge ordered by . faustino 23:10 Discharged to home ambulatory, with family. sg 23:10 Condition: good 23:10 Discharge instructions given to patient, Instructed on discharge instructions, follow up and referral plans. medication usage, safety practices, Demonstrated understanding of instructions, follow-up care, Prescriptions given X 3. 23:12 Patient left the ED. sg 23:22 Patient left the ED. sg Signatures: Alli Eddy RN RN Pura Raymond, FOOD AND BEVERAGE ASSISTANT MANAGER-C FOOD AND BEVERAGE ASSISTANT MANAGER-Csnw Elysia Orlando [facility]
[2020-01-31 02:44] VITALS: BP 208/114; TEMP 97.7; O2SAT 98
== END 2020-01-30 23:22 | disposition home or self-care (01) ==
LOC: ER 21:39
DX: K04.5 Chronic apical periodontitis (principal); I10 Essential (primary) hypertension
CPT/HCPCS: 96372; 99283; Q0169

== ENCOUNTER 2020-02-24 | Emergency (ER) | payer SELFPAY ==
--- NOTE | 2020-02-24 17:29 | ER ---
Nurse's Notes [facility] Name: Cele Lewis Age: 49 yrs Sex: Male : 1970 Arrival Date: 02/24/2020 Time: 14:30 Bed 8 Private MD: Diagnosis: Other disorders of teeth and supporting structures-pain;Dental caries Presentation: 02/23 14:51 Chief complaint: Patient states: tooth pain x 3 days. Now is having neck pain. sv Coronavirus screen: Client denies travel out of the [place] in the last 14 days. At this time, the client does not indicate any symptoms associated with coronavirus-19. Ebola Screen: No symptoms or risks identified at this time. Risk Assessment: Do you want to hurt yourself or someone else? Patient reports no desire to harm self or others. Onset of symptoms was February 21, 2020. 14:51 Method Of Arrival: Ambulatory sv 14:51 Acuity: ROI 4 sv 14:52 Initial Sepsis Screen: Does the patient meet any 2 criteria? No. Patient's initial sv sepsis screen is negative. Does the patient have a suspected source of infection? No. Patient's initial sepsis screen is negative. Triage Assessment: 14:54 General: Appears in no apparent distress. uncomfortable, Behavior is calm, cooperative, sv appropriate for age. Pain: Complains of pain in teeth and neck. Neuro: Level of Consciousness is awake, alert, obeys commands, Gait is steady. Respiratory: Respiratory effort is even, unlabored. Historical: - Allergies: 14:52 No Known Allergies; sv - Immunization history:: Adult Immunizations unknown. - Social history:: Smoking status: unknown. Screenin:46 Abuse screen: Denies threats or abuse. Denies injuries from another. Nutritional ph screening: No deficits noted. Tuberculosis screening: No symptoms or risk factors identified. Fall Risk None identified. Assessment: 17:47 General: Appears in no apparent distress. Behavior is calm, cooperative, appropriate ph for age, Denies fever. Pain: Complains of pain in mouth. Neuro: Level of Consciousness is awake, alert, obeys commands, Oriented to person, place, time, situation. Cardiovascular: Capillary refill < 3 seconds in bilateral fingers. EENT: Reports pain in mouth. Derm: Skin is intact, is healthy with good turgor, Skin is pink, warm \T\ dry. Musculoskeletal: Circulation, motion, and sensation intact. Range of motion: intact in all extremities. Vital Signs: 14:52 BP 171 / 112; Pulse 90; Resp 18; Temp 99.0; Pulse Ox 99% ; Weight 108.86 kg; Height 6 sv ft. 0 in. (182.88 cm); 17:48 BP 169 / 99; Pulse 87; Resp 18; Temp 98.2; Pulse Ox 99% on R/A; ph 14:52 Body Mass Index 32.55 (108.86 kg, 182.88 cm) sv ED Course: 14:30 Patient arrived in ED. rg4 14:51 Arm band placed on. sv 14:52 Triage completed. sv 17:06 Katlyn Garcia RN is Primary Nurse. ph 17:10 Pura Thornton FNP-C is PHCP. snw 17:10 Elton Campoverde MD is Attending Physician. snw 17:10 PHCP role handed off by Pura Thornton FNP-C cp 17:10 Landon Rahman PA is PHCP. cp 17:48 Patient has correct armband on for positive identification. Bed in low position. Call ph light in reach. 17:48 No provider procedures requiring assistance completed. Patient did not have IV access ph during this emergency room visit. Administered Medications: No medications were administered Outcome: 17:28 Discharge ordered by . cp 17:48 Discharged to home ambulatory. ph 17:48 Condition: good 17:48 Discharge instructions given to patient, Instructed on discharge instructions, follow up and referral plans. no driving heavy equipment, Demonstrated understanding of instructions, follow-up care, medications, Prescriptions given X 3. 17:49 Patient left the ED. ph Signatures: Zulma Prieto RN RN Pura Thornton FNP-C FNP-Katlyn Overton RN RN Landon Rahman PA PA cp Garcia, Rubi rg4 Corrections: (The following items were deleted from the chart) 14:54 14:52 Pulse 90bpm; Resp 18bpm; Pulse Ox 99%; Temp 99.0F; sv sv
--- NOTE | 2020-02-24 17:29 | EDPHYS ---
Physician Documentation [facility] Name: Cele Lewis Age: 49 yrs Sex: Male : 1970 Arrival Date: 02/24/2020 Time: 14:30 Bed 8 Private MD: ED Physician Elton Campoverde HPI: 02/23 17:25 This 49 yrs old Black Male presents to ER via Ambulatory with complaints of Toothache. cp 17:25 The patient presents with pain. The problem is located in the upper back molars. Onset: cp The symptoms/episode began/occurred gradually, and became worse today. Duration: The symptoms are continuous, and are steadily getting worse. Associated signs and symptoms: Pertinent negatives: anorexia, dysphagia, fever, inability to eat. Severity of symptoms: in the emergency department the symptoms are unchanged, despite home interventions. Historical: - Allergies: 14:52 No Known Allergies; sv - Immunization history:: Adult Immunizations unknown. - Social history:: Smoking status: unknown. ROS: 17:26 Constitutional: Negative for body aches, chills, fever, poor PO intake. cp 17:26 ENT: Positive for dental pain, Negative for drainage from ear(s), ear pain, sore throat, difficulty swallowing, difficulty handling secretions. 17:26 Respiratory: Negative for cough, shortness of breath, wheezing. cp 17:26 Abdomen/GI: Negative for abdominal pain, nausea, vomiting, and diarrhea. 17:26 Neuro: Negative for altered mental status, headache. cp 17:26 All other systems are negative. Exam: 17:26 Constitutional: The patient appears in no acute distress, alert, awake, non-toxic, well cp developed, well nourished. 17:26 Head/Face: Normocephalic, atraumatic. cp 17:26 ENT: External ear(s): are unremarkable, Ear canal(s): are normal, clear, TM's: dullness, bilaterally, Mouth: Lips: moist, Oral mucosa: pink and intact, moist, Posterior pharynx: Airway: no evidence of obstruction, patent, swelling, is not appreciated, erythema, is not appreciated, exudate, is not appreciated, Dental exam: abscess, is not appreciated, dental caries, that is severe, diffusely, gum swelling, not appreciated, pain, that is moderate, diffusely, specifically in the upper right third molar (#1), upper right second molar (#2), upper left second molar (#15) and upper left third molar (#16), radiating pain to entire upper jaw, Voice: is normal. 17:26 Neck: ROM/movement: is normal, is supple, no meningismus, no nuchal rigidity, Lymph nodes: no appreciated lymphadenopathy. 17:26 Chest/axilla: Inspection: normal. 17:26 Cardiovascular: Rate: normal. 17:26 Respiratory: the patient does not display signs of respiratory distress, Respirations: normal. Vital Signs: 14:52 BP 171 / 112; Pulse 90; Resp 18; Temp 99.0; Pulse Ox 99% ; Weight 108.86 kg; Height 6 sv ft. 0 in. (182.88 cm); 17:48 BP 169 / 99; Pulse 87; Resp 18; Temp 98.2; Pulse Ox 99% on R/A; ph 14:52 Body Mass Index 32.55 (108.86 kg, 182.88 cm) sv MDM: 17:19 Patient medically screened. cp 17:28 Data reviewed: vital signs, nurses notes, and as a result, I will discharge patient. cp 17:28 Differential diagnosis: dental caries, gingivitis, dental abscess, sepsis. Counseling: cp I had a detailed discussion with the patient and/or guardian regarding: the historical points, exam findings, and any diagnostic results supporting the discharge/admit diagnosis, the need for outpatient follow up, for definitive care, a dentist, to return to the emergency department if symptoms worsen or persist or if there are any questions or concerns that arise at home. Administered Medications: No medications were administered Disposition: 17:30 Chart complete. cp 02/24 08:00 Co-signature as Attending Physician, Elton Campoverde MD I agree with the assessment and kdr plan of care. Disposition: 02/24/20 17:28 Discharged to Home. Impression: Other disorders of teeth and supporting structures - pain, Dental caries. - Condition is Stable. - Discharge Instructions: Dental Pain. - Prescriptions for Amoxicillin 875 mg Oral Tablet - take 1 tablet by ORAL route every 12 hours for 10 days; 20 tablet. Ibuprofen 800 mg Oral Tablet - take 1 tablet by ORAL route every 8 hours As needed take with food; 30 tablet. Tramadol 50 mg Oral Tablet - take 1 tablet by ORAL route every 8 hours as needed; 12 tablet. - Medication Reconciliation Form, Thank You Letter, Antibiotic Education, Prescription Opioid Use form. - Follow up: Private Physician; When: 1 - 2 days; Reason: Recheck today's complaints. - Problem is new. - Symptoms are unchanged. Signatures: Zulma Prieto RN RN Elton Campoverde MD MD [facility] Katlyn Garcia RN RN ph Landon Rahman PA PA cp Corrections: (The following items were deleted from the chart) 02/23 17:49 17:28 02/24/2020 17:28 Discharged to Home. Impression: Other disorders of teeth and ph supporting structures - pain; Dental caries. Condition is Stable. Forms are Medication Reconciliation Form, Thank You Letter, Antibiotic Education, Prescription Opioid Use. Follow up: Private Physician; When: 1 - 2 days; Reason: Recheck today's complaints. Problem is new. Symptoms are unchanged. cp
== END 2020-02-24 17:49 | disposition home or self-care (01) ==
DX: K02.9 Dental caries, unspecified (principal)
CPT/HCPCS: 99282

== ENCOUNTER 2020-03-23 04:15 | Emergency (ER) | payer SELFPAY ==
--- NOTE | 2020-03-23 04:43 | ER ---
Nurse's Notes [facility] Name: Cele Lewis Age: 49 yrs Sex: Male : 1970 Arrival Date: 03/23/2020 Time: 04:17 Bed 13 Private MD: Diagnosis: Dental caries Presentation: 03/23 04:27 Chief complaint: Patient states: Reports teeth pain on top and bottom, non specific, ea reports his whole mouth hurts. Coronavirus screen: At this time, the client does not indicate any symptoms associated with coronavirus-19. Ebola Screen: No symptoms or risks identified at this time. 04:27 Method Of Arrival: Ambulatory ea 04:29 Initial Sepsis Screen: Does the patient meet any 2 criteria? No. Patient's initial ea sepsis screen is negative. Does the patient have a suspected source of infection? No. Patient's initial sepsis screen is negative. Risk Assessment: Do you want to hurt yourself or someone else? Patient reports no desire to harm self or others. Onset of symptoms was March 23, 2020. 04:29 Acuity: RIO 5 ea Triage Assessment: 04:29 General: Appears in no apparent distress. Behavior is calm, cooperative, appropriate ea for age. Pain: Complains of pain in mouth. EENT: Reports pain in mouth. Historical: - Allergies: 04:29 No Known Drug Allergies; ea - Home Meds: 04:29 lisinopril 20 mg Oral tab 1 tab once daily [Active]; ea - PMHx: 04:29 Hypertension; ea - Immunization history:: Adult Immunizations up to date. - Social history:: Patient/guardian denies using alcohol, street drugs, The patient lives with family, Smoking status: Patient denies any tobacco usage or history of. - Family history:: not pertinent. Screenin:28 Abuse screen: Denies threats or abuse. Nutritional screening: No deficits noted. ea Tuberculosis screening: No symptoms or risk factors identified. Fall Risk None identified. Assessment: 04:30 General: Appears in no apparent distress. uncomfortable, Behavior is calm, cooperative, jb4 appropriate for age. Pain: Complains of pain in mouth Pain does not radiate. Pain currently is 10 out of 10 on a pain scale. Neuro: Level of Consciousness is awake, alert, obeys commands, Oriented to person, place, time, situation. Cardiovascular: Patient's skin is warm and dry. Respiratory: Airway is patent Respiratory effort is even, unlabored, Respiratory pattern is regular, symmetrical. GI: No signs and/or symptoms were reported involving the gastrointestinal system. : No signs and/or symptoms were reported regarding the genitourinary system. EENT: Reports pain in mouth. Derm: Skin is intact, Skin is dry, Skin is normal, Skin temperature is warm. Musculoskeletal: Circulation, motion, and sensation intact. Range of motion: intact in all extremities. 05:00 Reassessment: Patient appears in no apparent distress at this time. Patient and/or jb4 family updated on plan of care and expected duration. Pain level reassessed. Patient is alert, oriented x 3, equal unlabored respirations, skin warm/dry/pink. PT reports blood pressure is normally in the 200's systolically prior to taking home b/p medication. Provider notified. Okayed to go home and take home medication. Vital Signs: 04:27 Resp 18; Temp 98.7; Pulse Ox 99% ; Weight 104.33 kg; Height 6 ft. (182.88 cm); Pain ea 10/10; 04:45 BP 190 / 120; Pulse 63; Resp 17; Pulse Ox 100% on R/A; Pain 10/10; jb4 04:27 Body Mass Index 31.19 (104.33 kg, 182.88 cm) ea ED Course: 04:17 Patient arrived in ED. cl3 04:20 Niko Eng MD is Attending Physician. ma2 04:24 Izaiah Beatty, RN is Primary Nurse. jb4 04:28 Patient has correct armband on for positive identification. Bed in low position. Call ea light in reach. Side rails up X 1. 04:28 Arm band placed on right wrist. Patient placed in an exam room. ea 04:29 Triage completed. ea 05:00 No provider procedures requiring assistance completed. Patient did not have IV access jb4 during this emergency room visit. Administered Medications: 05:00 Drug: [place] 5 mg-325 mg 2 tabs Route: PO; jb4 05:00 Follow up: Response: Medication administered at discharge. jb4 Outcome: 04:42 Discharge ordered by . ma2 05:00 Discharged to home ambulatory. jb4 05:00 Condition: stable 05:00 Discharge instructions given to patient, Instructed on discharge instructions, follow up and referral plans. medication usage, Demonstrated understanding of instructions, follow-up care, medications, Prescriptions given X 2. 05:03 Patient left the ED. jb4 Signatures: Izaiah Beatty, RN RN jb4 Amanda Girard RN RN Niko Torre MD MD ma2 Pierre Martinez 3
--- NOTE | 2020-03-23 04:43 | EDPHYS ---
Physician Documentation [facility] Name: Cele Lewis Age: 49 yrs Sex: Male : 1970 Arrival Date: 03/23/2020 Time: 04:17 Bed 13 Private MD: ED Physician Niko Eng HPI: 03/23 04:41 This 49 yrs old Black Male presents to ER via Ambulatory with complaints of Toothache. ma2 04:41 The patient presents with pain. Onset: The symptoms/episode began/occurred gradually, 1 ma2 week(s) ago. Associated signs and symptoms: Pertinent negatives: inability to eat, pain. Severity of symptoms: At their worst the symptoms were moderate, in the emergency department the symptoms are unchanged. The patient has experienced similar episodes in the past. Historical: - Allergies: 04:29 No Known Drug Allergies; ea - Home Meds: :29 lisinopril 20 mg Oral tab 1 tab once daily [Active]; ea - PMHx: 04:29 Hypertension; ea - Immunization history:: Adult Immunizations up to date. - Social history:: Patient/guardian denies using alcohol, street drugs, The patient lives with family, Smoking status: Patient denies any tobacco usage or history of. - Family history:: not pertinent. ROS: 04:41 Constitutional: Negative for fever, chills, and weight loss. ma2 04:41 All other systems are negative. Exam: 04:41 Constitutional: This is a well developed, well nourished patient who is awake, alert, ma2 and in no acute distress. Head/Face: Normocephalic, atraumatic. Eyes: Pupils equal round and reactive to light, extra-ocular motions intact. Lids and lashes normal. Conjunctiva and sclera are non-icteric and not injected. Cornea within normal limits. Periorbital areas with no swelling, redness, or edema. Neck: Trachea midline, no thyromegaly or masses palpated, and no cervical lymphadenopathy. Supple, full range of motion without nuchal rigidity, or vertebral point tenderness. No Meningismus. Chest/axilla: Normal chest wall appearance and motion. Nontender with no deformity. No lesions are appreciated. Cardiovascular: Regular rate and rhythm with a normal S1 and S2. No gallops, murmurs, or rubs. Normal PMI, no JVD. No pulse deficits. 04:41 ENT: Dental exam: dental caries, that is moderate, diffusely. Vital Signs: 04:27 Resp 18; Temp 98.7; Pulse Ox 99% ; Weight 104.33 kg; Height 6 ft. (182.88 cm); Pain ea 10/10; 04:45 BP 190 / 120; Pulse 63; Resp 17; Pulse Ox 100% on R/A; Pain 10/10; jb4 04:27 Body Mass Index 31.19 (104.33 kg, 182.88 cm) ea MDM: 04:20 Patient medically screened. ma2 04:42 Differential diagnosis: dental caries, gingivitis, aphthous ulcers, gingivostomatitis. ma2 Data reviewed: vital signs, nurses notes. Counseling: I had a detailed discussion with the patient and/or guardian regarding: the historical points, exam findings, and any diagnostic results supporting the discharge/admit diagnosis, the presence of at least one elevated blood pressure reading (>120/80) during this emergency department visit, the need for outpatient follow up. Response to treatment: the patient's symptoms have markedly improved after treatment. Administered Medications: 05:00 Drug: [place] 5 mg-325 mg 2 tabs Route: PO; jb4 05:00 Follow up: Response: Medication administered at discharge. jb4 Disposition: 03/23/20 04:42 Discharged to Home. Impression: Dental caries. - Condition is Stable. - Discharge Instructions: Dental Pain. - Prescriptions for Augmentin 875- 125 mg Oral Tablet - take 1 tablet by ORAL route every 12 hours for 10 days; 20 tablet. Tramadol 50 mg Oral Tablet - take 1 tablet by ORAL route every 8 hours as needed; 12 tablet. - Medication Reconciliation Form, Thank You Letter, Antibiotic Education, Prescription Opioid Use form. - Follow up: Private Physician; When: Tomorrow; Reason: Continuance of care. Signatures: Izaiah Beatty RN RN jb4 Amanda Girard RN RN ea Alzahri, Mohammad, MD MD ma2 Corrections: (The following items were deleted from the chart) 05:03 04:42 03/23/2020 04:42 Discharged to Home. Impression: Dental caries. Condition is jb4 Stable. Forms are Medication Reconciliation Form, Thank You Letter, Antibiotic Education, Prescription Opioid Use. Follow up: Private Physician; When: Tomorrow; Reason: Continuance of care. ma2
[2020-03-23] MEDS ORDERED: HYDROCODONE/APAP 5/325 MG TAB ONE (05:04)
[2020-03-23 05:16] VITALS: TEMP 98.7
[2020-03-23 05:17] VITALS: BP 190/120; O2SAT 100
== END 2020-03-23 05:03 | disposition home or self-care (01) ==
LOC: ER 04:15
DX: K02.9 Dental caries, unspecified (principal); I10 Essential (primary) hypertension
CPT/HCPCS: 99283

== ENCOUNTER 2020-03-27 18:41 | Emergency (ER) | payer SELFPAY ==
--- NOTE | 2020-03-27 21:05 | ER ---
Nurse's Notes [facility] Name: Cele Lewis Age: 49 yrs Sex: Male : 1970 Arrival Date: 03/27/2020 Time: 18:41 Bed 15 Private MD: Diagnosis: Dental caries Presentation: 03/27 19:07 Chief complaint: Patient states: Jostin. ear pain, headache and whole teeth pain x 2 - 3 ca1 days. Denies fever. Coronavirus screen: Client denies travel out of the [place] in the last 14 days. headache, Client presents with at least one sign or symptom that may indicate coronavirus-19. Standard/surgical mask placed on the client. Provider contacted for isolation considerations. Ebola Screen: Patient negative for fever greater than or equal to 101.5 degrees Fahrenheit, and additional compatible Ebola Virus Disease symptoms Patient denies exposure to infectious person. Patient denies travel to an Ebola-affected area in the 21 days before illness onset. No symptoms or risks identified at this time. Initial Sepsis Screen: Does the patient meet any 2 criteria? No. Patient's initial sepsis screen is negative. Does the patient have a suspected source of infection? No. Patient's initial sepsis screen is negative. Risk Assessment: Do you want to hurt yourself or someone else? Patient reports no desire to harm self or others. Onset of symptoms was March 27, 2020. 19:07 Method Of Arrival: Ambulatory ca1 19:07 Acuity: RIO 3 ca1 Historical: - Allergies: 19:10 No Known Allergies; ca1 - Home Meds: 19:10 lisinopril 40 mg oral tab 1 tab once daily [Active]; ca1 - PMHx: 19:10 Hypertension; ca1 - PSHx: 19:10 None; ca1 - Immunization history:: Flu vaccine is up to date. - Social history:: Smoking status: Patient denies any tobacco usage or history of. Screenin:48 Abuse screen: Denies threats or abuse. Denies injuries from another. Nutritional zb screening: No deficits noted. Tuberculosis screening: No symptoms or risk factors identified. Fall Risk None identified. Assessment: 20:33 General: Appears in no apparent distress. uncomfortable, Behavior is calm, cooperative, zb appropriate for age. Pain: Complains of pain in left buccal mucosa, right buccal mucosa, upper right third molar, upper right second molar, upper right first molar, upper right second bicuspid, upper left first bicuspid, upper left second bicuspid, upper left first molar, upper left second molar and upper left third molar Pain currently is 8 out of 10 on a pain scale. Pain began Is continuous. Neuro: Level of Consciousness is awake, alert, obeys commands, Oriented to person, place, time, situation. Cardiovascular: Capillary refill < 3 seconds in bilateral fingers Patient's skin is warm and dry. Respiratory: Airway is patent Respiratory effort is Respiratory pattern is. GI: No signs and/or symptoms were reported involving the gastrointestinal system. : No signs and/or symptoms were reported regarding the genitourinary system. EENT: Ear canal clear on right ear and left ear Reports pain in right ear and left ear. Derm: Skin is intact, Skin is dry, Skin is normal, Skin temperature is warm. Derm: mild tenderness bilateral face. Musculoskeletal: Circulation, motion, and sensation intact. Capillary refill < 3 seconds, in bilateral fingers. Range of motion: intact in all extremities. 21:30 Reassessment: Patient appears in no apparent distress at this time. Patient and/or zb family updated on plan of care and expected duration. Pain level reassessed. Patient is alert, oriented x 3, equal unlabored respirations, skin warm/dry/pink. no changes at this time. pt stated that he take will take 2 or more Tylenol #3 at a time. notified ECP. 21:57 Reassessment: Patient appears in no apparent distress at this time. Patient and/or zb family updated on plan of care and expected duration. Pain level reassessed. Patient is alert, oriented x 3, equal unlabored respirations, skin warm/dry/pink. pt stated that his ride was here. ambulated outside. gait even and steady. Vital Signs: 19:07 BP 176 / 93; Pulse 79; Resp 16 S; Temp 97.5(TE); Pulse Ox 100% on R/A; Weight 107.05 kg ca1 (R); Height 6 ft. 0 in. (182.88 cm) (R); Pain 10/10; 21:57 BP 160 / 80; Pulse 80; Resp 16; Pulse Ox 99% on R/A; zb 19:07 Body Mass Index 32.01 (107.05 kg, 182.88 cm) ca1 ED Course: 18:41 Patient arrived in ED. ag5 19:10 Triage completed. ca1 19:10 Arm band placed on right wrist. ca1 20:24 Kaleb Walker NP is PHCP. pm1 20:24 Arnold Winslow MD is Attending Physician. pm1 20:25 Ev Amin, RN is Primary Nurse. zb 20:48 Patient has correct armband on for positive identification. Pulse ox on. NIBP on. Door zb closed. Noise minimized. 21:58 No provider procedures requiring assistance completed. Patient did not have IV access zb during this emergency room visit. Administered Medications: 21:00 Drug: [place] 10 mg-325 mg 1 tabs Route: PO; zb 21:00 Drug: Augmentin 875 mg Route: PO; zb Outcome: 21:04 Discharge ordered by . pm1 21:58 Discharged to home ambulatory. zb 21:58 Condition: stable 21:58 Discharge instructions given to patient, Instructed on discharge instructions, follow up and referral plans. medication usage, Demonstrated understanding of instructions, follow-up care, medications, Prescriptions given X 2. 21:58 Patient left the ED. zb Signatures: Kaleb Walker NP GRANTS ANALYST pm1 Natalia Aguilar RN RN ca1 Yadira Wright ag5 Ev Amin RN RN zb
--- NOTE | 2020-03-27 21:05 | EDPHYS ---
Physician Documentation [facility] Name: Cele Lewis Age: 49 yrs Sex: Male : 1970 Arrival Date: 03/27/2020 Time: 18:41 Bed 15 Private MD: ED Physician Arnold Winslow HPI: 03/27 21:39 This 49 yrs old Black Male presents to ER via Ambulatory with complaints of Ear Pain, pm1 Headache, Toothache. 21:39 The patient presents with pain. The problem is located in the upper left third molar pm1 and upper right third molar. Onset: The symptoms/episode began/occurred on and off for the past 6 months. Duration: The symptoms are intermittent. Modifying factors: The symptoms are alleviated by nothing. Associated signs and symptoms: Pertinent positives: bilateral ear pain, Pertinent negatives: dysphagia, fever, inability to eat. Severity of symptoms: in the emergency department the symptoms are actually worse. The patient has been recently seen at the [facility] Emergency Department, for similar complaints same complaint 4 days ago. Historical: - Allergies: 19:10 No Known Allergies; ca1 - Home Meds: 19:10 lisinopril 40 mg oral tab 1 tab once daily [Active]; ca1 - PMHx: 19:10 Hypertension; ca1 - PSHx: 19:10 None; ca1 - Immunization history:: Flu vaccine is up to date. - Social history:: Smoking status: Patient denies any tobacco usage or history of. ROS: 21:39 Constitutional: Negative for fever, chills, and weight loss. pm1 21:39 Neck: Negative for injury, pain, and swelling, Cardiovascular: Negative for chest pain, palpitations, and edema, Respiratory: Negative for shortness of breath, cough, wheezing, and pleuritic chest pain, Abdomen/GI: Negative for abdominal pain, nausea, vomiting, diarrhea, and constipation, MS/Extremity: Negative for injury and deformity, Skin: Negative for injury, rash, and discoloration. 21:39 ENT: Positive for dental pain, ear pain, Negative for sore throat, difficulty swallowing, difficulty handling secretions. 21:39 Neuro: Positive for headache, Negative for numbness, tingling, weakness. Exam: 21:39 Constitutional: This is a well developed, well nourished patient who is awake, alert, pm1 and in no acute distress. Head/Face: Normocephalic, atraumatic. 21:39 Neck: Trachea midline, no thyromegaly or masses palpated, and no cervical lymphadenopathy. Supple, full range of motion without nuchal rigidity, or vertebral point tenderness. No Meningismus. 21:39 Back: No spinal tenderness. No costovertebral tenderness. Full range of motion. Skin: Warm, dry with normal turgor. Normal color with no rashes, no lesions, and no evidence of cellulitis. MS/ Extremity: Pulses equal, no cyanosis. Neurovascular intact. Full, normal range of motion. 21:39 ENT: External ear(s): are unremarkable, Ear canal(s): are normal, TM's: are normal, Dental exam: dental caries, diffusely, specifically in the upper right third molar (#1) and upper left third molar (#16). 21:39 Cardiovascular: Exam negative for acute changes, Rate: normal, Rhythm: regular, Pulses: no pulse deficits are appreciated. 21:39 Respiratory: Exam negative for acute changes, respiratory distress, shortness of breath. 21:39 Neuro: Exam negative for acute changes, Orientation: is normal, Mentation: is normal, Motor: is normal, moves all fours, Gait: is steady, at a normal pace, without difficulty. Vital Signs: 19:07 BP 176 / 93; Pulse 79; Resp 16 S; Temp 97.5(TE); Pulse Ox 100% on R/A; Weight 107.05 kg ca1 (R); Height 6 ft. 0 in. (182.88 cm) (R); Pain 10/10; 21:57 BP 160 / 80; Pulse 80; Resp 16; Pulse Ox 99% on R/A; zb 19:07 Body Mass Index 32.01 (107.05 kg, 182.88 cm) ca1 MDM: 20:27 Patient medically screened. pm1 21:02 Data reviewed: vital signs. Counseling: I had a detailed discussion with the patient pm1 and/or guardian regarding: the historical points, exam findings, and any diagnostic results supporting the discharge/admit diagnosis, the need for outpatient follow up, for definitive care, a dentist, to return to the emergency department if symptoms worsen or persist or if there are any questions or concerns that arise at home. 21:39 ED course: MANAGER EVENT aware reviewed. Patient here in the ER 4 days ago and was given a pm1 prescription for tramadol for 4 days ago. Patient denies being here 4 days ago for the same complaint. Uncertain if he is taking Augmentin so I will prescribe it again and prescribe him nonnarcotic pain medications. Administered Medications: 21:00 Drug: [place]field 10 mg-325 mg 1 tabs Route: PO; zb 21:00 Drug: Augmentin 875 mg Route: PO; zb Disposition: 03/28 07:10 Co-signature as Attending Physician, Arnold Winslow MD. [email or web address] Disposition: 03/27/20 21:04 Discharged to Home. Impression: Dental caries. - Condition is Stable. - Discharge Instructions: Dental Pain. - Prescriptions for Diclofenac Sodium 75 mg Oral Tablet, Delayed Release (E.C.) - take 1 tablet by ORAL route 2 times per day As needed; 30 tablet. Augmentin 875- 125 mg Oral Tablet - take 1 tablet by ORAL route every 12 hours for 10 days; 20 tablet. - Medication Reconciliation Form, Thank You Letter, Antibiotic Education, Prescription Opioid Use form. - Follow up: Emergency Department; When: As needed; Reason: Worsening of condition. Follow up: Private Physician; When: 2 - 3 days; Reason: Recheck today's complaints, Continuance of care, Re-evaluation by your physician. - Problem is new. - Symptoms have improved. Signatures: Kaleb Walker, SWITCHMAN SUPERVISOR SWITCHMAN SUPERVISOR pm1 Natalia Aguilar RN RN [facility] Arnold Winslow MD MD [facility] Ev Amin RN RN zb Corrections: (The following items were deleted from the chart) 03/27 21:58 21:04 03/27/2020 21:04 Discharged to Home. Impression: Dental caries. Condition is zb Stable. Forms are Medication Reconciliation Form, Thank You Letter, Antibiotic Education, Prescription Opioid Use. Follow up: Emergency Department; When: As needed; Reason: Worsening of condition. Follow up: Private Physician; When: 2 - 3 days; Reason: Recheck today's complaints, Continuance of care, Re-evaluation by your physician. Problem is new. Symptoms have improved. pm1
[2020-03-27] MEDS ORDERED: AMOX/K CLAV 875 MG TAB ONE (21:09)
[2020-03-27] MEDS ORDERED: HYDROCODONE/APAP 10/325 TAB ONE (21:09)
[2020-03-27 22:04] VITALS: TEMP 97.5
[2020-03-27 22:05] VITALS: BP 160/80; O2SAT 99
== END 2020-03-27 21:58 | disposition home or self-care (01) ==
LOC: ER 18:41
DX: K02.9 Dental caries, unspecified (principal); I10 Essential (primary) hypertension
CPT/HCPCS: 99283

== ENCOUNTER 2020-07-17 09:12 | Emergency (ER) | payer SELFPAY ==
[2020-07-17 10:34] LABS: Absolute Lymphocytes (CBC) 1.2 K/uL (0.7-4.9); Basophils % 0.2 % (0-1.3); Hematocrit 42.6 % (39.6-49.0); Lymphocytes % 29.2 % (15.3-44.8); MPV 9.8 fL (7.6-11.3); RBC Red Blood Cell Count 5.04 M/uL (4.33-5.43)
[2020-07-17] MEDS ORDERED: METOCLOPRAMIDE 10 MG/2mL INJ ONE (10:47)
[2020-07-17] MEDS ORDERED: DIPHENHYDRAMINE 12.5MG/5ML LIQ ONE (10:47)
[2020-07-17] MEDS ORDERED: NA CHLORIDE 0.9% 0 ML ONE (10:48)
[2020-07-17] MEDS ORDERED: DIPHENHYDRAMINE 50 MG/ML VIAL ONE (10:48)
--- NOTE | 2020-07-17 10:49 | RAD REPORT ---
EXAM DESCRIPTION: CT - Head Brain Wo Cont - 07/17/2020 10:41 am CLINICAL HISTORY: HEADACHE COMPARISON: Head Brain Wo Cont dated 01/04/2019 TECHNIQUE: Axial 5 mm thick images of the head were obtained without IV contrast. All CT scans are performed using dose optimization technique as appropriate and may include automated exposure control or mA/KV adjustment according to patient size. FINDINGS: No intracranial hemorrhage, mass, edema or shift of mid-line structures. No acute infarcti on changes seen. No abnormal extra-axial fluid collections. Ventricles are normal. Mastoid air cells and visualized portions of the paranasal sinuses are clear. No acute bony findings. IMPRESSION: Negative non-contrast CT head examination for acute finding. No significant change from January 2019.
[2020-07-17] MEDS ORDERED: NA CHLORIDE 0.9% 500 ML ONE (10:50)
[2020-07-17 10:52] LABS: ALT/SGPT 27 U/L (12-78); AST/SGOT 26 U/L (15-37); Albumin 3.5 g/dL (3.4-5.0); Alkaline Phosphatase 68 U/L (45-117); BUN Blood Urea Nitrogen 10 mg/dL (7-18); Bicarbonate 30 mmol/L (21-32); Bilirubin Total 0.4 mg/dL (0.2-1.0); Glucose Level 111 mg/dL (74-106); Potassium 3.4 mmol/L (3.5-5.1); Sodium Level 143 mmol/L (136-145); Troponin (Emerg Dept Use Only) < 0.02 ng/mL (0.0-0.045)
--- NOTE | 2020-07-17 11:43 | EDPHYS ---
Physician Documentation [facility] Name: Cele Lewis Age: 49 yrs Sex: Male : 1970 Arrival Date: 07/17/2020 Time: 09:15 Bed 18 Private MD: ED Physician Niko Eng HPI: 07/17 09:50 This 49 yrs old Black Male presents to ER via Ambulatory with complaints of Ear Pain, jmm Eye Pain. 09:50 The patient complains of pain to the right eye, left eye, left ear and right ear. jmm Onset: The symptoms/episode began/occurred gradually, 1 day(s) ago. Associated signs and symptoms: Pertinent negatives: fever, neck stiffness, paresthesias, Photophobia vision changes, vision loss, vomiting. The patient has experienced similar episodes in the past, a few times. Historical: - Allergies: 09:32 No Known Allergies; aa5 - Home Meds: 09:32 lisinopril 40 mg Oral tab 1 tab once daily [Active]; aa5 - PMHx: 09:32 Hypertension; aa5 - PSHx: 09:32 None; aa5 - Immunization history:: Adult Immunizations unknown. - Social history:: Smoking status: Patient denies any tobacco usage or history of. ROS: 09:50 Constitutional: Negative for fever, chills, and weight loss, Cardiovascular: Negative jmm for chest pain, palpitations, and edema, Respiratory: Negative for shortness of breath, cough, wheezing, and pleuritic chest pain, Abdomen/GI: Negative for abdominal pain, nausea, vomiting, diarrhea, and constipation. 09:50 Neuro: Positive for headache. 09:50 All other systems are negative. Exam: 09:50 Constitutional: This is a well developed, well nourished patient who is awake, alert, jmm and in no acute distress. Head/Face: atraumatic. Eyes: EOMI, no conjunctival erythema appreciated ENT: Moist Mucus Membranes Neck: Trachea midline, Supple Chest/axilla: Normal chest wall appearance and motion. Cardiovascular: Regular rate and rhythm. No edema appreciated Respiratory: Normal respirations, no respiratory distress appreciated Abdomen/GI: Non distended, soft Back: Normal ROM Skin: General appearance color normal MS/ Extremity: Moves all extremities, no obvious deformities appreciated, no edema noted to the lower extremities Neuro: Awake and alert, normal gait Psych: Behavior is normal, Mood is normal, Patient is cooperative and pleasant Vital Signs: 09:32 BP 205 / 118; Pulse 87; Resp 20 S; Temp 98.8(O); Pulse Ox 100% on R/A; Weight 113.4 kg aa5 (R); Height 6 ft. 0 in. (182.88 cm) (R); Pain 8/10; 10:30 BP 167 / 93; Pulse 68; Resp 18; Pulse Ox 99% on R/A; kg 11:46 BP 176 / 92; Pulse 93; Resp 18; Pulse Ox 99% on R/A; kg 09:32 Body Mass Index 33.91 (113.40 kg, 182.88 cm) aa5 MDM: 09:50 Patient medically screened. [facility] 11:41 Data reviewed: vital signs, nurses notes. Counseling: I had a detailed discussion with alejandra the patient and/or guardian regarding: the historical points, exam findings, and any diagnostic results supporting the discharge/admit diagnosis, lab results, radiology results, the need for outpatient follow up, to return to the emergency department if symptoms worsen or persist or if there are any questions or concerns that arise at home. ED course: Pain rleieved in the ED. BP has decreased. Patient states he feels much better. I do not suspect sah or meningitis. Patient advised to follow up with neuro for further evaluation of headache. . 07/17 09:52 Order name: CBC with Diff; Complete Time: 10:38 [facility] 07/17 09:52 Order name: CMP; Complete Time: 10:55 [facility] 07/17 09:52 Order name: Troponin (emerg Dept Use Only); Complete Time: 10:55 [facility] 07/17 09:52 Order name: CT Head Brain wo Cont; Complete Time: 10:52 [facility] 07/17 09:52 Order name: Saline Lock; Complete Time: 10:35 [facility] Administered Medications: 10:34 Drug: NS 0.9% 500 ml Route: IV; Rate: bolus; Site: right forearm; kg 11:36 Follow up: Response: No adverse reaction; Marked relief of symptoms; IV Status: kg Completed infusion; IV Intake: 500ml 10:35 Drug: Reglan (metoCLOPramide) 10 mg Route: IVP; Site: right forearm; kg 11:36 Follow up: Response: No adverse reaction kg 10:35 Drug: diphenhydrAMINE 12.5 mg Route: IVP; Site: right forearm; kg 11:36 Follow up: Response: No adverse reaction kg Disposition: 07/17/20 11:42 Discharged to Home. Impression: Headache. - Condition is Stable. - Discharge Instructions: Cluster Headache. - Prescriptions for Ultracet 37.5- 325 mg Oral Tablet - take 1 tablet by ORAL route every 6 hours - for up to 5 days; do not exceed 8 tablets per day.; 20 tablet. - Medication Reconciliation Form, Thank You Letter, Antibiotic Education, Prescription Opioid Use form. - Follow up: Luis Marcum MD; When: 2 - 3 days; Reason: Recheck today's complaints, Continuance of care, Re-evaluation by your physician. Addendum: 07/18/2020 18:25 Co-signature as Attending Physician, Niko Eng MD. m a2 Signatures: Dispatcher [employer] EDMS Misael Melton PA PA jmm Calderon, Audri, RN RN aa5 Niko Eng MD MD ma2 Nayeli Conn kg Corrections: (The following items were deleted from the chart) 07/17 12:18 11:42 07/17/2020 11:42 Discharged to Home. Impression: Headache. Condition is Stable. kg Forms are Medication Reconciliation Form, Thank You Letter, Antibiotic Education, Prescription Opioid Use. Follow up: Luis Marcum; When: 2 - 3 days; Reason: Recheck today's complaints, Continuance of care, Re-evaluation by your physician. alejandra
--- NOTE | 2020-07-17 11:43 | ER ---
Nurse's Notes [facility] Name: Cele Lewis Age: 49 yrs Sex: Male : 1970 Arrival Date: 07/17/2020 Time: 09:15 Bed 18 Private MD: Diagnosis: Headache Presentation: 07/17 09:32 Chief complaint: Patient states: headache, aldo eye pain and aldo ear pain since aa5 . Denies cough, denies fever, denies nausea/vomiting. 09:32 Coronavirus screen: At this time, the client does not indicate any symptoms associated aa5 with coronavirus-19. Ebola Screen: Patient negative for fever greater than or equal to 101.5 degrees Fahrenheit, and additional compatible Ebola Virus Disease symptoms. Initial Sepsis Screen: Does the patient meet any 2 criteria? No. Patient's initial sepsis screen is negative. Does the patient have a suspected source of infection? No. Patient's initial sepsis screen is negative. Risk Assessment: Do you want to hurt yourself or someone else? Patient reports no desire to harm self or others. Onset of symptoms was July 2020. 09:32 Acuity: RIO 2 aa5 09:32 Method Of Arrival: Ambulatory aa5 Historical: - Allergies: 09:32 No Known Allergies; aa5 - Home Meds: 09:32 lisinopril 40 mg Oral tab 1 tab once daily [Active]; aa5 - PMHx: 09:32 Hypertension; aa5 - PSHx: 09:32 None; aa5 - Immunization history:: Adult Immunizations unknown. - Social history:: Smoking status: Patient denies any tobacco usage or history of. Screenin:43 Abuse screen: Denies threats or abuse. Nutritional screening: No deficits noted. kg Tuberculosis screening: No symptoms or risk factors identified. Fall Risk None identified. No fall in past 12 months (0 pts). No secondary diagnosis (0 pts). IV access (20 points). Ambulatory Aid- None/Bed Rest/Nurse Assist (0 pts). Gait- Normal/Bed Rest/Wheelchair (0 pts) Mental Status- Oriented to own ability (0 pts). Total Kaye Fall Scale indicates No Risk (0-24 pts). Assessment: 10:36 General: Appears in no apparent distress. Behavior is calm, cooperative, appropriate kg for age, quiet. Pain: Complains of pain in face and right ear Pain radiates to right ear Pain currently is 8 out of 10 on a pain scale. at worst was 8 out of 10 on a pain scale. level that patient reports is acceptable is 4 out of 10 on a pain scale. Quality of pain is described as sharp, shooting, stabbing, Pain began 2-3 days ago. Neuro: No deficits noted. Level of Consciousness is awake, alert, obeys commands, Oriented to person, place, time, situation. Cardiovascular: No deficits noted. Respiratory: No deficits noted. GI: No deficits noted. : No deficits noted. EENT: Reports pain in forehead, right eye, left eye and right ear. Derm: No deficits noted. Musculoskeletal: No deficits noted. Vital Signs: 09:32 BP 205 / 118; Pulse 87; Resp 20 S; Temp 98.8(O); Pulse Ox 100% on R/A; Weight 113.4 kg aa5 (R); Height 6 ft. 0 in. (182.88 cm) (R); Pain 8/10; 10:30 BP 167 / 93; Pulse 68; Resp 18; Pulse Ox 99% on R/A; kg 11:46 BP 176 / 92; Pulse 93; Resp 18; Pulse Ox 99% on R/A; kg 09:32 Body Mass Index 33.91 (113.40 kg, 182.88 cm) aa5 ED Course: 09:15 Patient arrived in ED. am2 09:32 Arm band placed on. aa5 09:33 Misael Melotn PA is PHCP. [facility] 09:33 Niko Eng MD is Attending Physician. [facility] 09:42 Triage completed. aa5 10:01 Nayeli Conn is Primary Nurse. kg 10:35 Troponin (emerg Dept Use Only) Sent. kg 10:35 CMP Sent. kg 10:35 CBC with Diff Sent. kg 10:35 Inserted saline lock: 20 gauge in right forearm, using aseptic technique. Blood kg collected. 10:40 CT Head Brain wo Cont In Process Unspecified. EDMS 10:44 Patient has correct armband on for positive identification. Bed in low position. Call kg light in reach. Side rails up X 1. 11:42 Luis Marcum MD is Referral Physician. jmm 11:59 No provider procedures requiring assistance completed. IV discontinued, intact, kg bleeding controlled, No redness/swelling at site. Pressure dressing applied. Administered Medications: 10:34 Drug: NS 0.9% 500 ml Route: IV; Rate: bolus; Site: right forearm; kg 11:36 Follow up: Response: No adverse reaction; Marked relief of symptoms; IV Status: kg Completed infusion; IV Intake: 500ml 10:35 Drug: Reglan (metoCLOPramide) 10 mg Route: IVP; Site: right forearm; kg 11:36 Follow up: Response: No adverse reaction kg 10:35 Drug: diphenhydrAMINE 12.5 mg Route: IVP; Site: right forearm; kg 11:36 Follow up: Response: No adverse reaction kg Intake: 11:36 IV: 500ml; Total: 500ml. kg Outcome: 11:42 Discharge ordered by MD. alejanrda 12:00 Discharged to home ambulatory. kg 12:00 Condition: improved 12:00 Discharge instructions given to patient, Instructed on discharge instructions, follow up and referral plans. Demonstrated understanding of instructions, follow-up care, medications, Prescriptions given X 1. 12:18 Patient left the ED. kg Signatures: Dispatcher [employer] EDMS Misael Melton PA PA jmm Calderon, Audri, RN RN aa5 Freya Amos am2 Nayeli Conn kg Corrections: (The following items were deleted from the chart) 09:45 09:32 Chief complaint: Patient states: headache, aldo eye pain and aldo ear pain since . aa5
[2020-07-17 12:24] VITALS: TEMP 98.8
[2020-07-17 12:26] VITALS: O2SAT 99
[2020-07-17 12:28] VITALS: BP 176/92
== END 2020-07-17 12:18 | disposition home or self-care (01) ==
LOC: ER 09:12
DX: R51.9 Headache, unspecified (principal); I10 Essential (primary) hypertension
CPT/HCPCS: 36415; 70450; 80053; 84484; 85025; 96361; 96374; 96375; 99284; J1200; J2765; J7030; J7040; Q0163

== ENCOUNTER 2020-08-09 00:32 | Emergency (ER) | payer SELFPAY ==
--- NOTE | 2020-08-09 01:15 | EDPHYS ---
Physician Documentation [facility] Name: Cele Lewis Age: 49 yrs Sex: Male : 1970 Arrival Date: 08/09/2020 Time: 00:44 Bed 17 Private MD: MARGIE Physician Landon Smith HPI: 08/09 01:07 This 49 yrs old Black Male presents to ER via Ambulatory with complaints of Toothache. carl 01:07 The patient presents with broken tooth/teeth, pain, swelling. The problem is located in [facility] the left buccal mucosa, upper left second molar and upper left third molar. Onset: The symptoms/episode began/occurred 3 day(s) ago. Duration: The symptoms are continuous, and are steadily getting worse. Associated signs and symptoms: The patient has no apparent associated signs or symptoms. The patient has experienced similar episodes in the past, several times. Historical: - Allergies: 00:53 No Known Allergies; ss 00:55 Ibuprofen; ea - Home Meds: 00:53 lisinopril 10 mg Oral tab 1 tab once daily [Active]; ss 00:55 lisinopril 40 mg Oral tab 1 tab once daily [Active]; ea - PMHx: 00:53 Hypertension; ss 00:55 Hypertension; ea - PSHx: 00:53 None; ss 00:55 None; ea - Immunization history:: Adult Immunizations up to date, Adult Immunizations up to date. - Social history:: Smoking status: Patient reports use of chewing tobacco. Smoking status: Patient reports use of chewing tobacco. - Family history:: not pertinent. ROS: 01:07 Constitutional: Negative for fever, chills, and weight loss, Eyes: Negative for injury, carl pain, redness, and discharge, Neck: Negative for injury, pain, and swelling, Cardiovascular: Negative for chest pain, palpitations, and edema, Respiratory: Negative for shortness of breath, cough, wheezing, and pleuritic chest pain, Abdomen/GI: Negative for abdominal pain, nausea, vomiting, diarrhea, and constipation, Back: Negative for injury and pain, : Negative for injury, bleeding, discharge, and swelling, MS/Extremity: Negative for injury and deformity, Skin: Negative for injury, rash, and discoloration, Neuro: Negative for headache, weakness, numbness, tingling, and seizure, Psych: Negative for depression, anxiety, suicide ideation, homicidal ideation, and hallucinations, Allergy/Immunology: Negative for hives, rash, and allergies, Endocrine: Negative for neck swelling, polydipsia, polyuria, polyphagia, and marked weight changes, Hematologic/Lymphatic: Negative for swollen nodes, abnormal bleeding, and unusual bruising. : ENT: Positive for Gum pain Exam: : Constitutional: This is a well developed, well nourished patient who is awake, alert, carl and in no acute distress. Head/Face: Normocephalic, atraumatic. Eyes: Pupils equal round and reactive to light, extra-ocular motions intact. Lids and lashes normal. Conjunctiva and sclera are non-icteric and not injected. Cornea within normal limits. Periorbital areas with no swelling, redness, or edema. Neck: Trachea midline, no thyromegaly or masses palpated, and no cervical lymphadenopathy. Supple, full range of motion without nuchal rigidity, or vertebral point tenderness. No Meningismus. Chest/axilla: Normal chest wall appearance and motion. Nontender with no deformity. No lesions are appreciated. Cardiovascular: Regular rate and rhythm with a normal S1 and S2. No gallops, murmurs, or rubs. Normal PMI, no JVD. No pulse deficits. Respiratory: Lungs have equal breath sounds bilaterally, clear to auscultation and percussion. No rales, rhonchi or wheezes noted. No increased work of breathing, no retractions or nasal flaring. Abdomen/GI: Soft, non-tender, with normal bowel sounds. No distension or tympany. No guarding or rebound. No evidence of tenderness throughout. Back: No spinal tenderness. No costovertebral tenderness. Full range of motion. Male : Normal genitalia with no discharge or lesions. Skin: Warm, dry with normal turgor. Normal color with no rashes, no lesions, and no evidence of cellulitis. MS/ Extremity: Pulses equal, no cyanosis. Neurovascular intact. Full, normal range of motion. Neuro: Awake and alert, GCS 15, oriented to person, place, time, and situation. Cranial nerves II-XII grossly intact. Motor strength 5/5 in all extremities. Sensory grossly intact. Cerebellar exam normal. Normal gait. Psych: Awake, alert, with orientation to person, place and time. Behavior, mood, and affect are within normal limits. 01:07 ENT: Mouth: Oral mucosa: normal, pink and intact, moist, Gums: reddened, swollen. Vital Signs: 00:52 Pulse 87; Resp 16; Temp 98.4(O); Pulse Ox 100% on R/A; Weight 104.33 kg; Height 6 ft. 0 ss in. (182.88 cm); Pain 10/10; 01:12 BP 198 / 97; ea 00:52 Body Mass Index 31.19 (104.33 kg, 182.88 cm) ss MDM: 00:48 Patient medically screened. [facility] 01:07 Differential diagnosis: dental caries, dental abscess. Data reviewed: vital signs, [facility] nurses notes. Data interpreted: monitoring specialist: not applicable for this patient encounter. rate is 87 beats/min, rhythm is regular, Pulse oximetry: on room air is 100 %. Counseling: I had a detailed discussion with the patient and/or guardian regarding: the historical points, exam findings, and any diagnostic results supporting the discharge/admit diagnosis, the need for outpatient follow up, for definitive care, a dentist. Administered Medications: 01:11 Drug: traMADol 100 mg Route: PO; ea 01:19 Follow up: Response: No adverse reaction ea 01:11 Drug: Amoxicillin 500 mg Route: PO; ea 01:20 Follow up: Response: No adverse reaction Disposition: 08/09/20 01:14 Discharged to Home. Impression: Dental caries, Dental caries, unspecified. - Condition is Stable. - Discharge Instructions: Dental Caries, Adult, Dental Pain, Dental Pain, [id number], Root Canal, Diet and Dental Disease, Dental Caries, [id number]. - Prescriptions for Amoxicillin 500 mg Oral Capsule - take 1 capsule by ORAL route every 8 hours for 10 days; 30 tablet. Tramadol 50 mg Oral Tablet - take 2 tablet by ORAL route every 8 hours as needed; 26 tablet. - Medication Reconciliation Form, Thank You Letter, Antibiotic Education, Prescription Opioid Use form. - Follow up: Private Physician; When: 2 - 3 days; Reason: Recheck today's complaints, Continuance of care, Re-evaluation by your physician. Follow up: Cesar Medina DDS; When: 2 - 3 days; Reason: Recheck today's complaints, Continuance of care, Re-evaluation by your physician. - Problem is new. - Symptoms have improved. Signatures: Landon Smith MD MD cha Smirch, Shelby RN Amanda Mckeon RN RN ea Corrections: (The following items were deleted from the chart) 01:19 01:14 08/09/2020 01:14 Discharged to Home. Impression: Dental caries; Dental caries, ea unspecified. Condition is Stable. Forms are Medication Reconciliation Form, Thank You Letter, Antibiotic Education, Prescription Opioid Use. Follow up: Private Physician; When: 2 - 3 days; Reason: Recheck today's complaints, Continuance of care, Re-evaluation by your physician. Follow up: Cesar Medina; When: 2 - 3 days; Reason: Recheck today's complaints, Continuance of care, Re-evaluation by your physician. Problem is new. Symptoms have improved. carl
--- NOTE | 2020-08-09 01:15 | ER ---
Nurse's Notes [facility] Name: Cele Lewis Age: 49 yrs Sex: Male : 1970 Arrival Date: 08/09/2020 Time: 00:44 Bed 17 Private MD: Diagnosis: Dental caries;Dental caries, unspecified Presentation: 08/09 00:52 Chief complaint: Patient states: Dental pain and facial swelling that began yesterday. ss Coronavirus screen: Client denies travel out of the [place] in the last 14 days. Ebola Screen: Patient denies exposure to infectious person. Patient denies travel to an Ebola-affected area in the 21 days before illness onset. Initial Sepsis Screen: Does the patient meet any 2 criteria? No. Patient's initial sepsis screen is negative. Does the patient have a suspected source of infection? No. Patient's initial sepsis screen is negative. Risk Assessment: Do you want to hurt yourself or someone else? Patient reports no desire to harm self or others. Onset of symptoms was August 08, 2020. 00:52 Method Of Arrival: Ambulatory ss 00:52 Acuity: RIO 4 ss Historical: - Allergies: 00:53 No Known Allergies; ss 00:55 Ibuprofen; ea - Home Meds: 00:53 lisinopril 10 mg Oral tab 1 tab once daily [Active]; ss 00:55 lisinopril 40 mg Oral tab 1 tab once daily [Active]; ea - PMHx: 00:53 Hypertension; ss 00:55 Hypertension; ea - PSHx: 00:53 None; ss 00:55 None; ea - Immunization history:: Adult Immunizations up to date, Adult Immunizations up to date. - Social history:: Smoking status: Patient reports use of chewing tobacco. Smoking status: Patient reports use of chewing tobacco. - Family history:: not pertinent. Screenin:52 Abuse screen: Denies threats or abuse. Nutritional screening: No deficits noted. ea Tuberculosis screening: No symptoms or risk factors identified. Fall Risk None identified. Assessment: 00:57 General: Appears uncomfortable, Behavior is appropriate for age. Pain: Complains of ea pain in left side of head. Neuro: Level of Consciousness is awake, alert, obeys commands, Oriented to person, place, time. Cardiovascular: Patient's skin is warm and dry. Respiratory: Airway is patent Respiratory effort is even, unlabored, Respiratory pattern is regular, symmetrical. EENT: swelling to left side of face . Derm: Skin is pink, warm \T\ dry. 01:18 Reassessment: Patient and/or family updated on plan of care and expected duration. Pain ea level reassessed. Patient is alert, oriented x 3, equal unlabored respirations, skin warm/dry/pink. Discharge instruction given to patient verbalized the understanding of instruction. Pt left ED ambulatory tolerating well. Vital Signs: 00:52 Pulse 87; Resp 16; Temp 98.4(O); Pulse Ox 100% on R/A; Weight 104.33 kg; Height 6 ft. 0 ss in. (182.88 cm); Pain 10/10; 01:12 BP 198 / 97; ea 00:52 Body Mass Index 31.19 (104.33 kg, 182.88 cm) ED Course: 00:44 Patient arrived in ED. bp1 00:48 Landon Smith MD is Attending Physician. carl 00:48 Amanda Girard, JOLIE is Primary Nurse. ea 00:52 Patient has correct armband on for positive identification. Bed in low position. Call ea light in reach. Side rails up X2. Pulse ox on. NIBP on. 00:52 Arm band placed on right wrist. Patient placed in an exam room, on a stretcher, on ea pulse oximetry. 00:53 Triage completed. ss 01:12 No provider procedures requiring assistance completed. Patient did not have IV access ea during this emergency room visit. 01:14 Cesar Medina DDS is Referral Physician. carl Administered Medications: 01:11 Drug: traMADol 100 mg Route: PO; ea 01:19 Follow up: Response: No adverse reaction ea 01:11 Drug: Amoxicillin 500 mg Route: PO; ea 01:20 Follow up: Response: No adverse reaction ea Outcome: 01:14 Discharge ordered by . carl 01:18 Discharged to home ambulatory, with family. ea 01:18 Condition: stable 01:18 Discharge instructions given to patient, Instructed on discharge instructions, follow up and referral plans. medication usage, Demonstrated understanding of instructions, follow-up care, medications, Prescriptions given X 2. 01:19 Patient left the ED. ea Signatures: Landon Smith MD MD cha Smirch, Shelby, RN RN Amanda Christensen RN RN ea Johanny, Elysia bp1
[2020-08-09 01:28] VITALS: BP 198/97; TEMP 98.4; O2SAT 100
[2020-08-09] MEDS ORDERED: AMOXICILLIN TRIHYDR 250 MG CAP ONE (01:29)
[2020-08-09] MEDS ORDERED: TRAMADOL HCL 50 MG TAB ONE (01:30)
== END 2020-08-09 01:19 | disposition home or self-care (01) ==
LOC: ER 00:32
DX: K02.9 Dental caries, unspecified (principal); I10 Essential (primary) hypertension; F17.220 Nicotine dependence, chewing tobacco, uncomplicated; Z88.6 Allergy status to analgesic agent
CPT/HCPCS: 99283

== ENCOUNTER 2020-09-11 19:57 | Emergency (ER) | payer SELFPAY ==
--- NOTE | 2020-09-11 20:37 | ER ---
Nurse's Notes [facility] Name: Cele Lewis Age: 50 yrs Sex: Male : 1970 Arrival Date: 09/11/2020 Time: 19:59 Bed 7 Private MD: Diagnosis: Dental pain;Dental caries, unspecified Presentation: 09/11 20:20 Chief complaint: Patient states: toothache all upper teeth since yesterday. Has a ca1 dentist appointment this coming Saturday. Coronavirus screen: Client denies travel out of the [place] in the last 14 days. Client indicates they have traveled out of the [place] in the last 14 days. At this time, unable to obtain information related to travel outside the [place] Ebola Screen: Patient negative for fever greater than or equal to 101.5 degrees Fahrenheit, and additional compatible Ebola Virus Disease symptoms Patient denies exposure to infectious person. Patient denies travel to an Ebola-affected area in the 21 days before illness onset. No symptoms or risks identified at this time. Initial Sepsis Screen: Does the patient meet any 2 criteria? No. Patient's initial sepsis screen is negative. Does the patient have a suspected source of infection? No. Patient's initial sepsis screen is negative. Risk Assessment: Do you want to hurt yourself or someone else? Patient reports no desire to harm self or others. Onset of symptoms was September 11, 2020. 20:20 Method Of Arrival: Ambulatory ca1 20:20 Acuity: RIO 3 ca1 Triage Assessment: 20:36 EENT: Reports pain in right zygomatic area. lp1 Historical: - Allergies: 20:21 Ibuprofen; ca1 - Home Meds: 20:21 lisinopril 40 mg Oral tab 1 tab once daily [Active]; lisinopril 10 mg Oral tab 1 tab ca1 once daily [Active]; - PMHx: 20:21 Hypertension; ca1 - PSHx: 20:21 None; ca1 - Immunization history:: Client reports having NOT received the Covid vaccine. Flu vaccine is up to date. - Social history:: Smoking status: Patient denies any tobacco usage or history of. Screenin:24 Abuse screen: Denies threats or abuse. Nutritional screening: No deficits noted. ea Tuberculosis screening: No symptoms or risk factors identified. Fall Risk None identified. Assessment: 20:34 General: Appears uncomfortable, Behavior is appropriate for age. Pain: Complains of lp1 pain in mouth Pain currently is 8 out of 10 on a pain scale. Neuro: No deficits noted. Cardiovascular: No deficits noted. Respiratory: No deficits noted. GI: No signs and/or symptoms were reported involving the gastrointestinal system. : No signs and/or symptoms were reported regarding the genitourinary system. EENT: Oral mucosa is moist. Poor dentition noted. Absence of teeth noted - upper right third molar (#1) and upper right second molar (#2) gums noted to be swollen. Derm: Skin is intact, Skin is dry, Skin is normal. Musculoskeletal: No deficits noted. Vital Signs: 20:20 BP 201 / 112; Pulse 91; Resp 16; Temp 98.8; Pulse Ox 99% on R/A; Weight 99.79 kg (R); ca1 Height 6 ft. 0 in. (182.88 cm); Pain 10/10; 20:20 Body Mass Index 29.84 (99.79 kg, 182.88 cm) ca1 ED Course: 19:59 Patient arrived in ED. es 20:21 Triage completed. ca1 20:21 Arm band placed on right wrist. ca1 20:23 Vane Sarmiento RN is Primary Nurse. lp1 20:24 Patient has correct armband on for positive identification. Bed in low position. Call ea light in reach. Side rails up X2. 20:27 Kaleb Walker NP is PHCP. pm1 20:27 Arnold Winslow MD is Attending Physician. pm1 20:36 No provider procedures requiring assistance completed. Patient did not have IV access lp1 during this emergency room visit. Administered Medications: 20:43 Drug: traMADol 50 mg Route: PO; lp1 20:44 Follow up: Response: Medication administered at discharge. lp1 Outcome: 20:36 Discharge ordered by . pm1 20:44 Discharged to home ambulatory. lp1 20:44 Condition: good 20:44 Discharge instructions given to patient, Instructed on discharge instructions, follow up and referral plans. medication usage, Demonstrated understanding of instructions, follow-up care, medications, Prescriptions given X 2. 20:44 Patient left the ED. lp1 Signatures: Raven Stephens Laura, RN RN lp1 Kaleb Walker NP [employer]N SHELLER OPERATOR pm1 Amanda Girard, RN RN ea AcNatalia chaney, RN RN ca1
--- NOTE | 2020-09-11 20:37 | EDPHYS ---
Physician Documentation [facility] Name: Cele Lewis Age: 50 yrs Sex: Male : 1970 Arrival Date: 09/11/2020 Time: 19:59 Bed 7 Private MD: ED Physician Arnold Winslow HPI: 09/11 20:43 This 50 yrs old Black Male presents to ER via Ambulatory with complaints of Toothache. pm1 20:43 The patient presents with pain. The problem is located in the upper right second molar pm1 and upper left second molar. Onset: The symptoms/episode began/occurred yesterday. Duration: The symptoms are chronic. Modifying factors: The symptoms are alleviated by nothing, the symptoms are aggravated by nothing. Associated signs and symptoms: Pertinent positives: pain, Pertinent negatives: fever, inability to eat, swelling. Severity of symptoms: in the emergency department the symptoms are unchanged. The patient has experienced similar episodes in the past, multiple times. The patient has not recently seen a physician, has an appointment scheduled, with dentist on Saturday. Historical: - Allergies: 20:21 Ibuprofen; ca1 - Home Meds: 20:21 lisinopril 40 mg Oral tab 1 tab once daily [Active]; lisinopril 10 mg Oral tab 1 tab ca1 once daily [Active]; - PMHx: 20:21 Hypertension; ca1 - PSHx: 20:21 None; ca1 - Immunization history:: Client reports having NOT received the Covid vaccine. Flu vaccine is up to date. - Social history:: Smoking status: Patient denies any tobacco usage or history of. ROS: 20:43 Constitutional: Negative for fever, chills, and weight loss. pm1 20:43 Cardiovascular: Negative for chest pain, palpitations, and edema, Respiratory: Negative for shortness of breath, cough, wheezing, and pleuritic chest pain. 20:43 Abdomen/GI: Negative for abdominal pain, nausea, vomiting, diarrhea, and constipation, Skin: Negative for injury, rash, and discoloration, Neuro: Negative for headache, weakness, numbness, tingling, and seizure. 20:43 ENT: Positive for dental pain. 20:43 All other systems are negative. Exam: 20:43 Constitutional: This is a well developed, well nourished patient who is awake, alert, pm1 and in no acute distress. Head/Face: Normocephalic, atraumatic. 20:43 Neck: Trachea midline, no thyromegaly or masses palpated, and no cervical lymphadenopathy. Supple, full range of motion without nuchal rigidity, or vertebral point tenderness. No Meningismus. 20:43 Skin: Warm, dry with normal turgor. Normal color with no rashes, no lesions, and no evidence of cellulitis. MS/ Extremity: Pulses equal, no cyanosis. Neurovascular intact. Full, normal range of motion. 20:43 ENT: Exam is negative for acute changes, Dental exam: dental caries, that is moderate, specifically in the upper right second molar (#2) and upper left second molar (#15). 20:43 Cardiovascular: Exam negative for acute changes, Rate: normal, Rhythm: regular, Pulses: no pulse deficits are appreciated. 20:43 Respiratory: Exam negative for acute changes, respiratory distress, shortness of breath. 20:43 Neuro: Exam negative for acute changes, Orientation: is normal, Mentation: is normal, Motor: is normal, moves all fours. Vital Signs: 20:20 BP 201 / 112; Pulse 91; Resp 16; Temp 98.8; Pulse Ox 99% on R/A; Weight 99.79 kg (R); ca1 Height 6 ft. 0 in. (182.88 cm); Pain 10/10; 20:20 Body Mass Index 29.84 (99.79 kg, 182.88 cm) ca1 MDM: 20:35 Patient medically screened. pm1 20:35 Data reviewed: vital signs. Data interpreted: Pulse oximetry: on room air is 99 %. pm1 Interpretation: normal. Counseling: I had a detailed discussion with the patient and/or guardian regarding: the historical points, exam findings, and any diagnostic results supporting the discharge/admit diagnosis, the need for outpatient follow up, for definitive care, a dentist, to return to the emergency department if symptoms worsen or persist or if there are any questions or concerns that arise at home. Administered Medications: 20:43 Drug: traMADol 50 mg Route: PO; lp1 20:44 Follow up: Response: Medication administered at discharge. lp1 Disposition: 09/12 06:08 Co-signature as Attending Physician, Arnold Winslow MD. [email or web address] Disposition Summary: 09/11/20 20:36 Discharge Ordered Location: Home pm1 Problem: new pm1 Symptoms: have improved pm1 Condition: Stable pm1 Diagnosis - Dental pain pm1 - Dental caries, unspecified pm1 Followup: pm1 - With: Emergency Department - When: As needed - Reason: Worsening of condition Followup: pm1 - With: Private Physician - When: 2 - 3 days - Reason: Recheck today's complaints, Continuance of care, Re-evaluation by your physician Discharge Instructions: - Discharge Summary Sheet pm1 - Dental Caries, Adult pm1 - Dental Pain pm1 Forms: - Medication Reconciliation Form pm1 - Thank You Letter pm1 - Antibiotic Education pm1 - Prescription Opioid Use pm1 Prescriptions: - Amoxicillin 500 mg Oral Capsule - take 1 capsule by ORAL route every 8 hours for 10 days; 30 tablet; Refills: 0, pm1 Product Selection Permitted - Tramadol 50 mg Oral Tablet - take 1 tablet by ORAL route every 8 hours as needed; 12 tablet; Refills: 0, pm1 Product Selection Permitted Signatures: Vane Sarmiento RN RN 1 Kaleb Walker NP DRY TRANSFER WORKER pm1 Natalia Aguilar RN RN ca1 Arnold Winslow MD MD 7
[2020-09-11 20:49] VITALS: BP 201/112; TEMP 98.8; O2SAT 99
[2020-09-11] MEDS ORDERED: TRAMADOL HCL 50 MG TAB ONE (21:02)
== END 2020-09-11 20:44 | disposition home or self-care (01) ==
LOC: ER 19:57
DX: K02.9 Dental caries, unspecified (principal); I10 Essential (primary) hypertension; Z88.6 Allergy status to analgesic agent
CPT/HCPCS: 99283

== ENCOUNTER 2020-09-27 18:10 | Emergency (ER) | payer SELFPAY ==
[2020-09-27] MEDS ORDERED: HYDROCODONE/APAP 10/325 TAB ONE (21:19)
[2020-09-27] MEDS ORDERED: DIAZEPAM 5 MG TABLET ONE (21:20)
--- NOTE | 2020-09-27 21:45 | EDPHYS ---
Physician Documentation [facility] Name: Cele Lewis Age: 50 yrs Sex: Male : 1970 Arrival Date: 09/27/2020 Time: 18:26 Bed 11 Private MD: ED Physician Niko Eng Historical: - Allergies: 09/27 19:01 Ibuprofen; kg - Home Meds: 19:01 lisinopril 40 mg Oral tab 1 tab once daily [Active]; kg - PMHx: 19:01 Hypertension; kg - PSHx: 19:01 None; kg - Immunization history:: Adult Immunizations up to date, Client reports having NOT received the Covid vaccine. - Social history:: Smoking status: Patient denies any tobacco usage or history of. Vital Signs: 19:00 BP 187 / 110; Pulse 77; Resp 20; Temp 98.4(O); Pulse Ox 100% on R/A; Weight 108.86 kg kg (M); Height 6 ft. 0 in. (182.88 cm) (R); Pain 10/10; 20:30 BP 194 / 110; Pulse 80; Resp 18; Pulse Ox 99% ; vg1 21:14 BP 170 / 107; vg1 21:49 Pain 8/10; vg1 19:00 Body Mass Index 32.55 (108.86 kg, 182.88 cm) kg MDM: 20:38 Patient medically screened. [facility] 21:43 Data reviewed: vital signs, nurses notes. Counseling: I had a detailed discussion with alejandra the patient and/or guardian regarding: the historical points, exam findings, and any diagnostic results supporting the discharge/admit diagnosis, the need for outpatient follow up, to return to the emergency department if symptoms worsen or persist or if there are any questions or concerns that arise at home. ED course: NARX score = 430. . Administered Medications: 21:13 Drug: Valium (diazepam) 5 mg Route: PO; vg1 21:49 Follow up: Response: No adverse reaction vg1 21:13 Drug: [place] (HYDROcodone-acetaminophen) 10 mg-325 mg 1 tabs Route: PO; vg1 21:49 Follow up: Pain 8/10 Adult; Response: No adverse reaction; Pain is decreased vg1 Disposition Summary: 09/27/20 21:44 Discharge Ordered Location: Home [facility] Condition: Stable jmm Diagnosis - Strain of muscle and tendon of back wall of thorax jmm Followup: jmm - With: Private Physician - When: 2 - 3 days - Reason: Recheck today's complaints, Continuance of care, Re-evaluation by your physician Discharge Instructions: - Discharge Summary Sheet jmm - Thoracic Strain jmm Forms: - Medication Reconciliation Form jm - Thank You Letter [facility] - Antibiotic Education jmm - Prescription Opioid Use jm Prescriptions: - orphenadrine citrate 100 mg Oral Tablet Sustained Release - take 1 tablet by ORAL route 2 times per day As needed; 20 tablet; Refills: 0, jmm Product Selection Permitted Signatures: Misael Melton PA PA jmm Garcia, Victoria, RN RN vg1 Nayeli Conn RN RN kg
--- NOTE | 2020-09-27 21:45 | ER ---
Nurse's Notes [facility] Name: Cele Lewis Age: 50 yrs Sex: Male : 1970 Arrival Date: 09/27/2020 Time: 18:26 Bed 11 Private MD: Diagnosis: Strain of muscle and tendon of back wall of thorax Presentation: 09/27 19:00 Chief complaint: Patient states: Pain across shoulder blades and back after picking up kg 250 lbs patient yesterday. Coronavirus screen: Client denies travel out of the [place] in the last 14 days. At this time, unable to obtain information related to travel outside the [place] At this time, the client does not indicate any symptoms associated with coronavirus-19. Ebola Screen: Patient negative for fever greater than or equal to 101.5 degrees Fahrenheit, and additional compatible Ebola Virus Disease symptoms Patient denies exposure to infectious person. Patient denies travel to an Ebola-affected area in the 21 days before illness onset. Initial Sepsis Screen: Does the patient meet any 2 criteria? No. Patient's initial sepsis screen is negative. Does the patient have a suspected source of infection? No. Patient's initial sepsis screen is negative. Risk Assessment: Do you want to hurt yourself or someone else? Patient reports no desire to harm self or others. Onset of symptoms was September 26, 2020. 19:00 Method Of Arrival: Ambulatory kg 19:00 Acuity: RIO 4 kg Triage Assessment: 19:01 General: Appears in no apparent distress. Behavior is calm, cooperative, appropriate kg for age, quiet. Pain: Denies pain. Pain: Complains of pain in posterior cervical area, left trapezius, right trapezius, left scapular area, right scapular area and thoracic area Pain currently is 10 out of 10 on a pain scale. at worst was 10 out of 10 on a pain scale. level that patient reports is acceptable is 4 out of 10 on a pain scale. Quality of pain is described as throbbing, Pain began 1 day ago. Musculoskeletal:. Musculoskeletal: Reports pain in left trapezius, right trapezius, left scapular area, right scapular area and thoracic area. Historical: - Allergies: 19: Ibuprofen; kg - Home Meds: 19: lisinopril 40 mg Oral tab 1 tab once daily [Active]; kg - PMHx: 19:01 Hypertension; kg - PSHx: 19:01 None; kg - Immunization history:: Adult Immunizations up to date, Client reports having NOT received the Covid vaccine. - Social history:: Smoking status: Patient denies any tobacco usage or history of. Screenin:04 Abuse screen: Denies threats or abuse. Denies injuries from another. Nutritional kg screening: No deficits noted. Tuberculosis screening: No symptoms or risk factors identified. Fall Risk None identified. No fall in past 12 months (0 pts). No secondary diagnosis (0 pts). No IV (0 pts). Ambulatory Aid- None/Bed Rest/Nurse Assist (0 pts). Gait- Normal/Bed Rest/Wheelchair (0 pts) Mental Status- Oriented to own ability (0 pts). Total Kaye Fall Scale indicates No Risk (0-24 pts). Assessment: 19:04 Neuro: Level of Consciousness is awake, alert, obeys commands, Oriented to person, kg place, time, situation, Appropriate for age. 20:30 General: Appears in no apparent distress. comfortable, Behavior is calm, cooperative. vg1 Pain: Complains of pain in left trapezius, right trapezius, left scapular area and right scapular area Pain currently is 10 out of 10 on a pain scale. Pain began 1 day ago. Neuro: Level of Consciousness is awake, alert, obeys commands, Oriented to person, place, time, situation. Cardiovascular: Patient's skin is warm and dry. Respiratory: Airway is patent Respiratory effort is even, unlabored. GI: No signs and/or symptoms were reported involving the gastrointestinal system. : No signs and/or symptoms were reported regarding the genitourinary system. EENT: No signs and/or symptoms were reported regarding the EENT system. Derm: Skin is intact, is healthy with good turgor. Musculoskeletal: Circulation, motion, and sensation intact. 21:49 Reassessment: Patient appears in no apparent distress at this time. No changes from vg1 previously documented assessment. Patient and/or family updated on plan of care and expected duration. Pain level reassessed. Patient is alert, oriented x 3, equal unlabored respirations, skin warm/dry/pink. Vital Signs: 19:00 BP 187 / 110; Pulse 77; Resp 20; Temp 98.4(O); Pulse Ox 100% on R/A; Weight 108.86 kg kg (M); Height 6 ft. 0 in. (182.88 cm) (R); Pain 10/10; 20:30 BP 194 / 110; Pulse 80; Resp 18; Pulse Ox 99% ; vg1 21:14 BP 170 / 107; vg1 21:49 Pain 8/10; vg1 19:00 Body Mass Index 32.55 (108.86 kg, 182.88 cm) kg ED Course: 18:26 Patient arrived in ED. am2 19:01 Triage completed. kg 19:04 Patient has correct armband on for positive identification. kg 20:27 Misael Melton PA is PHCP. [facility] 20:27 Niko Eng MD is Attending Physician. [facility] 20:28 Josi Nj, RN is Primary Nurse. vg1 20:47 Arm band placed on. vg1 20:47 No provider procedures requiring assistance completed. Patient did not have IV access vg1 during this emergency room visit. Administered Medications: 21:13 Drug: Valium (diazepam) 5 mg Route: PO; vg1 21:49 Follow up: Response: No adverse reaction vg1 21:13 Drug: [place] (HYDROcodone-acetaminophen) 10 mg-325 mg 1 tabs Route: PO; vg1 21:49 Follow up: Pain 8/10 Adult; Response: No adverse reaction; Pain is decreased vg1 Outcome: 21:44 Discharge ordered by MD. m 21:49 Discharged to home ambulatory. vg1 21:49 Condition: stable 21:49 Discharge instructions given to patient, Instructed on discharge instructions, follow up and referral plans. medication usage, Demonstrated understanding of instructions, follow-up care, medications, Prescriptions given X 1. 21:50 Patient left the ED. vg1 Signatures: Misael Melton PA PA Freya Thao am2 Josi Nj, RN RN vg1 Nayeli Conn RN RN kg
[2020-09-29 03:19] VITALS: TEMP 98.4
[2020-09-29 03:20] VITALS: O2SAT 99
[2020-09-29 03:22] VITALS: BP 170/107
== END 2020-09-27 21:50 | disposition home or self-care (01) ==
LOC: ER 18:10
DX: S29.012A Strain of muscle and tendon of back wall of thorax, initial encounter (principal); X58.XXXA Exposure to other specified factors, initial encounter; I10 Essential (primary) hypertension
CPT/HCPCS: 99283

== ENCOUNTER 2021-01-12 23:10 | Emergency (ER) | payer SELFPAY ==
--- NOTE | 2021-01-12 23:42 | ER ---
Nurse's Notes [facility] Name: Cele Lewis Age: 50 yrs Sex: Male : 1970 Arrival Date: 01/12/2021 Time: 23:13 Bed 13 Private MD: Diagnosis: Dental caries, unspecified;Dental root caries;Essential (primary) hypertension Presentation: 01/12 23:24 Chief complaint: Patient states: Dental pain. Coronavirus screen: Vaccine status: df1 Patient reports receiving the 2nd dose of the covid vaccine. Client denies travel out of the [place] in the last 14 days. At this time, the client does not indicate any symptoms associated with coronavirus-19. Ebola Screen: Patient negative for fever greater than or equal to 101.5 degrees Fahrenheit, and additional compatible Ebola Virus Disease symptoms Patient denies exposure to infectious person. Patient denies travel to an Ebola-affected area in the 21 days before illness onset. Initial Sepsis Screen: Does the patient meet any 2 criteria? No. Patient's initial sepsis screen is negative. Does the patient have a suspected source of infection? No. Patient's initial sepsis screen is negative. Risk Assessment: Do you want to hurt yourself or someone else? Patient reports no desire to harm self or others. Onset of symptoms was January 05, 2021. 23:24 Method Of Arrival: Ambulatory df1 23:24 Acuity: RIO 4 df1 23:28 Note Pt states due for 8 teeth to be extracted next week but unable to afford surgery. df1 Has not taken Lisinopril today. Triage Assessment: 23:25 General: Appears in no apparent distress. uncomfortable, Behavior is calm, cooperative. df1 Pain: Complains of pain in mouth. EENT: Reports pain in mouth. Neuro: No deficits noted. Cardiovascular: No deficits noted. Respiratory: No deficits noted. GI: No deficits noted. : No deficits noted. Derm: No deficits noted. Musculoskeletal: No deficits noted. Historical: - Allergies: 23:25 Ibuprofen; df1 - Home Meds: 23:25 lisinopril 40 mg Oral tab 1 tab once daily [Active]; df1 23:27 lisinopril 10 mg Oral tab 1 tab once daily [Active]; df1 - PMHx: 23:25 Hypertension; df1 - PSHx: 23:25 None; df1 - Immunization history:: Adult Immunizations not up to date. - Social history:: Smoking status: Patient denies any tobacco usage or history of. - Family history:: not pertinent. Screenin:27 Abuse screen: Denies threats or abuse. Nutritional screening: No deficits noted. df1 Tuberculosis screening: No symptoms or risk factors identified. Fall Risk None identified. Assessment: 23:30 General: Appears uncomfortable, obese, well groomed, Behavior is calm, cooperative. dc2 Pain: Complains of pain in upper left third molar (#16) and upper left second molar (#15) and upper left first molar (#14) and upper right first molar (#3) and upper right second molar (#2) and upper right third molar (#1) and face and right buccal mucosa and left buccal mucosa and mouth. 23:30 Neuro: No deficits noted. Level of Consciousness is awake, alert, obeys commands, dc2 Oriented to person, place, time, situation. Cardiovascular: Reports None since Pt states has high blood pressure since he was 17 and is always high, denies any associated symptoms. Respiratory: No deficits noted. Airway is patent Breath sounds are clear bilaterally. GI: No deficits noted. No signs and/or symptoms were reported involving the gastrointestinal system. : No signs and/or symptoms were reported regarding the genitourinary system. Derm: No deficits noted. No signs and/or symptoms reported regarding the dermatologic system. Musculoskeletal: No deficits noted. Vital Signs: 23:24 BP 202 / 117; Pulse 82; Resp 18; Temp 98.5(O); Pulse Ox 100% on R/A; Weight 104.33 kg; df1 Height 6 ft. 0 in. (182.88 cm); Pain 10/10; 23:50 BP 198 / 109; Pulse 77; Resp 18; Pulse Ox 100% ; Pain 10/10; dc2 23:24 Body Mass Index 31.19 (104.33 kg, 182.88 cm) df1 ED Course: 23:13 Patient arrived in ED. cf2 23:25 Triage completed. df1 23:25 Arm band placed on right wrist. df1 23:27 Bed in low position. Call light in reach. Side rails up X 1. df1 23:27 No provider procedures requiring assistance completed. df1 23:31 Landon Smith MD is Attending Physician. carl 23:40 Cesar Medina DDS is Referral Physician. carl 23:45 Patient did not have IV access during this emergency room visit. dc2 01/13 00:02 Kasia Gaytan, RN is Primary Nurse. dc2 Administered Medications: 01/12 23:40 Drug: traMADol 100 mg Route: PO; dc2 01/13 01:23 Follow up: Response: Medication administered at discharge. dc2 01/12 23:40 Drug: Amoxicillin 500 mg Route: PO; dc2 01/13 01:23 Follow up: Response: Medication administered at discharge. dc2 01/12 23:40 Drug: Norvasc (amlodipine) 5 mg Route: PO; dc2 01/13 01:23 Follow up: Response: Medication administered at discharge. dc2 Outcome: 01/12 23:41 Discharge ordered by . carl 23:50 Condition: stable dc2 23:50 Discharge instructions given to patient, Instructed on discharge instructions, follow up and referral plans. Demonstrated understanding of instructions, follow-up care, medications, Prescriptions given X 2. 23:50 Discharged to home ambulatory. dc2 01/13 00:03 Patient left the ED. dc2 Signatures: Landon Smith MD MD cha Frazier, Celesta 2 Melissa Calvert df1 Kasia Gaytan, RN RN dc2 Corrections: (The following items were deleted from the chart) 01:23 00:15 BP 198 / 109; Pulse 77bpm; Resp 18bpm; Pulse Ox 100%; Pain 10/10; dc2 dc2
--- NOTE | 2021-01-12 23:42 | EDPHYS ---
Physician Documentation [facility] Name: Cele Lewis Age: 50 yrs Sex: Male : 1970 Arrival Date: 01/12/2021 Time: 23:13 Bed 13 Private MD: ED Physician Landon Smith HPI: 01/12 23:36 This 50 yrs old Black Male presents to ER via Ambulatory with complaints of Toothache, carl Headache. 23:36 The patient presents with broken tooth/teeth, lost tooth/teeth, pain, swelling. The carl problem is located in the left buccal mucosa and right buccal mucosa. Onset: The symptoms/episode began/occurred 3 day(s) ago. Duration: The symptoms are continuous, and are steadily getting worse. Modifying factors: The symptoms are alleviated by prescription meds, the symptoms are aggravated by chewing, food. Associated signs and symptoms: The patient has no apparent associated signs or symptoms. The patient has not experienced similar symptoms in the past. Historical: - Allergies: 23:25 Ibuprofen; df1 - Home Meds: 23:25 lisinopril 40 mg Oral tab 1 tab once daily [Active]; df1 23:27 lisinopril 10 mg Oral tab 1 tab once daily [Active]; df1 - PMHx: 23:25 Hypertension; df1 - PSHx: 23:25 None; df1 - Immunization history:: Adult Immunizations not up to date. - Social history:: Smoking status: Patient denies any tobacco usage or history of. - Family history:: not pertinent. ROS: 23:36 Constitutional: Negative for fever, chills, and weight loss, Eyes: Negative for injury, carl pain, redness, and discharge, Neck: Negative for injury, pain, and swelling, Cardiovascular: Negative for chest pain, palpitations, and edema, Respiratory: Negative for shortness of breath, cough, wheezing, and pleuritic chest pain, Abdomen/GI: Negative for abdominal pain, nausea, vomiting, diarrhea, and constipation, Back: Negative for injury and pain, : Negative for injury, bleeding, discharge, and swelling, MS/Extremity: Negative for injury and deformity, Skin: Negative for injury, rash, and discoloration, Neuro: Negative for headache, weakness, numbness, tingling, and seizure, Psych: Negative for depression, anxiety, suicide ideation, homicidal ideation, and hallucinations, Allergy/Immunology: Negative for hives, rash, and allergies, Endocrine: Negative for neck swelling, polydipsia, polyuria, polyphagia, and marked weight changes, Hematologic/Lymphatic: Negative for swollen nodes, abnormal bleeding, and unusual bruising. 23:36 ENT: Positive for Gum pain Teeth pain Exam: 23:36 Constitutional: This is a well developed, well nourished patient who is awake, alert, carl and in no acute distress. Head/Face: Normocephalic, atraumatic. Eyes: Pupils equal round and reactive to light, extra-ocular motions intact. Lids and lashes normal. Conjunctiva and sclera are non-icteric and not injected. Cornea within normal limits. Periorbital areas with no swelling, redness, or edema. Neck: Trachea midline, no thyromegaly or masses palpated, and no cervical lymphadenopathy. Supple, full range of motion without nuchal rigidity, or vertebral point tenderness. No Meningismus. Chest/axilla: Normal chest wall appearance and motion. Nontender with no deformity. No lesions are appreciated. Cardiovascular: Regular rate and rhythm with a normal S1 and S2. No gallops, murmurs, or rubs. Normal PMI, no JVD. No pulse deficits. Respiratory: Lungs have equal breath sounds bilaterally, clear to auscultation and percussion. No rales, rhonchi or wheezes noted. No increased work of breathing, no retractions or nasal flaring. Abdomen/GI: Soft, non-tender, with normal bowel sounds. No distension or tympany. No guarding or rebound. No evidence of tenderness throughout. Back: No spinal tenderness. No costovertebral tenderness. Full range of motion. Male : Normal genitalia with no discharge or lesions. Skin: Warm, dry with normal turgor. Normal color with no rashes, no lesions, and no evidence of cellulitis. MS/ Extremity: Pulses equal, no cyanosis. Neurovascular intact. Full, normal range of motion. Neuro: Awake and alert, GCS 15, oriented to person, place, time, and situation. Cranial nerves II-XII grossly intact. Motor strength 5/5 in all extremities. Sensory grossly intact. Cerebellar exam normal. Normal gait. Psych: Awake, alert, with orientation to person, place and time. Behavior, mood, and affect are within normal limits. 23:36 ENT: Mouth: Gums: noted to have cellulitis, reddened, swollen, on the left buccal mucosa and right buccal mucosa, Dental exam: dental caries, that is moderate, fractured teeth are noted, diffusely, gum swelling, that is mild, specifically in the upper right third molar (#1), upper right second molar (#2), upper right first molar (#3), upper left first molar (#14), upper left second molar (#15) and upper left third molar (#16). Vital Signs: 23:24 BP 202 / 117; Pulse 82; Resp 18; Temp 98.5(O); Pulse Ox 100% on R/A; Weight 104.33 kg; df1 Height 6 ft. 0 in. (182.88 cm); Pain 10/10; 23:50 BP 198 / 109; Pulse 77; Resp 18; Pulse Ox 100% ; Pain 10/10; dc2 23:24 Body Mass Index 31.19 (104.33 kg, 182.88 cm) df1 MDM: 23:31 Patient medically screened. carl 23:39 Differential diagnosis: dental caries, gingivitis, dental abscess, pericoronitis, carl aphthous ulcers, gingivostomatitis. Data reviewed: vital signs, nurses notes. Data interpreted: nurse monitoring: rate is 82 beats/min, rhythm is regular, Pulse oximetry: on room air is 100 %. Counseling: I had a detailed discussion with the patient and/or guardian regarding: the historical points, exam findings, and any diagnostic results supporting the discharge/admit diagnosis, lab results, radiology results, the need for outpatient follow up, for definitive care, a dentist, an oral maxilofacial specialist. Administered Medications: 23:40 Drug: traMADol 100 mg Route: PO; co2 01/13 01:23 Follow up: Response: Medication administered at discharge. co2 01/12 23:40 Drug: Amoxicillin 500 mg Route: PO; co2 01/13 01:23 Follow up: Response: Medication administered at discharge. co2 01/12 23:40 Drug: Norvasc (amlodipine) 5 mg Route: PO; co2 01/13 01:23 Follow up: Response: Medication administered at discharge. co2 Disposition Summary: 01/12/21 23:41 Discharge Ordered Location: Home carl Problem: new carl Symptoms: have improved carl Condition: Stable carl Diagnosis - Dental caries, unspecified carl - Dental root caries carl - Essential (primary) hypertension carl Followup: carl - With: Private Physician - When: 2 - 3 days - Reason: Recheck today's complaints, Continuance of care, Re-evaluation by your physician Followup: carl - With: Cesar Medina DDS - When: 2 - 3 days - Reason: Recheck today's complaints, Re-evaluation by your physician Discharge Instructions: - Discharge Summary Sheet carl - Dental Caries, Adult carl - Dental Pain carl - Dental Pain, [id number] carl - Hypertension, Adult carl - Hypertension, Adult, [id number] carl - Diet and Dental Disease carl - Dental Caries, Adult, [id number] carl - How to Take Your Blood Pressure, [id number] carl - Managing Your Hypertension carl Forms: - Medication Reconciliation Form carl - Thank You Letter carl - Antibiotic Education carl - Prescription Opioid Use carl Prescriptions: - Amoxicillin 500 mg Oral Capsule - take 1 capsule by ORAL route every 8 hours for 10 days; 30 tablet; Refills: 0, [facility] Product Selection Permitted - Tramadol 50 mg Oral Tablet - take 1 tablet by ORAL route every 8 hours as needed; 24 tablet; Refills: 0, [facility] Product Selection Permitted Signatures: Landon Smith MD MD cha Furlich, Dawn df1 Kasia Gaytan RN RN dc2
[2021-01-12] MEDS ORDERED: AMOXICILLIN TRIHYDR 250 MG CAP ONE (23:50)
[2021-01-12] MEDS ORDERED: AMLODIPINE 5 MG TAB ONE (23:50)
[2021-01-12] MEDS ORDERED: TRAMADOL HCL 50 MG TAB ONE (23:52)
[2021-01-13 00:19] VITALS: BP 202/117; TEMP 98.5; O2SAT 100
== END 2021-01-13 00:03 | disposition home or self-care (01) ==
LOC: ER 23:10
DX: K02.9 Dental caries, unspecified (principal); K02.7 Dental root caries; I10 Essential (primary) hypertension
CPT/HCPCS: 99283

== ENCOUNTER 2021-01-27 10:28 | Emergency (ER) | payer SELFPAY ==
--- NOTE | 2021-01-27 11:39 | ER ---
Nurse's Notes [facility] Name: Cele Lewis Age: 50 yrs Sex: Male : 1970 Arrival Date: 01/27/2021 Time: 10:32 Bed 12 Private MD: Diagnosis: Disorder of teeth and supporting structures, unspecified Presentation: 01/27 10:36 Chief complaint: Patient states: bilateral dental pain x 3 days. Pt reports he has ss surgery coming up for extractions and is just trying to make it until his surgery. Pt reports he has not taken his Lisinopril today, so he knows his blood pressure will be high. Coronavirus screen: Client denies travel out of the [place] in the last 14 days. Ebola Screen: Patient denies exposure to infectious person. Patient denies travel to an Ebola-affected area in the 21 days before illness onset. Initial Sepsis Screen: Does the patient meet any 2 criteria? No. Patient's initial sepsis screen is negative. Does the patient have a suspected source of infection? No. Patient's initial sepsis screen is negative. Risk Assessment: Do you want to hurt yourself or someone else? Patient reports no desire to harm self or others. Onset of symptoms was January 24, 2021. 10:36 Method Of Arrival: Ambulatory ss 10:36 Acuity: RIO 5 ss Historical: - Allergies: 10:35 Ibuprofen; ss - Home Meds: 10:35 lisinopril 40 mg Oral tab 1 tab once daily [Active]; ss - PMHx: 10:35 Hypertension; ss - PSHx: 10:35 None; ss - Immunization history:: Client reports receiving the 2nd dose of the Covid vaccine. - Social history:: Smoking status: Patient denies any tobacco usage or history of. Screenin:19 Abuse screen: Denies threats or abuse. Denies injuries from another. Nutritional ss screening: No deficits noted. Tuberculosis screening: Never had TB. Fall Risk None identified. Assessment: 11:19 General: Appears uncomfortable, Behavior is calm, cooperative, Denies fever, feeling ss ill, fatigue, chills. Pain: Complains of pain in bilateral dental pain that radiates towards ears Pain currently is 10 out of 10 on a pain scale. Neuro: Level of Consciousness is awake, alert, obeys commands, Oriented to person, place, time, situation, Anode Worker are equal bilaterally Speech is normal, Facial symmetry appears normal. Cardiovascular: Capillary refill < 3 seconds is brisk in bilateral fingers. Respiratory: Trachea midline Respiratory effort is even, unlabored. GI: No signs and/or symptoms were reported involving the gastrointestinal system. EENT: Oral mucosa is moist. Derm: Skin is intact, Skin is dry, Skin is pink, warm \T\ dry. normal. Musculoskeletal: Range of motion: intact in all extremities, Swelling absent. Vital Signs: 10:35 BP 221 / 103; Pulse 88; Resp 16; Temp 97.6(TE); Pulse Ox 100% on R/A; Weight 108.86 kg; ss Height 6 ft. 0 in. (182.88 cm); Pain 10/10; 10:36 BP 198 / 107; ss 10:35 Body Mass Index 32.55 (108.86 kg, 182.88 cm) ED Course: 10:32 Patient arrived in ED. mr 10:35 Arm band placed on right wrist. 10:38 Triage completed. ss 11:11 Landon Rahman PA is PHCP. cp 11:11 Elton Campoverde MD is Attending Physician. cp 11:19 Radha Cordero RN is Primary Nurse. ss 11:19 Patient has correct armband on for positive identification. Bed in low position. Call ss light in reach. 11:52 No provider procedures requiring assistance completed. Patient did not have IV access ss during this emergency room visit. Administered Medications: 11:51 Drug: Clindamycin 600 mg Route: PO; 11:51 Follow up: Response: Medication administered at discharge. 11:51 Drug: Tylenol 1000 mg Route: PO; ss 11:51 Follow up: Response: Medication administered at discharge. ss 11:51 Drug: traMADol 50 mg Route: PO; ss 11:51 Follow up: Response: No adverse reaction; Medication administered at discharge. Outcome: 11:39 Discharge ordered by MD. cp 11:52 Discharged to home ambulatory. 11:52 Condition: good 11:52 Discharge instructions given to patient, Instructed on discharge instructions, follow up and referral plans. Demonstrated understanding of instructions, follow-up care, Prescriptions given X 2. 11:52 Patient left the ED. Signatures: Angela Thao mr Radha Cordero RN RN Landon Rahman PA PA cp Corrections: (The following items were deleted from the chart) 10:39 10:36 Acuity: RIO 3 ss ss
--- NOTE | 2021-01-27 11:40 | EDPHYS ---
Physician Documentation [facility] Name: Cele Lewis Age: 50 yrs Sex: Male : 1970 Arrival Date: 01/27/2021 Time: 10:32 Bed 12 Private MD: ED Physician Elton Campoverde HPI: 01/27 11:35 This 50 yrs old Black Male presents to ER via Ambulatory with complaints of Ear Pain, cp Toothache. 11:35 The patient presents with pain. cp 11:35 The problem is located in the upper tooth pain. cp 11:35 Duration: The symptoms are continuous. Associated signs and symptoms: Pertinent cp negatives: dysphagia, fever, inability to eat. Patient seen in this ED earlier this month, 01-13-2021, with similar complaints of dental pain. Prescribed Amoxicillin and tramadol for pain. Patient reports appointment with dentist next week for extraction. Historical: - Allergies: 10:35 Ibuprofen; ss - Home Meds: 10:35 lisinopril 40 mg Oral tab 1 tab once daily [Active]; ss - PMHx: 10:35 Hypertension; ss - PSHx: 10:35 None; ss - Immunization history:: Client reports receiving the 2nd dose of the Covid vaccine. - Social history:: Smoking status: Patient denies any tobacco usage or history of. ROS: 11:37 Constitutional: Negative for body aches, chills, fever, poor PO intake. cp 11:37 Eyes: Negative for injury, pain, redness, and discharge. cp 11:37 ENT: Positive for dental pain, ear pain, Negative for drainage from ear(s), sinus congestion, sinus pain, difficulty swallowing, difficulty handling secretions. 11:37 Respiratory: Negative for cough, shortness of breath, wheezing. 11:37 Abdomen/GI: Negative for vomiting, diarrhea, constipation. 11:37 Neuro: Negative for dizziness, headache, weakness. 11:37 All other systems are negative. Exam: 11:38 Constitutional: The patient appears in no acute distress, alert, awake, cp non-diaphoretic, non-toxic, well developed, well nourished. 11:38 Head/Face: Normocephalic, atraumatic. cp 11:38 Eyes: Periorbital structures: appear normal, Conjunctiva: normal, no exudate, no injection, Sclera: no appreciated abnormality, Lids and lashes: appear normal, bilaterally. 11:38 ENT: External ear(s): are unremarkable, Ear canal(s): are normal, clear, TM's: dullness, bilaterally, Nose: is normal, Mouth: Lips: moist, Oral mucosa: pink and intact, moist, Posterior pharynx: Airway: no evidence of obstruction, patent, Uvula: midline, swelling, is not appreciated, erythema, is not appreciated, exudate, is not appreciated, Dental exam: dental caries, that is severe, diffusely, gum swelling, that is mild, specifically in the bilateral molar area of upper jaw, missing teeth, diffusely, pain, that is moderate, specifically in the upper right third molar (#1), upper right second molar (#2), upper left second molar (#15) and upper left third molar (#16), Voice: is normal. 11:38 Neck: ROM/movement: is normal, is supple, no meningismus, no nuchal rigidity. 11:38 Chest/axilla: Inspection: normal. 11:38 Cardiovascular: Rate: normal. 11:38 Respiratory: the patient does not display signs of respiratory distress, Respirations: normal. 11:38 Neuro: Orientation: to person, place \T\ time. Mentation: is normal. Vital Signs: 10:35 BP 221 / 103; Pulse 88; Resp 16; Temp 97.6(TE); Pulse Ox 100% on R/A; Weight 108.86 kg; ss Height 6 ft. 0 in. (182.88 cm); Pain 10/10; 10:36 BP 198 / 107; ss 10:35 Body Mass Index 32.55 (108.86 kg, 182.88 cm) ss MDM: 11:37 Patient medically screened. cp 11:37 Differential diagnosis: dental caries, dental abscess, pericoronitis. cp 11:39 Data reviewed: vital signs, nurses notes. cp 11:39 Counseling: I had a detailed discussion with the patient and/or guardian regarding: the cp historical points, exam findings, and any diagnostic results supporting the discharge/admit diagnosis, the presence of at least one elevated blood pressure reading (>120/80) during this emergency department visit, the need for outpatient follow up, for definitive care, a dentist, to return to the emergency department if symptoms worsen or persist or if there are any questions or concerns that arise at home. Administered Medications: 11:51 Drug: Clindamycin 600 mg Route: PO; 11:51 Follow up: Response: Medication administered at discharge. ss 11:51 Drug: Tylenol 1000 mg Route: PO; ss 11:51 Follow up: Response: Medication administered at discharge. ss 11:51 Drug: traMADol 50 mg Route: PO; ss 11:51 Follow up: Response: No adverse reaction; Medication administered at discharge. Disposition: 17:21 Co-signature as Attending Physician, Elton Campoverde MD I agree with the assessment and kdr plan of care. Disposition Summary: 01/27/21 11:39 Discharge Ordered Location: Home cp Problem: an ongoing problem cp Symptoms: have improved cp Condition: Stable cp Diagnosis - Disorder of teeth and supporting structures, unspecified cp Followup: cp - With: Private Physician - When: 2 - 3 days - Reason: Recheck today's complaints Discharge Instructions: - Discharge Summary Sheet cp - Dental Pain cp Forms: - Medication Reconciliation Form cp - Thank You Letter cp - Antibiotic Education cp - Prescription Opioid Use cp Prescriptions: - Clindamycin HCl 300 mg Oral Capsule - take 1 capsule by ORAL route every 6 hours for 10 days; 40 capsule; Refills: 0, cp Product Selection Permitted - Tramadol 50 mg Oral Tablet - take 1 tablet by ORAL route every 8 hours as needed; 12 tablet; Refills: 0, cp Product Selection Permitted Signatures: Elton Campoverde MD MD [facility] Radha Cordero RN RN Landon Rahman PA PA cp Corrections: (The following items were deleted from the chart) 01/28 03:01 01/27 11:35 Patient seen in this ED earlier this month with similar complaints of cp dental pain. Prescribed Amoxicillin and tramadol for pain. Patient reports appointment with dentist next week for extraction. cp
[2021-01-27] MEDS ORDERED: ACETAMINOPHEN 500 MG TAB ONE (11:48)
[2021-01-27] MEDS ORDERED: TRAMADOL HCL 50 MG TAB ONE (11:48)
[2021-01-27 11:59] VITALS: TEMP 97.6; O2SAT 100
[2021-01-27 12:00] VITALS: BP 198/107
== END 2021-01-27 11:52 | disposition home or self-care (01) ==
LOC: ER 10:28
DX: K08.89 Other specified disorders of teeth and supporting structures (principal); I10 Essential (primary) hypertension; Z88.6 Allergy status to analgesic agent
CPT/HCPCS: 99283

== ENCOUNTER 2021-02-07 22:51 | Emergency (ER) | payer SELFPAY ==
[2021-02-08] MEDS ORDERED: HYDROCODONE/APAP 7.5/325 MG TAB ONE ×2 (02:19→02:45)
[2021-02-08] MEDS ORDERED: AMLODIPINE 5 MG TAB ONE (02:45)
--- NOTE | 2021-02-08 02:53 | ER ---
Nurse's Notes [facility] Name: Cele Lewis Age: 50 yrs Sex: Male : 1970 Arrival Date: 02/07/2021 Time: 22:53 Bed 11 Private MD: Diagnosis: Dental caries, unspecified Presentation: 02/07 22:59 Chief complaint: Patient states: tooth pain x 2 days. Coronavirus screen: Vaccine da3 status: Patient reports receiving the 1st dose of the Covid vaccine. Ebola Screen: No symptoms or risks identified at this time. Risk Assessment: Do you want to hurt yourself or someone else? Patient reports no desire to harm self or others. 22:59 Method Of Arrival: Ambulatory da3 22:59 Acuity: RIO 5 da3 Triage Assessment: 23:03 General: Appears uncomfortable, Behavior is calm, cooperative, appropriate for age. da3 - Immunization history:: Client reports receiving the 1st dose of the Covid vaccine. Assessment: 02/08 02:52 General: pt not seen by this RN pt not in room. bb Vital Signs: 12 22:59 BP 206 / 112; Pulse 73; Resp 20; Temp 98.1; Pulse Ox 100% on R/A; Weight 108.86 kg; da3 Height 6 ft. 0 in. (182.88 cm); 22:59 Body Mass Index 32.55 (108.86 kg, 182.88 cm) da3 ED Course: 22:53 Patient arrived in ED. bp1 23:02 Triage completed. da3 02/08 01:46 Kimberly Echevarria, JOLIE is Primary Nurse. bb 01:51 Arnold Winslow MD is Attending Physician. mh7 02:51 Paco Torres DDS is Referral Physician. 7 Administered Medications: 02:18 Not Given (wrong medicationn): Dorris (HYDROcodone-acetaminophen) 5 mg-325 mg 1 tabs PO mh7 once; RASS on ADMIN: Combtv4, Very Agttd3, Agttd2, Rstlss1, AlertClm0, Drwsy-1, Lt Sdtn-2, Mod Sdtn-3, Dp Sdtn-4, UnArsble-5 02:19 Drug: Dorris (HYDROcodone-acetaminophen) (7.5 mg-325 mg) 1 tabs {Note: RASS 0.} Route: bb PO; :52 Follow up: pt eloped bb 02:51 Not Given (Patient Eloped): amLODIPine 5 mg PO once bb Intake: Outcome: :52 Patient left the ED. bb Signatures: Kimberly Echevarria RN RN bb Elysia Orlando Maurice, MD MD mh7 Damian Woods RN RN da3
--- NOTE | 2021-02-08 02:53 | EDPHYS ---
Physician Documentation [facility] Name: Cele Lewis Age: 50 yrs Sex: Male : 1970 Arrival Date: 02/07/2021 Time: 22:53 Bed 11 Private MD: ED Physician Arnold Winslow HPI: 02/08 02:06 This 50 yrs old Black Male presents to ER via Ambulatory with complaints of Toothache, mh7 Eye Pain. 02:06 The patient presents with pain. The problem is located in the Bilateral upper teeth. mh7 Onset: The symptoms/episode began/occurred 2 day(s) ago. Duration: The symptoms are continuous, and are unchanged since they started. Modifying factors: The symptoms are alleviated by prescription meds, Tylenol #3, the symptoms are aggravated by air, cold fluids. Associated signs and symptoms: Pertinent negatives: anorexia, chills, dysphagia, fever, inability to eat, nausea, redness in area, swelling, vomiting. Severity of symptoms: At their worst the symptoms were moderate, yesterday, in the emergency department the symptoms are unchanged. The patient has experienced similar episodes in the past, chronically. The patient has been recently seen at the [facility] Emergency Department, a couple of weeks ago. - Immunization history:: Client reports receiving the 1st dose of the Covid vaccine. ROS: 02:06 Constitutional: Negative for fever, chills, and weight loss, Eyes: Negative for injury, mh7 pain, redness, and discharge, Neck: Negative for injury, pain, and swelling, Cardiovascular: Negative for chest pain, palpitations, and edema, Respiratory: Negative for shortness of breath, cough, wheezing, and pleuritic chest pain, Abdomen/GI: Negative for abdominal pain, nausea, vomiting, diarrhea, and constipation, Back: Negative for injury and pain, : Negative for injury, bleeding, discharge, and swelling, MS/Extremity: Negative for injury and deformity, Skin: Negative for injury, rash, and discoloration, Neuro: Negative for headache, weakness, numbness, tingling, and seizure, Psych: Negative for depression, anxiety, suicide ideation, homicidal ideation, and hallucinations, Allergy/Immunology: Negative for hives, rash, and allergies, Endocrine: Negative for neck swelling, polydipsia, polyuria, polyphagia, and marked weight changes, Hematologic/Lymphatic: Negative for swollen nodes, abnormal bleeding, and unusual bruising. Exam: 02:06 Constitutional: This is a well developed, well nourished patient who is awake, alert, mh7 and in no acute distress. Head/Face: Normocephalic, atraumatic. Eyes: Pupils equal round and reactive to light, extra-ocular motions intact. Lids and lashes normal. Conjunctiva and sclera are non-icteric and not injected. Cornea within normal limits. Periorbital areas with no swelling, redness, or edema. Neck: Trachea midline, no thyromegaly or masses palpated, and no cervical lymphadenopathy. Supple, full range of motion without nuchal rigidity, or vertebral point tenderness. No Meningismus. Chest/axilla: Normal chest wall appearance and motion. Nontender with no deformity. No lesions are appreciated. Cardiovascular: Regular rate and rhythm with a normal S1 and S2. No gallops, murmurs, or rubs. Normal PMI, no JVD. No pulse deficits. Respiratory: Lungs have equal breath sounds bilaterally, clear to auscultation and percussion. No rales, rhonchi or wheezes noted. No increased work of breathing, no retractions or nasal flaring. Abdomen/GI: Soft, non-tender, with normal bowel sounds. No distension or tympany. No guarding or rebound. No evidence of tenderness throughout. Back: No spinal tenderness. No costovertebral tenderness. Full range of motion. Skin: Warm, dry with normal turgor. Normal color with no rashes, no lesions, and no evidence of cellulitis. MS/ Extremity: Pulses equal, no cyanosis. Neurovascular intact. Full, normal range of motion. Neuro: Awake and alert, GCS 15, oriented to person, place, time, and situation. Cranial nerves II-XII grossly intact. Motor strength 5/5 in all extremities. Sensory grossly intact. Cerebellar exam normal. Normal gait. Psych: Awake, alert, with orientation to person, place and time. Behavior, mood, and affect are within normal limits. 02:06 ENT: External ear(s): are unremarkable, Nose: is normal, Mouth: is normal, Posterior mh7 pharynx: is normal, airway is patent, Dental exam: abscess, is not appreciated, dental caries, that is severe, diffusely, specifically in the upper right third molar (#1), upper right second molar (#2), upper right first molar (#3), upper left first molar (#14), upper left second molar (#15) and upper left third molar (#16), fractured teeth are noted, not appreciated, gum swelling, that is mild, diffusely, missing teeth, diffusely, Voice: is normal. Vital Signs: 02/07 22:59 BP 206 / 112; Pulse 73; Resp 20; Temp 98.1; Pulse Ox 100% on R/A; Weight 108.86 kg; da3 Height 6 ft. 0 in. (182.88 cm); 22:59 Body Mass Index 32.55 (108.86 kg, 182.88 cm) da3 MDM: 02/08 02:20 Differential diagnosis: dental caries, gingivitis, dental abscess, pericoronitis, mh7 aphthous ulcers, acute necrotizing ulcerative gingivitis, gingivostomatitis. Data reviewed: old medical records. Data interpreted: Pulse oximetry: on room air is 100 %. Interpretation: normal. Counseling: I had a detailed discussion with the patient and/or guardian regarding: the historical points, exam findings, and any diagnostic results supporting the discharge/admit diagnosis. ED course: Discussed with patient multiple visits for same complaint over the past year. Reviewed [facility] [place] [place] site patient with multiple prescriptions for tramadol and Tylenol 3 over the past year. Discussed with patient that receiving these prescriptions regularly could be physically harmful as well as addictive. Explained to patient that I would prescribe an alternative medication at time of discharge and that he needs to follow-up with a dental specialist for definitive treatment of his condition. Patient verbalized that he understood this information is presented.. 02:50 ED course: Informed by nursing staff that patient has eloped from the ED.. mh7 02:52 Patient medically screened. 7 Administered Medications: 02:18 Not Given (wrong medicationn): Seibert (HYDROcodone-acetaminophen) 5 mg-325 mg 1 tabs PO mh7 once; RASS on ADMIN: Combtv4, Very Agttd3, Agttd2, Rstlss1, AlertClm0, Drwsy-1, Lt Sdtn-2, Mod Sdtn-3, Dp Sdtn-4, UnArsble-5 02:19 Drug: Seibert (HYDROcodone-acetaminophen) (7.5 mg-325 mg) 1 tabs {Note: RASS 0.} Route: bb PO; 02:52 Follow up: pt eloped bb 02:51 Not Given (Patient Eloped): amLODIPine 5 mg PO once bb Disposition Summary: 02/08/21 02:52 Eloped Disposition: after being seen by provider [facility] Problem: chronic mh7 Symptoms: have improved mh Reason: unknown mh7 Condition: Stable mh7 Diagnosis - Dental caries, unspecified mh7 Followup: 7 - With: Private Physician - When: 1 - 2 days - Reason: Worsening of condition, Recheck today's complaints, Continuance of care, Re-evaluation by your physician Followup: 7 - With: Paco Torres DDS - When: 1 - 2 days - Reason: Worsening of condition, Recheck today's complaints Signatures: Kimberly Echevarria RN RN Arnold Lazo MD MD 7 Damian Woods RN RN da3
[2021-02-08 03:00] VITALS: BP 206/112; TEMP 98.1; O2SAT 100
== END 2021-02-08 02:52 | disposition left against medical advice (07) ==
LOC: ER 22:51
DX: K08.89 Other specified disorders of teeth and supporting structures (principal)
CPT/HCPCS: 99282

== ENCOUNTER 2021-05-09 19:54 | Emergency (ER) | payer SELFPAY ==
[2021-05-09] MEDS ORDERED: METOCLOPRAMIDE 10 MG/2mL INJ ONE (20:43)
[2021-05-09] MEDS ORDERED: NA CHLORIDE 0.9% 1,000 ML ONE (20:43)
[2021-05-09] MEDS ORDERED: ONDANSETRON 4 MG/2 ML VIAL ONE (20:43)
[2021-05-09] MEDS ORDERED: dexAMETHasone 10 MG/ML VIAL ONE (20:43)
[2021-05-09 20:52] LABS: Absolute Lymphocytes (CBC) 1.6 K/uL (0.7-4.9); Hematocrit 40.9 % (39.6-49.0); Lymphocytes % 28.4 % (15.3-44.8); MPV 9.3 fL (7.6-11.3); RBC Red Blood Cell Count 5.03 M/uL (4.33-5.43)
[2021-05-09 21:05] LABS: Protime INR 1.03
[2021-05-09 21:09] LABS: Potassium 3.4 mmol/L (3.5-5.1)
--- NOTE | 2021-05-09 21:30 | RAD REPORT ---
EXAM DESCRIPTION: CT - Head Brain Wo Cont - 05/09/2021 9:09 pm CLINICAL HISTORY: HEADACHE COMPARISON: Head Brain Wo Cont dated 07/17/2020 TECHNIQUE: Axial 5 mm thick images of the head were obtained without IV contrast. All CT scans are performed using dose optimization technique as appropriate and may include automated exposure control or mA/KV adjustment according to patient size. FINDINGS: No intracranial hemorrhage, mass, edema or shift of mid-line structures. No acute infarcti on changes seen. No abnormal extra-axial fluid collections. Ventricles are normal. Intracranial findi ngs similar to the July 2020 study. Mastoid air cells are clear. Patchy mucosal thickening changes are seen scattered in the paranasal si nuses. No air-fluid levels present. No acute bony findings. IMPRESSION: No acute intracranial finding identified. Intracranial findings are similar to compariso n. Patchy mucosal thickening in the paranasal sinuses. No air-fluid levels present.
[2021-05-09] MEDS ORDERED: hydroCHLOROthiazide 25 MG TAB ONE (21:47)
[2021-05-09] MEDS ORDERED: HYDRALAZINE HCL 20 MG/ML VIAL ONE ×2 (21:47→22:42)
--- NOTE | 2021-05-09 23:03 | EDPHYS ---
Physician Documentation [facility] Name: Cele Lewis Age: 50 yrs Sex: Male : 1970 Arrival Date: 05/09/2021 Time: 19:55 Bed 5 Private MD: ED Physician Elton Campoverde HPI: 05/09 20:40 This 50 yrs old Black Male presents to ER via Ambulatory with complaints of Headache. cp 20:40 The patient complains of pain to the left frontal area and left temporal area. The cp patient describes the headache as aching, constant. 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 Associated signs and symptoms: Pertinent negatives: altered mental status, dizziness, fever, neck stiffness, paresthesias, vomiting, weakness, chest pain. Severity of symptoms: in the emergency department the pain is unchanged, despite home interventions. Headache History: Denies prior headaches. Historical: - Allergies: 20:10 Ibuprofen; al4 - Home Meds: 20:10 lisinopril 10 mg Oral tab 1 tab twice daily [Active]; al4 - PMHx: 20:10 Hypertension; al4 - Immunization history:: Adult Immunizations up to date, Client reports receiving the 2nd dose of the Covid vaccine. - Social history:: Smoking status: Patient denies any tobacco usage or history of. ROS: 20:45 Neuro: Positive for headache, Negative for altered mental status, dizziness, loss of cp consciousness, numbness, syncope, weakness. 20:45 Eyes: Negative for injury, pain, redness, and discharge. cp 20:45 Constitutional: Negative for body aches, chills, fever, poor PO intake. 20:45 ENT: Negative for drainage from ear(s), ear pain, sore throat, difficulty swallowing, difficulty handling secretions. 20:45 Neck: Negative for pain with movement, pain at rest, stiffness. 20:45 Cardiovascular: Negative for chest pain, edema, palpitations. 20:45 Respiratory: Negative for cough, shortness of breath, wheezing. 20:45 Abdomen/GI: Negative for abdominal pain, vomiting, diarrhea, constipation. 20:45 All other systems are negative. Exam: 20:45 Constitutional: The patient appears in no acute distress, alert, awake, cp non-diaphoretic, non-toxic, well developed, well nourished. 20:45 Head/Face: Normocephalic, atraumatic. cp 20:45 Eyes: Periorbital structures: appear normal, Pupils: equal, round, and reactive to light and accomodation, Extraocular movements: intact throughout, Conjunctiva: normal, no exudate, no injection, Sclera: no appreciated abnormality, Lids and lashes: appear normal, bilaterally. 20:45 ENT: External ear(s): are unremarkable, Nose: is normal, Mouth: Lips: moist, Oral mucosa: moist, Posterior pharynx: Airway: no evidence of obstruction, patent. 20:45 Neck: C-spine: vertebral tenderness, is not appreciated, crepitus, is not appreciated, ROM/movement: is normal, is supple, without pain, no range of motions limitations. 20:45 Chest/axilla: Inspection: normal. 20:45 Cardiovascular: Rate: normal, Rhythm: regular, Edema: is not appreciated, JVD: is not appreciated. 20:45 Respiratory: the patient does not display signs of respiratory distress, Respirations: normal, no use of accessory muscles, no retractions, labored breathing, is not present, Breath sounds: are clear throughout, no decreased breath sounds, no stridor, no wheezing. 20:45 Abdomen/GI: Exam negative for discomfort, distension, guarding, Inspection: abdomen appears normal. 20:45 Neuro: Orientation: to person, place \T\ time. Mentation: is normal, Cerebellar function: is grossly normal, Motor: moves all fours, strength is normal, Sensation: is normal, Gait: is steady, at a normal pace, without difficulty. Vital Signs: 20:05 BP 192 / 116; Pulse 98; Resp 20; Temp 98.2; Pulse Ox 100% ; Weight 104.33 kg; Height 6 al4 ft. 0 in. (182.88 cm); Pain 10/10; 21:27 BP 183 / 114; Pulse 86; Resp 17; Pulse Ox 99% on R/A; kd3 22:14 BP 173 / 112; Pulse 89; Resp 18; Pulse Ox 100% on R/A; kd3 23:13 BP 179 / 109; Pulse 90; Resp 17; Pulse Ox 100% on R/A; sm5 20:05 Body Mass Index 31.19 (104.33 kg, 182.88 cm) al4 MDM: 20:25 Patient medically screened. cp 21:00 Differential diagnosis: intracerebral hemorrhage, migraine, subarachnoid bleed, cp subdural hematoma, tension headache. 23:00 Data reviewed: vital signs, nurses notes, lab test result(s), radiologic studies, CT cp scan. 23:00 Counseling: I had a detailed discussion with the patient and/or guardian regarding: the cp historical points, exam findings, and any diagnostic results supporting the discharge/admit diagnosis, the presence of at least one elevated blood pressure reading (>120/80) during this emergency department visit, lab results, radiology results, the need for outpatient follow up, for definitive care, a family practitioner, to return to the emergency department if symptoms worsen or persist or if there are any questions or concerns that arise at home. Response to treatment: VS noted. Blood pressure remains elevated with treatment. RENE improved with meds. Will discharge to home for continued monitoring with instructions to f/u with family physician for blood pressure control. 05/09 20:34 Order name: PT-INR cp 05/09 20:34 Order name: CBC with Diff; Complete Time: 21:32 cp 05/09 21:32 Interpretation: Normal except: MCV 81.3. cp 05/09 20:34 Order name: CT Head Brain wo Cont; Complete Time: 21:32 cp 05/09 20:34 Order name: BMP; Complete Time: 21:32 cp 05/09 21:32 Interpretation: Normal except: K 3.4; CRE 1.33; GFR 69. cp 05/09 20:35 Order name: Protime (+INR); Complete Time: 21:32 EDMS 05/09 20:34 Order name: IV; Complete Time: 20:52 cp Administered Medications: 20:51 Drug: Zofran (Ondansetron) 4 mg Route: IVP; Site: left forearm; kd3 20:51 Drug: Dexamethasone 10 mg Route: IVP; Site: left forearm; kd3 20:52 Drug: NS 0.9% 1000 ml Route: IV; Rate: 1 bolus; Site: left forearm; kd3 21:45 Follow up: IV Status: Completed infusion; IV Intake: 1000ml sm5 20:52 Drug: Reglan (metoCLOPramide) 10 mg Route: IVP; Site: left forearm; kd3 21:55 Drug: Hydrochlorothiazide 25 mg Route: PO; kd3 21:56 Drug: hydrALAZINE 10 mg Route: IVP; Site: left forearm; kd3 22:45 Drug: hydrALAZINE 10 mg Route: IVP; Site: left forearm; kd3 23:11 Drug: Lisinopril 20 mg Route: PO; sm5 23:14 Follow up: Response: Medication administered at discharge. 5 Disposition Summary: 05/09/21 23:02 Discharge Ordered Location: Home cp Problem: new cp Symptoms: have improved cp Condition: Stable cp Diagnosis - Headache cp - Hypertensive heart disease without heart failure cp Followup: cp - With: Private Physician - When: 2 - 3 days - Reason: reevaluation of blood pressure Discharge Instructions: - Discharge Summary Sheet cp - General Headache Without Cause cp - Hypertension, Adult cp - Managing Your Hypertension cp - Form - Blood Pressure Record Sheet cp - How to Take Your Blood Pressure cp Forms: - Medication Reconciliation Form cp - Thank You Letter cp - Antibiotic Education cp - Prescription Opioid Use cp Prescriptions: - lisinopril-hydrochlorothiazide 20-12.5 mg Oral tablet - take 2 tablet by ORAL route once daily; 60 tablet; Refills: 0, Product cp Selection Permitted - Fioricet 50-300-40 mg Oral capsule - take 1 capsule by ORAL route every 4 hours As needed as needed for headache; 20 cp capsule; Refills: 0, Product Selection Permitted Signatures: Dispatcher [employer] Landon Finley PA PA cp Kate Barajas RN RN kd3 Marko Villasenor Sarah, RN RN sm5
--- NOTE | 2021-05-09 23:03 | ER ---
Nurse's Notes [facility] Name: Cele Lewis Age: 50 yrs Sex: Male : 1970 Arrival Date: 05/09/2021 Time: 19:55 Bed 5 Private MD: Diagnosis: Headache;Hypertensive heart disease without heart failure Presentation: 05/09 20:05 Chief complaint: Patient states: bumped head on the counter on Saturday. pain has al4 continued to get worse. patient currently denies n/v/dizziness. Coronavirus screen: Vaccine status: Patient reports receiving the 2nd dose of the covid vaccine. [employer]. Ebola Screen: No symptoms or risks identified at this time. Initial Sepsis Screen: Does the patient meet any 2 criteria? HR > 90 bpm. No. Patient's initial sepsis screen is negative. Does the patient have a suspected source of infection? No. Patient's initial sepsis screen is negative. Risk Assessment: Do you want to hurt yourself or someone else? Patient reports no desire to harm self or others. Onset of symptoms was May 05, 2021. Care prior to arrival:. 20:05 Method Of Arrival: Ambulatory al4 20:05 Acuity: RIO 3 al4 Triage Assessment: 20:10 Headache History: Denies prior headaches. General: Appears in no apparent distress. al4 uncomfortable, Behavior is calm, cooperative. Pain: Pain currently is 10 out of 10 on a pain scale. Pain began saturday Also complains of no other associated symptoms. Neuro: Level of Consciousness is awake, alert, obeys commands, Oriented to person, place, time, situation. Cardiovascular: Capillary refill < 3 seconds Patient's skin is warm and dry. Respiratory: Airway is patent Respiratory effort is unlabored, Respiratory pattern is regular. Musculoskeletal: Range of motion: intact in all extremities. Historical: - Allergies: 20:10 Ibuprofen; al4 - Home Meds: 20:10 lisinopril 10 mg Oral tab 1 tab twice daily [Active]; al4 - PMHx: 20:10 Hypertension; al4 - Immunization history:: Adult Immunizations up to date, Client reports receiving the 2nd dose of the Covid vaccine. - Social history:: Smoking status: Patient denies any tobacco usage or history of. Screenin:53 Abuse screen: Denies threats or abuse. Denies injuries from another. Nutritional kd3 screening: No deficits noted. Tuberculosis screening: No symptoms or risk factors identified. Fall Risk IV access (20 points). Assessment: 20:53 Reassessment: Patient is alert, oriented x 3, equal unlabored respirations, skin kd3 warm/dry/pink. General: Appears in no apparent distress. Behavior is calm, cooperative, appropriate for age. Pain: Complains of pain in headache. Neuro: Level of Consciousness is awake, alert, obeys commands, Oriented to person, place, time, situation, Reports headache. Vital Signs: 20:05 BP 192 / 116; Pulse 98; Resp 20; Temp 98.2; Pulse Ox 100% ; Weight 104.33 kg; Height 6 al4 ft. 0 in. (182.88 cm); Pain 10/10; 21:27 BP 183 / 114; Pulse 86; Resp 17; Pulse Ox 99% on R/A; kd3 22:14 BP 173 / 112; Pulse 89; Resp 18; Pulse Ox 100% on R/A; kd3 23:13 BP 179 / 109; Pulse 90; Resp 17; Pulse Ox 100% on R/A; sm5 20:05 Body Mass Index 31.19 (104.33 kg, 182.88 cm) al4 ED Course: 19:55 Patient arrived in ED. kc5 20:10 Triage completed. al4 20:13 Landon Rahman PA is PHCP. cp 20:13 Elton Campoverde MD is Attending Physician. cp 20:15 Milagro Govea, JOLIE is Primary Nurse. sm5 20:52 PT-INR Sent. kd3 20:52 CBC with Diff Sent. kd3 20:52 BMP Sent. kd3 20:52 Protime (+INR) Sent. kd3 20:52 Inserted saline lock: 20 gauge in left forearm, using aseptic technique. kd3 20:53 Arm band placed on right wrist. kd3 21:09 CT Head Brain wo Cont In Process Unspecified. EDMS 22:14 Patient has correct armband on for positive identification. kd3 23:13 No provider procedures requiring assistance completed. IV discontinued, intact, sm5 bleeding controlled, No redness/swelling at site. Pressure dressing applied. Administered Medications: 20:51 Drug: Zofran (Ondansetron) 4 mg Route: IVP; Site: left forearm; kd3 20:51 Drug: Dexamethasone 10 mg Route: IVP; Site: left forearm; kd3 20:52 Drug: NS 0.9% 1000 ml Route: IV; Rate: 1 bolus; Site: left forearm; kd3 21:45 Follow up: IV Status: Completed infusion; IV Intake: 1000ml sm5 20:52 Drug: Reglan (metoCLOPramide) 10 mg Route: IVP; Site: left forearm; kd3 21:55 Drug: Hydrochlorothiazide 25 mg Route: PO; kd3 21:56 Drug: hydrALAZINE 10 mg Route: IVP; Site: left forearm; kd3 22:45 Drug: hydrALAZINE 10 mg Route: IVP; Site: left forearm; kd3 23:11 Drug: Lisinopril 20 mg Route: PO; 5 23:14 Follow up: Response: Medication administered at discharge. 5 Intake: 21:45 IV: 1000ml; Total: 1000ml. 5 Outcome: 23:02 Discharge ordered by . meron 23:13 Discharged to home ambulatory. 5 23:13 Condition: stable 23:13 Discharge instructions given to patient, Instructed on discharge instructions, follow up and referral plans. medication usage, Demonstrated understanding of instructions, follow-up care, medications, Prescriptions given X 2. 23:14 Patient left the ED. 5 Signatures: Dispatcher [employer] EDMS Landon Rahman PA PA cp Doucette, Kyli RN RN kd3 Soraya Head5 Marko Villasenor Sarah, RN RN sm5
[2021-05-09] MEDS ORDERED: lisinopriL 20 MG TAB ONE (23:08)
[2021-05-10 00:51] VITALS: TEMP 98.2
[2021-05-10 00:53] VITALS: O2SAT 100
[2021-05-10 00:55] VITALS: BP 179/109
== END 2021-05-09 23:14 | disposition home or self-care (01) ==
LOC: ER 19:54
DX: I11.9 Hypertensive heart disease without heart failure (principal); I10 Essential (primary) hypertension; Z88.6 Allergy status to analgesic agent
CPT/HCPCS: 36415; 70450; 80048; 85025; 85610; 96361; 96374; 96375; 99284; J0360; J1100; J2405; J2765; J7030

== ENCOUNTER 2021-10-14 22:49 | Emergency (ER) | payer SELFPAY ==
[2021-10-14] MEDS ORDERED: HYDROCODONE/APAP 5/325 MG TAB ONE (23:46)
[2021-10-14] MEDS ORDERED: AMLODIPINE 10 MG TAB ONE ×2 (23:46→23:50)
[2021-10-14] MEDS ORDERED: lisinopriL 20 MG TAB ONE (23:46)
--- NOTE | 2021-10-15 00:27 | EDPHYS ---
[facility] Name: Cele Lewis Age: 51 yrs Sex: Male : 1970 Arrival Date: 10/14/2021 Time: 22:52 Bed 19 Private MD: ED Physician Ramiro García HPI: 10/14 23:59 This 51 yrs old Black Male presents to ER via Ambulatory with complaints of Headache, snw Neck and Upper Back Pain. 23:59 The patient complains of pain to the generalized headache. The patient describes the snw headache as pounding, a pressure, sharp. Onset: The symptoms/episode began/occurred gradually. Severity of symptoms: At its worst the pain was moderate. Headache History: Other with increase in blood pressure. pt is in ED frequently, no PCP, gets Lisinopril Rx from EDs. The symptoms are alleviated by nothing. the symptoms are aggravated by movement. The patient has experienced similar episodes in the past, chronically. gets bp refills from EDs. Historical: - Allergies: 22:59 No Known Allergies; aa9 - Home Meds: 22:59 lisinopril 10 mg Oral tab 1 tab twice daily [Active]; aa9 - PMHx: 22:59 Hypertension; aa9 - PSHx: 22:59 None; aa9 - Immunization history:: Flu vaccine is up to date. - Social history:: Smoking status: Patient denies any tobacco usage or history of. ROS: 23:59 Constitutional: Negative for fever, chills, and weight loss, headache, malaise ENT: snw Negative for injury, pain, and discharge, Neck: Negative for injury, pain, and swelling, Cardiovascular: Negative for chest pain, palpitations, and edema, Respiratory: Negative for shortness of breath, cough, wheezing, and pleuritic chest pain, Abdomen/GI: Negative for abdominal pain, nausea, vomiting, diarrhea, and constipation, Back: Negative for injury and pain, : Negative for injury, bleeding, discharge, and swelling, MS/Extremity: Negative for injury and deformity, Skin: Negative for injury, rash, and discoloration. 23:59 Neuro: Positive for headache. Exam: 23:09 Head/Face: Normocephalic, atraumatic. Eyes: Pupils equal round and reactive to light, snw extra-ocular motions intact. Lids and lashes normal. Conjunctiva and sclera are non-icteric and not injected. Cornea within normal limits. Periorbital areas with no swelling, redness, or edema. Neck: Trachea midline, no thyromegaly or masses palpated, and no cervical lymphadenopathy. Supple, full range of motion without nuchal rigidity, or vertebral point tenderness. No Meningismus. Chest/axilla: Normal chest wall appearance and motion. Nontender with no deformity. No lesions are appreciated. Cardiovascular: Regular rate and rhythm with a normal S1 and S2. No gallops, murmurs, or rubs. Normal PMI, no JVD. No pulse deficits. Respiratory: Lungs have equal breath sounds bilaterally, clear to auscultation and percussion. No rales, rhonchi or wheezes noted. No increased work of breathing, no retractions or nasal flaring. Abdomen/GI: Soft, non-tender, with normal bowel sounds. No distension or tympany. No guarding or rebound. No evidence of tenderness throughout. Back: No spinal tenderness. No costovertebral tenderness. Full range of motion. MS/ Extremity: Pulses equal, no cyanosis. Neurovascular intact. Full, normal range of motion. Neuro: Awake and alert, GCS 15, oriented to person, place, time, and situation. Cranial nerves II-XII grossly intact. Motor strength 5/5 in all extremities. Sensory grossly intact. Cerebellar exam normal. Normal gait. Psych: Awake, alert, with orientation to person, place and time. Behavior, mood, and affect are within normal limits. 23:09 Constitutional: The patient appears alert, awake. 23:09 Constitutional: The patient appears uncomfortable. 23:09 Skin: Appearance: shiny, tight skin. Vital Signs: 22:57 BP 215 / 129; Pulse 89; Resp 16 S; Temp 97.9(O); Pulse Ox 98% on R/A; Weight 104.33 kg aa9 (R); Height 6 ft. 0 in. (182.88 cm) (R); Pain 10/10; 23:46 BP 200 / 110; Pulse 55; Resp 17; Pulse Ox 96% on R/A; hb 0814 00:24 BP 190 / 98; Pulse 54; Resp 18; Pulse Ox 98% on R/A; hb 10/14 22:57 Body Mass Index 31.19 (104.33 kg, 182.88 cm) aa9 MDM: 10/14 23:08 Patient medically screened. snw 10/15 00:30 Data reviewed: vital signs, nurses notes. Data interpreted: Pulse oximetry: on room air snw is 98 %. Interpretation: normal. Counseling: I had a detailed discussion with the patient and/or guardian regarding: the historical points, exam findings, and any diagnostic results supporting the discharge/admit diagnosis, the presence of at least one elevated blood pressure reading (>120/80) during this emergency department visit, the need for outpatient follow up, to return to the emergency department if symptoms worsen or persist or if there are any questions or concerns that arise at home. Response to treatment: the patient's symptoms have markedly improved after treatment. Special discussion: I have referred the patient to see his PCP for further evaluation of high blood pressure. Based on the history and exam findings, there is no indication for further emergent testing or inpatient evaluation. I discussed with the patient/guardian the need to see the primary care provider for further evaluation of the symptoms. Administered Medications: 10/14 23:41 Drug: Lisinopril 20 mg Route: PO; aa9 23:41 Drug: amLODIPine 10 mg Route: PO; aa9 23:41 Drug: HYDROcodone-acetaminophen 5 mg-325 mg 1 tabs Route: PO; aa9 Disposition: 10/15 04:45 Co-signature as Attending Physician, Ramiro García DO I was immediately available on-site ms3 in the Emergency Department for consultation in the care of the patient.. Disposition Summary: 10/15/21 00:27 Discharge Ordered Location: Home snw Condition: Stable snw Diagnosis - Hypertensive urgency - headache snw - Dental root caries snw Followup: snw - With: Emergency Department - When: As needed - Reason: Worsening of condition Followup: snw - With: Private Physician - When: 2 - 3 days - Reason: Recheck today's complaints, Continuance of care, Re-evaluation by your physician Discharge Instructions: - Discharge Summary Sheet snw - Dental Caries, Adult snw - Hypertension, Adult snw - Managing Your Hypertension snw - Form - Blood Pressure Record Sheet snw - How to Take Your Blood Pressure snw - Form - Headache Record snw Forms: - Medication Reconciliation Form snw - Thank You Letter snw - Antibiotic Education snw - Prescription Opioid Use snw Prescriptions: - Isosorbide Mononitrate 30 mg Oral Tablet Sustained Release 24 hr - take 1 tablet by ORAL route once daily in the morning; 30 tablet; Refills: 0, snw Product Selection Permitted - amlodipine 5 mg Oral tablet - take 1 tablet by ORAL route once daily; 30 tablet; Refills: 0, Product snw Selection Permitted - Lisinopril 20 mg Oral Tablet - take 1 tablet by ORAL route once daily; 20 tablet; Refills: 0, Product snw Selection Permitted Signatures: Pura Thornton, TERRITORY SALES PROFESSIONAL-C TERRITORY SALES PROFESSIONAL-[place] Ramiro García DO DO ms3 Amanda gAuirre, RN RN aa9 Corrections: (The following items were deleted from the chart) 10/14 23:00 22:59 Allergies: Ibuprofen; aa9 aa9
--- NOTE | 2021-10-15 00:27 | ER ---
Nurse's Notes [facility] Name: Cele Lewis Age: 51 yrs Sex: Male : 1970 Arrival Date: 10/14/2021 Time: 22:52 Bed 19 Private MD: Diagnosis: Hypertensive urgency - headache;Dental root caries Presentation: 10/14 22:57 Chief complaint: Patient states: my head hurts. Coronavirus screen: Vaccine status: aa9 Patient reports receiving the 2nd dose of the covid vaccine. Ebola Screen: No symptoms or risks identified at this time. Initial Sepsis Screen: Does the patient meet any 2 criteria? No. Patient's initial sepsis screen is negative. Does the patient have a suspected source of infection? No. Patient's initial sepsis screen is negative. Risk Assessment: Do you want to hurt yourself or someone else? Patient reports no desire to harm self or others. Onset of symptoms was October 13, 2021. 22:57 Method Of Arrival: Ambulatory aa9 22:57 Acuity: RIO 3 aa9 Triage Assessment: 23:00 Headache History: The patient has had previous headaches and this one is similar to aa9 previous episodes. General: Appears distressed, uncomfortable, Behavior is cooperative, anxious. Pain: Complains of pain in chest Pain currently is 10 out of 10 on a pain scale. Pain began 1 day ago. Also complains of no other associated symptoms. Neuro: No deficits noted. Level of Consciousness is awake, alert, obeys commands, Oriented to person, place, time, situation. 23:00 General: reports tasting blood with headache. aa9 Historical: - Allergies: 22:59 No Known Allergies; aa9 - Home Meds: 22:59 lisinopril 10 mg Oral tab 1 tab twice daily [Active]; aa9 - PMHx: 22:59 Hypertension; aa9 - PSHx: 22:59 None; aa9 - Immunization history:: Flu vaccine is up to date. - Social history:: Smoking status: Patient denies any tobacco usage or history of. Screenin:30 Abuse screen: Denies threats or abuse. Denies injuries from another. Nutritional hb screening: No deficits noted. Tuberculosis screening: No symptoms or risk factors identified. Fall Risk None identified. Assessment: 23:30 General: Appears in no apparent distress. uncomfortable, Behavior is calm, cooperative. hb Pain: Pain currently is 8 out of 10 on a pain scale. Neuro: Level of Consciousness is awake, alert, obeys commands, Oriented to person, place, time, situation. Cardiovascular: Patient's skin is warm and dry. Respiratory: Respiratory effort is even, unlabored, Respiratory pattern is regular, symmetrical. GI: No signs and/or symptoms were reported involving the gastrointestinal system. : No signs and/or symptoms were reported regarding the genitourinary system. EENT: No signs and/or symptoms were reported regarding the EENT system. Derm: Skin is pink, warm \T\ dry. 10/15 00:25 Reassessment: Patient appears in no apparent distress at this time. Patient and/or hb family updated on plan of care and expected duration. Pain level reassessed. Patient is alert, oriented x 3, equal unlabored respirations, skin warm/dry/pink. Vital Signs: 10/14 22:57 BP 215 / 129; Pulse 89; Resp 16 S; Temp 97.9(O); Pulse Ox 98% on R/A; Weight 104.33 kg aa9 (R); Height 6 ft. 0 in. (182.88 cm) (R); Pain 10/10; 23:46 BP 200 / 110; Pulse 55; Resp 17; Pulse Ox 96% on R/A; hb 10/15 00:24 BP 190 / 98; Pulse 54; Resp 18; Pulse Ox 98% on R/A; hb 10/14 22:57 Body Mass Index 31.19 (104.33 kg, 182.88 cm) aa9 ED Course: 10/14 22:52 Patient arrived in ED. ja2 22:53 Pura Thornton FNP-C is PHCP. snw 22:53 Ramiro García DO is Attending Physician. snw 22:59 Triage completed. aa9 23:01 Arm band placed on. aa9 23:30 Patient has correct armband on for positive identification. hb 10/15 00:54 No provider procedures requiring assistance completed. Patient did not have IV access hb during this emergency room visit. Administered Medications: 10/14 23:41 Drug: Lisinopril 20 mg Route: PO; aa9 23:41 Drug: amLODIPine 10 mg Route: PO; aa9 23:41 Drug: HYDROcodone-acetaminophen 5 mg-325 mg 1 tabs Route: PO; aa9 Medication: 23:30 VIS not applicable for this client. Outcome: 10/15 00:27 Discharge ordered by . faustino 00:54 Discharged to home ambulatory. hb 00:54 Condition: stable 00:54 Discharge instructions given to patient, Instructed on discharge instructions, follow up and referral plans. medication usage, Demonstrated understanding of instructions, follow-up care, medications, Prescriptions given X 3. 00:54 Patient left the ED. Signatures: Pura Thornton, PIPELINES SUPERINTENDENT-C PIPELINES SUPERINTENDENT-[employer] Camryn Alberto, RN RN Maria C Moss Aylin, RN RN aa9 Corrections: (The following items were deleted from the chart) 10/14 23:00 22:59 Allergies: Ibuprofen; aa9 aa9 23:02 23:00 Pain: Complains of pain in chest Pain currently is 10 out of 10 on a pain scale. aa9 Pain began 1 day ago. Also complains of no other associated symptoms. aa9
[2021-10-15 01:01] VITALS: TEMP 97.9
[2021-10-15 01:05] VITALS: BP 190/98; O2SAT 98
== END 2021-10-15 00:54 | disposition home or self-care (01) ==
LOC: ER 22:49
DX: I16.0 Hypertensive urgency (principal); K02.7 Dental root caries
CPT/HCPCS: 99283

== ENCOUNTER 2022-12-16 11:47 | Emergency (ER) | payer SELFPAY ==
[2022-12-16] MEDS ORDERED: ONDANSETRON 4 MG/2 ML VIAL ONE (12:25)
[2022-12-16] MEDS ORDERED: MORPHINE 4 MG/ML SYR ONE (12:25)
[2022-12-16] MEDS ORDERED: NA CHLORIDE 0.9% 1,000 ML ONE (12:26)
[2022-12-16 12:47] LABS: Absolute Lymphocytes (CBC) 1.3 K/uL (0.7-4.9); Hematocrit 36.7 % (39.6-49.0); Lymphocytes % 25.4 % (15.3-44.8); MCV 73.3 fL (80-100); MPV 9.5 fL (7.6-11.3); Platelets 302 thou/uL (152-406); RBC Red Blood Cell Count 5.01 M/uL (4.33-5.43)
[2022-12-16 13:07] LABS: Albumin 3.6 g/dL (3.4-5.0); Bilirubin Total 0.3 mg/dL (0.2-1.0); Potassium 3.4 mEq/L (3.5-5.1); Protein, Total 7.7 g/dL (6.4-8.2)
--- NOTE | 2022-12-16 13:46 | RAD REPORT ---
EXAM DESCRIPTION: CTAbdomen Pelvis W Contrast - 12/16/2022 1:34 pm CLINICAL HISTORY: Abdominal pain. ABD PAIN COMPARISON: Angio Aorta For Dissection dated 11/24/2022 TECHNIQUE: Biphasic CT imaging of the abdomen and pelvis was performed with 100 ml non-ionic IV cont rast. All CT scans are performed using dose optimization technique as appropriate and may include automated exposure control or mA/KV adjustment according to patient size. FINDINGS: The lung bases are clear. The liver is mildly enlarged in size with diffuse fatty infiltration. Small low-density hepatic lesio ns are scattered throughout the liver parenchyma likely benign cysts. No aggressive liver mass eviden t. No evidence of pathologic biliary tree dilatation. Spleen, pancreas, adrenal glands and kidneys ar e within normal limits. No bowel obstruction, free air, free fluid or abscess. Prominent sigmoid diverticulosis coli is noted . There is subtle reticulation of the fat adjacent to the sigmoid colon in the left lower quadrant bush ggesting mild acute diverticulitis. Moderate stool retention throughout the colon. The appendix is no rmal. No evidence of significant lymphadenopathy. Moderate lower lumbar degenerative spondylosis. IMPRESSION: Subtle inflammation adjacent to the sigmoid colon in the left lower quadrant where numer ous diverticula are present. This suggests subtle diverticulitis, which may be residual from prior ep isode detected on prior CT study. Followup colonoscopy would be suggested for direct visualization if not recently performed. Elsewhere, there is no new acute abnormality present. Hepatic size is prominent with diffuse mild fatty liver.
--- NOTE | 2022-12-16 14:01 | ER ---
Nurse's Notes [facility] Name: Cele Lewis Age: 52 yrs Sex: Male : 1970 Arrival Date: 12/16/2022 Time: 11:47 Bed 18 Private MD: Diagnosis: Diverticulitis of large intestine without perforation or abscess with bleeding Presentation: 12/16 12:17 Chief complaint: Patient states: abdominal pain x2 days, worse today. denies n/v/d. pt kc6 hypertensive, Dr. Geller notfied. Coronavirus screen: At this time, the client does not indicate any symptoms associated with coronavirus-19. Ebola Screen: No symptoms or risks identified at this time. Initial Sepsis Screen: Does the patient meet any 2 criteria? No. Patient's initial sepsis screen is negative. Does the patient have a suspected source of infection? No. Patient's initial sepsis screen is negative. Risk Assessment: Do you want to hurt yourself or someone else? Patient reports no desire to harm self or others. Onset of symptoms was December 16, 2022. 12:17 Method Of Arrival: Ambulatory kc6 12:17 Acuity: RIO 3 kc6 Triage Assessment: 12:18 General: Appears in no apparent distress. uncomfortable, Behavior is calm, cooperative, kc6 appropriate for age. Pain: Complains of pain in abdomen Pain currently is 10 out of 10 on a pain scale. Pain began 2-3 days ago. Neuro: Level of Consciousness is awake, alert, obeys commands, Oriented to person, place, time, situation, Appropriate for age. Cardiovascular: Denies chest pain, Capillary refill < 3 seconds. Respiratory: Airway is patent Trachea midline Respiratory effort is even, unlabored, Respiratory pattern is regular, symmetrical, Denies shortness of breath. GI: Abdomen is flat, non-distended, Bowel sounds present X 4 quads. Patient currently denies diarrhea, nausea, vomiting. : No signs and/or symptoms were reported regarding the genitourinary system. Derm: No signs and/or symptoms reported regarding the dermatologic system. Skin is intact, is healthy with good turgor, Skin is pink, warm \T\ dry. Musculoskeletal: No signs and/or symptoms reported regarding the musculoskeletal system. Circulation, motion, and sensation intact. Capillary refill < 3 seconds, Range of motion: intact in all extremities. Historical: - Allergies: 12:18 No Known Allergies; [facility] - Home Meds: 12:18 lisinopril 10 mg Oral tab 1 tab twice daily for hypertension [Active]; kc6 - PMHx: 12:18 Hypertension; 6 - PSHx: 12:18 None; 6 - Immunization history:: Client reports receiving the 2nd dose of the Covid vaccine, Flu vaccine is not up to date. - Social history:: Smoking status: Patient denies any tobacco usage or history of. Screenin:19 [facility] ED Fall Risk Assessment (Adult) History of falling in the last 3 months, kc6 including since admission No falls in past 3 months (0 pts) Confusion or Disorientation No (0 pts) Intoxicated or Sedated No (0 pts) Impaired Gait No (0 pts) Mobility Assist Device Used No (0 pt) Altered Elimination No (0 pt) Score/Fall Risk Level 0 - 2 = Low Risk. Abuse screen: Denies threats or abuse. Denies injuries from another. Nutritional screening: No deficits noted. Tuberculosis screening: No symptoms or risk factors identified. Assessment: 12:20 Reassessment: please see triage assessment. [facility] 13:20 Reassessment: Patient appears in no apparent distress at this time. No changes from [facility] previously documented assessment. Patient and/or family updated on plan of care and expected duration. Pain level reassessed. Patient is alert, oriented x 3, equal unlabored respirations, skin warm/dry/pink. 14:20 Reassessment: Patient appears in no apparent distress at this time. No changes from [facility] previously documented assessment. Patient and/or family updated on plan of care and expected duration. Pain level reassessed. Patient is alert, oriented x 3, equal unlabored respirations, skin warm/dry/pink. Vital Signs: 12:17 BP 201 / 110; Pulse 80; Resp 16 S; Temp 98.2(O); Pulse Ox 100% on R/A; Weight 106.59 kg kc6 (R); Height 6 ft. 0 in. (R); Pain 10/10; 13:22 BP 205 / 95; Pulse 56; Resp 16 S; Pulse Ox 100% on R/A; 6 12:17 Body Mass Index 31.87 (106.59 kg, 182.88 cm) kc6 12:17 Pain Scale: Adult kc6 ED Course: 11:50 Patient arrived in ED. im 11:51 Elías Geller MD is Attending Physician. ec2 12:09 Josiane Whitehead, JOLIE is Primary Nurse. kc6 12:18 Triage completed. kc6 12:18 Arm band placed on. kc6 12:19 Patient has correct armband on for positive identification. Bed in low position. Call kc6 light in reach. Side rails up X2. Adult w/ patient. Client placed on continuous cardiac and pulse oximetry monitoring. NIBP monitoring applied. 12:27 Inserted saline lock: 22 gauge in left antecubital area, using aseptic technique. Blood ap3 collected. 12:31 Note: PENDING LABS. Radiology exam delayed due to lab results not completed at this sw time. 13:36 CT Abd/Pelvis - IV Contrast Only In Process Unspecified. EDMS 14:25 No provider procedures requiring assistance completed. IV discontinued, intact, kc6 bleeding controlled, No redness/swelling at site. Pressure dressing applied. Administered Medications: 12:31 Drug: NS 0.9% IV 1000 ml IV at 1 bolus Per protocol; 1000 mL bolus Route: IV; Rate: 1 kc6 bolus; Site: left forearm; 14:24 Follow up: Response: No adverse reaction; IV Status: Completed infusion; IV Intake: kc6 1000ml 12:31 Drug: Ondansetron IVP 4 mg IVP once; over 2 minutes Route: IVP; Site: left forearm; kc6 13:23 Follow up: Response: No adverse reaction kc6 12:31 Drug: morphine IVP or IV 4 mg IVP once over 4 mins Route: IVP; Infused Over: 4 mins; kc6 Site: left forearm; 13:23 Follow up: Response: No adverse reaction; RASS: Alert and Calm (0) kc6 Medication: 14:26 VIS not applicable for this client. kc6 Intake: 14:24 IV: 1000ml; Total: 1000ml. kc6 Outcome: 14:01 Discharge ordered by . ec2 14:25 Discharged to home ambulatory, with family, kc6 14:25 Condition: stable 14:25 Discharge instructions given to patient, Instructed on discharge instructions, follow up and referral plans. medication usage, Demonstrated understanding of instructions, follow-up care, medications, Prescriptions given X 2, 14:26 Patient left the ED. kc6 Signatures: Dispatcher [employer] EDCele Sanches Amanda, RN RN ap3 Josiane Whitehead RN RN kc6 Annia Sullivan Edwin, MD MD ec2 Corrections: (The following items were deleted from the chart) 12:31 12:17 Chief complaint: Patient states: abdominal pain x2 days, worse today. denies kc6 n/v/d kc6
--- NOTE | 2022-12-16 14:01 | EDPHYS ---
Physician Documentation [facility] Name: Cele Lewis Age: 52 yrs Sex: Male : 1970 Arrival Date: 12/16/2022 Time: 11:47 Bed 18 Private MD: ED Physician Elías Geller HPI: 12/16 12:04 This 52 yrs old Black Male presents to ER via Unassigned with complaints of Abdominal ec2 Pain. 12:04 Patient arrives today due to concern for worsening abdominal pain. States that he was ec2 recently diagnosed with some type of abdominal infection and was sent home on antibiotics. External record review performed by myself that shows that patient had a recent diagnosis of diverticulitis, uncomplicated. Patient reports that he has had intermittent pain however is progressively gotten worse over the past couple days. Recent diagnosis was approximately 1 month ago per the patient. Patient reports no fevers or chills, no cough or cold symptoms, no urinary problems.. Historical: - Allergies: 12:18 No Known Allergies; 6 - Home Meds: 12:18 lisinopril 10 mg Oral tab 1 tab twice daily for hypertension [Active]; kc6 - PMHx: 12:18 Hypertension; kc6 - PSHx: 12:18 None; kc6 - Immunization history:: Client reports receiving the 2nd dose of the Covid vaccine, Flu vaccine is not up to date. - Social history:: Smoking status: Patient denies any tobacco usage or history of. ROS: 12:04 Abdomen/GI: abd pain ec2 Exam: 12:04 Constitutional: PHYSICAL EXAMINATION: GENERAL: No acute distress HEENT: Extraocular ec2 motions intact CV: Regular rate LUNGS: No respiratory distress ABDOMEN: Nondistended, soft, tender in the left abdomen and epigastrium. No guarding, not rigid SKIN: No rash NEUROLOGIC: Moves all extremities equally Vital Signs: 12:17 BP 201 / 110; Pulse 80; Resp 16 S; Temp 98.2(O); Pulse Ox 100% on R/A; Weight 106.59 kg kc6 (R); Height 6 ft. 0 in. (R); Pain 10/10; 13:22 BP 205 / 95; Pulse 56; Resp 16 S; Pulse Ox 100% on R/A; kc6 12:17 Body Mass Index 31.87 (106.59 kg, 182.88 cm) kc6 12:17 Pain Scale: Adult kc6 MDM: 11:51 Patient medically screened. ec2 13:27 ED course: Patient's lab work is remarkable for reassuring CBC without leukocytosis, ec2 metabolic profile with minimal hypokalemia with a potassium of 3.4, does have reassuring electrolytes otherwise. Pending CT abdomen pelvis. . 13:55 ED course: CT abdomen pelvis shows improved diverticulitis, persistent, no complication ec2 such as abscess identified. Patient otherwise well-appearing without vital sign abnormalities, I will start the patient antibiotics and discharged home. Ultimately I feel could be appropriate for home given his reassuring general work-up . 14:06 Data reviewed: vital signs. ec2 12/16 12:04 Order name: CBC with Diff; Complete Time: 13:27 ec2 12/16 12:04 Order name: CMP; Complete Time: 13:27 ec2 12/16 12:04 Order name: Lipase; Complete Time: 13:27 ec2 12/16 12:04 Order name: CT Abd/Pelvis - IV Contrast Only; Complete Time: 13:52 ec2 12/16 12:04 Order name: IV Saline Lock; Complete Time: 12:27 ec2 12/16 12:04 Order name: Labs collected and sent; Complete Time: 12:31 ec2 Administered Medications: 12:31 Drug: NS 0.9% IV 1000 ml IV at 1 bolus Per protocol; 1000 mL bolus Route: IV; Rate: 1 kc6 bolus; Site: left forearm; 14:24 Follow up: Response: No adverse reaction; IV Status: Completed infusion; IV Intake: kc6 1000ml 12:31 Drug: Ondansetron IVP 4 mg IVP once; over 2 minutes Route: IVP; Site: left forearm; kc6 13:23 Follow up: Response: No adverse reaction kc6 12:31 Drug: morphine IVP or IV 4 mg IVP once over 4 mins Route: IVP; Infused Over: 4 mins; kc6 Site: left forearm; 13:23 Follow up: Response: No adverse reaction; RASS: Alert and Calm (0) kc6 Disposition Summary: 12/16/22 14:01 Discharge Ordered Notes: Location: Home ec2 Condition: Stable ec2 Diagnosis - Diverticulitis of large intestine without perforation or abscess with bleeding ec2 Discharge Instructions: - Discharge Summary Sheet ec2 - Diverticulitis ec2 Forms: - Medication Reconciliation Form ec2 - Thank You Letter ec2 - Antibiotic Education ec2 - Prescription Opioid Use ec2 - Patient Portal Instructions ec2 - Leadership Thank You Letter ec2 Prescriptions: - codeine sulfate 30 mg Oral tablet - take 1 tablet ORAL route once for 5 days; 10 tablet; Refills: 0, Product ec2 Selection Permitted - Augmentin 875-125 mg Oral Tablet - take 1 tablet ORAL route every 12 hours for 10 days; 20 tablet; Refills: 0, ec2 Product Selection Permitted Signatures: Dispatcher [employer] Josiane Muniz RN RN kc6 Elías Geller MD MD ec2 Corrections: (The following items were deleted from the chart) 13:31 13:30 ED course: Metabolic profile is pertinent for slight hypokalemia with potassium ec2 of 3.3, slight hyponatremia at 133. Patient does have some abnormal LFTs with a mild elevation in ALT and AST. CBC is remarkable for marked leukocytosis at 26.7. . ec2
[2022-12-16 14:35] VITALS: TEMP 98.2; O2SAT 100
[2022-12-16 14:41] VITALS: BP 205/95
== END 2022-12-16 14:26 | disposition home or self-care (01) ==
LOC: ER 11:47
DX: K57.32 Diverticulitis of large intestine without perforation or abscess without bleeding (principal); I10 Essential (primary) hypertension
CPT/HCPCS: 36415; 74177; 80053; 83690; 85025; 96361; 96374; 96375; 99284; J2405; J7030; Q9967

== ENCOUNTER 2022-12-29 10:37 | Emergency (ER) | payer SELFPAY ==
[2022-12-29 11:23] LABS: Absolute Lymphocytes (CBC) 1.3 K/uL (0.7-4.9); Hematocrit 35.5 % (39.6-49.0); Lymphocytes % 28.1 % (15.3-44.8); MCV 72.6 fL (80-100); MPV 8.4 fL (7.6-11.3); Platelets 231 thou/uL (152-406)
[2022-12-29 11:25] LABS: Specific Gravity 1.014 (1.005-1.030); Urine Bacteria <20 /HPF (<20); Urine Bilirubin NEGATIVE (Negative); Urine Blood Negative (Negative); Urine Clarity Turbid (Clear); Urine Color Light-Yellow (Yellow); Urine Glucose NEGATIVE (Negative); Urine Protein NEGATIVE (Negative); Urine RBC <5 /HPF (None Seen); Urine Urobilinogen Normal (Normal)
[2022-12-29 11:51] LABS: Albumin 3.2 g/dL (3.4-5.0); Bilirubin Total 0.3 mg/dL (0.2-1.0); Potassium 2.9 mEq/L (3.5-5.1); Protein, Total 7.3 g/dL (6.4-8.2); Troponin High Sensitivity 24.9 pg/mL (<58.9)
--- NOTE | 2022-12-29 12:21 | RAD REPORT ---
EXAM DESCRIPTION: CTAbdomen Pelvis W Contrast - 12/29/2022 12:08 pm CLINICAL HISTORY: ABD PAIN COMPARISON: Abdomen Pelvis W Contrast dated 12/16/2022 TECHNIQUE: CT of the abdomen and pelvis was performed. All CT scans are performed using dose optimization technique as appropriate and may include automated exposure control or mA/KV adjustment according to patient size. FINDINGS: Lower chest: Cardiomegaly. Liver: Subcentimeter low-density liver lesions that are too small to characterize but statistically b enign. Biliary: No biliary ductal dilatation. Stomach: No significant focal abnormality. Duodenum: No significant focal abnormality. Pancreas: No significant abnormality. Spleen: No significant abnormality. Adrenal: No suspicious lesions. Kidney/ureter: No hydronephrosis. No renal calculi. Retroperitoneum: No retroperitoneal adenopathy. Vascular: No aneurysm. Bowel: Diverticulosis. No evidence of acute diverticulitis.. No appendicitis. Peritoneum: No ascites or free air. Bladder: Nonspecific circumferential bladder wall thickening. Reproductive: No adnexal masses. Bones: No acute fracture. Moderate disc height loss. Other: n/a IMPRESSION: No acute intra-abdominal or pelvic finding. Nonspecific circumferential bladder wall thi ckening. Correlate with urinalysis to exclude cystitis. Diverticulosis but no evidence of acute diver ticulitis.
[2022-12-29] MEDS ORDERED: NA CHLORIDE 0.9% 1,000 ML ONE (12:49)
[2022-12-29] MEDS ORDERED: ONDANSETRON 4 MG/2 ML VIAL ONE (12:49)
[2022-12-29] MEDS ORDERED: MORPHINE 4 MG/ML SYR ONE (12:49)
[2022-12-29] MEDS ORDERED: POTASSIUM 25 MEQ EFFERV TAB ONE (12:49)
[2022-12-29] MEDS ORDERED: HYDRALAZINE HCL 20 MG/ML VIAL ONE (13:21)
--- NOTE | 2022-12-29 13:33 | ER ---
Nurse's Notes [facility] Name: Cele Lewis Age: 52 yrs Sex: Male : 1970 Arrival Date: 12/29/2022 Time: 10:37 Bed DIS1 Private MD: Diagnosis: Lower abdominal pain, unspecified;Diverticulosis of large intestine without perforation or abscess without bleeding Presentation: 12/29 10:45 Chief complaint: Lower abdominal pain x 3 days. Denies fever/N/V/D/constipation. hb Coronavirus screen: At this time, the client does not indicate any symptoms associated with coronavirus-19. Ebola Screen: No symptoms or risks identified at this time. Initial Sepsis Screen: Does the patient meet any 2 criteria? No. Patient's initial sepsis screen is negative. Does the patient have a suspected source of infection? No. Patient's initial sepsis screen is negative. Risk Assessment: Do you want to hurt yourself or someone else? Patient reports no desire to harm self or others. Onset of symptoms was December 26, 2022. 10:45 Method Of Arrival: Ambulatory hb 10:45 Acuity: RIO 2 hb Historical: - Allergies: 10:46 No Known Drug Allergies; hb - Home Meds: 10:46 lisinopril 10 mg Oral tab 1 tab twice daily for Hypertension [Active]; hb - PMHx: 10:46 Hypertension; hb - Immunization history:: Adult Immunizations up to date. - Social history:: Smoking status: Patient denies any tobacco usage or history of. Vital Signs: 10:45 BP 197 / 111; Pulse 64; Resp 16; Temp 98.2; Pulse Ox 100% on R/A; Weight 106.59 kg; hb Height 6 ft. 0 in. ; Pain 9/10; 13:06 BP 208 / 130; Pulse 68; Resp 15; Pulse Ox 100% ; Pain 8/10; jl7 13:35 BP 157 / 104; Pulse 68; Resp 15; Pulse Ox 100% ; jl7 10:45 Body Mass Index 31.87 (106.59 kg, 182.88 cm) hb 10:45 Pain Scale: Adult hb 13:06 Pain Scale: Adult jl7 ED Course: 10:39 Patient arrived in ED. mg5 10:41 Inez Amin PA-C is PHCP. sb4 10:41 Elías Geller MD is Attending Physician. sb4 10:46 Triage completed. hb 10:47 Arm band placed on right wrist. hb 11:19 Initial lab(s) drawn, by me, sent to lab. Inserted saline lock: 20 gauge in left em1 forearm, using aseptic technique. Blood collected. 12:10 CT Abd/Pelvis - IV Contrast Only In Process Unspecified. EDMS 12:44 Jono Mcgregor RN is Primary Nurse. jl7 13:32 Fer Munroe MD is Referral Physician. sb4 14:16 No provider procedures requiring assistance completed. IV discontinued, intact, jl7 bleeding controlled, No redness/swelling at site. Pressure dressing applied. 14:17 Patient has correct armband on for positive identification. jl7 Administered Medications: 12:44 Drug: NS 0.9% IV 1000 ml IV at 1 bolus Per protocol; 1000 mL bolus Route: IV; Rate: 1 jl7 bolus; Site: right forearm; 13:45 Follow up: Response: No adverse reaction; IV Status: Completed infusion; IV Intake: jl7 1000ml 12:44 Drug: Potassium PO Effervescent Tablet 50 mEq PO once; dissolve in 4 ounces of water or jl7 juice Route: PO; 14:56 Follow up: Response: No adverse reaction jl7 12:45 Drug: Ondansetron IVP 4 mg IVP once; over 2 minutes Route: IVP; Site: right forearm; jl7 13:30 Follow up: Response: No adverse reaction jl7 12:45 Drug: morphine IVP or IV 4 mg IVP once over 4 mins Route: IVP; Infused Over: 4 mins; jl7 Site: right forearm; 13:10 Follow up: Response: No adverse reaction; Pain is decreased jl7 13:10 Drug: hydrALAZINE IVP 10 mg IVP once Route: IVP; Site: right forearm; jl7 13:40 Follow up: Response: No adverse reaction; Blood pressure is lowered jl7 Intake: 13:45 IV: 1000ml; Total: 1000ml. jl7 Outcome: 13:33 Discharge ordered by . sb4 14:16 Discharged to home ambulatory, jl7 14:16 Condition: stable 14:16 Discharge instructions given to patient, Instructed on discharge instructions, follow up and referral plans. medication usage, Demonstrated understanding of instructions, follow-up care, medications, Prescriptions given X 1, 14:17 Patient left the ED. jl7 Signatures: Dispatcher [employer] Prakash Key em1 Camryn Alberto RN RN Jono Rendon RN RN jl7 Inez Amin, NETO PASabrina sb4 Su Palma 5
--- NOTE | 2022-12-29 13:33 | EDPHYS ---
Physician Documentation [facility] Name: Cele Lewis Age: 52 yrs Sex: Male : 1970 Arrival Date: 12/29/2022 Time: 10:37 Bed DIS1 Private MD: ED Physician Elías Geller HPI: 12/29 10:52 This 52 yrs old Black Male presents to ER via Ambulatory with complaints of Abdominal sb4 Pain. 10:52 The patient presents with abdominal pain in the lower abdomen. Onset: The sb4 symptoms/episode began/occurred 3 day(s) ago. The symptoms do not radiate. Associated signs and symptoms: none. The symptoms are described as vague. Modifying factors: The symptoms are alleviated by nothing, the symptoms are aggravated by touching the area. The patient has experienced similar episodes in the past, multiple times. 10:53 The patient has been recently seen at the [facility] Emergency sb4 Department, 2 weeks ago. Historical: - Allergies: 10:46 No Known Drug Allergies; hb - Home Meds: 10:46 lisinopril 10 mg Oral tab 1 tab twice daily for Hypertension [Active]; hb - PMHx: 10:46 Hypertension; hb - Immunization history:: Adult Immunizations up to date. - Social history:: Smoking status: Patient denies any tobacco usage or history of. ROS: 10:53 Constitutional: Negative for fever, chills, and weight loss, sb4 10:53 Abdomen/GI: Positive for abdominal pain, 10:53 All other systems are negative, Exam: 10:53 Constitutional: This is a well developed, well nourished patient who is awake, alert, sb4 and in no acute distress. Head/Face: Normocephalic, atraumatic. Eyes: Extra-ocular motions intact. Periorbital areas with no swelling, redness, or edema. ENT: Mucous membranes moist. Cardiovascular: Regular rate and rhythm with a normal S1 and S2. Respiratory: Lungs have equal breath sounds bilaterally, clear to auscultation and percussion. No rales, rhonchi or wheezes noted. No increased work of breathing, no retractions or nasal flaring. Skin: Warm, dry with normal turgor. Normal color with no rashes, no lesions, and no evidence of cellulitis. MS/ Extremity: Pulses equal, no cyanosis. Neurovascular intact. Full, normal range of motion. Neuro: Awake and alert, GCS 15, oriented to person, place, time, and situation. Motor strength 5/5 in all extremities. Sensory grossly intact. 10:53 Abdomen/GI: Inspection: abdomen appears normal, Bowel sounds: normal, Palpation: soft, moderate abdominal tenderness, in the right lower quadrant and left lower quadrant, Vital Signs: 10:45 BP 197 / 111; Pulse 64; Resp 16; Temp 98.2; Pulse Ox 100% on R/A; Weight 106.59 kg; hb Height 6 ft. 0 in. ; Pain 9/10; 13:06 BP 208 / 130; Pulse 68; Resp 15; Pulse Ox 100% ; Pain 8/10; jl7 13:35 BP 157 / 104; Pulse 68; Resp 15; Pulse Ox 100% ; jl7 10:45 Body Mass Index 31.87 (106.59 kg, 182.88 cm) hb 10:45 Pain Scale: Adult hb 13:06 Pain Scale: Adult jl7 MDM: 10:48 Patient medically screened. sb4 10:53 Differential diagnosis: bowel obstruction, diverticulitis, non-specific abd pain, sb4 Peptic Ulcer Disease, urinary tract infection. 12/30 09:19 Data reviewed: vital signs, nurses notes, lab test result(s), radiologic studies, and sb4 as a result, I will discharge patient. Care significantly affected by the following chronic conditions: Hypertension. Counseling: I had a detailed discussion with the patient and/or guardian regarding the historical points, exam findings, and any diagnostic results supporting the discharge/admit diagnosis, the presence of at least one elevated blood pressure reading (>120/80) during this emergency department visit, lab results, radiology results, the need for outpatient follow up, a chairperson anesthesiology, to return to the emergency department if symptoms worsen or persist or if there are any questions or concerns that arise at home. 12/29 10:51 Order name: CBC with Diff; Complete Time: 11:24 sb4 12/29 10:51 Order name: CMP; Complete Time: 11:52 sb4 12/29 10:51 Order name: Lipase; Complete Time: 11:52 sb4 12/29 10:51 Order name: Troponin High Sensitivity; Complete Time: 11:52 sb4 12/29 10:51 Order name: UAM; Complete Time: 11:25 sb4 12/29 10:51 Order name: CT Abd/Pelvis - IV Contrast Only; Complete Time: 12:22 sb4 12/29 10:51 Order name: IV Saline Lock; Complete Time: 11:19 sb4 12/29 10:51 Order name: Labs collected and sent; Complete Time: 11:19 sb4 Administered Medications: 12/29 12:44 Drug: NS 0.9% IV 1000 ml IV at 1 bolus Per protocol; 1000 mL bolus Route: IV; Rate: 1 jl7 bolus; Site: right forearm; 13:45 Follow up: Response: No adverse reaction; IV Status: Completed infusion; IV Intake: jl7 1000ml 12:44 Drug: Potassium PO Effervescent Tablet 50 mEq PO once; dissolve in 4 ounces of water or jl7 juice Route: PO; 14:56 Follow up: Response: No adverse reaction jl7 12:45 Drug: Ondansetron IVP 4 mg IVP once; over 2 minutes Route: IVP; Site: right forearm; jl7 13:30 Follow up: Response: No adverse reaction jl7 12:45 Drug: morphine IVP or IV 4 mg IVP once over 4 mins Route: IVP; Infused Over: 4 mins; jl7 Site: right forearm; 13:10 Follow up: Response: No adverse reaction; Pain is decreased jl7 13:10 Drug: hydrALAZINE IVP 10 mg IVP once Route: IVP; Site: right forearm; jl7 13:40 Follow up: Response: No adverse reaction; Blood pressure is lowered jl7 Disposition Summary: 12/29/22 13:33 Discharge Ordered Notes: Location: Home sb4 Problem: an ongoing problem sb4 Symptoms: are unchanged sb4 Condition: Stable sb4 Diagnosis - Lower abdominal pain, unspecified sb4 - Diverticulosis of large intestine without perforation or abscess without bleeding sb4 Followup: sb4 - With: Fer Munroe MD - When: 2 - 3 days - Reason: Further diagnostic work-up, Recheck today's complaints, Re-evaluation by your physician Discharge Instructions: - Discharge Summary Sheet sb4 - Abdominal Pain, Adult sb4 - Diverticulosis sb4 Forms: - Work release form sb4 - Medication Reconciliation Form sb4 - Thank You Letter sb4 - Antibiotic Education sb4 - Prescription Opioid Use sb4 - Patient Portal Instructions sb4 - Leadership Thank You Letter sb4 Prescriptions: - dicyclomine 20 mg Oral tablet - take 1 tablet ORAL route 4 times per day; 20 tablet; Refills: 0, Product sb4 Selection Permitted Addendum: 12/30/2022 15:05 I was immediately available for consultation during this patient's visit. I did not e c2 personally see the patient or guide the patient's care.. Signatures: Dispatcher [employer] EDCamryn Levy RN RN Jono Mcgregor RN RN jl7 Inez Amin, PASabrina PASabrina sb4 Elías Geller MD MD ec2 Corrections: (The following items were deleted from the chart) 12/29 10:53 10:52 The patient has been recently seen at the [facility] sb4 Emergency Department, last week, sb4
[2022-12-29 14:34] VITALS: TEMP 98.2; O2SAT 100
[2022-12-29 14:41] VITALS: BP 157/104
== END 2022-12-29 14:17 | disposition home or self-care (01) ==
LOC: ER 10:37
DX: K57.30 Diverticulosis of large intestine without perforation or abscess without bleeding (principal)
CPT/HCPCS: 36415; 74177; 80053; 81001; 83690; 84484; 85025; 96361; 96374; 96375; 99284; J0360; J2405; J7030; Q9967

== ENCOUNTER 2023-06-11 18:18 | Emergency (ER) | payer SELFPAY ==
[2023-06-11] MEDS ORDERED: KETOROLAC 30 MG/ML INJ ONE (19:08)
[2023-06-11] MEDS ORDERED: HYDROCODONE/APAP 5/325 MG TAB ONE (19:08)
--- NOTE | 2023-06-11 19:25 | EDPHYS ---
Physician Documentation [facility] Name: Cele Lweis Age: 52 yrs Sex: Male : 1970 Arrival Date: 06/11/2023 Time: 18:18 Bed 18 Private MD: ED Physician Frecnh Currie HPI: 06/10 18:58 This 52 yrs old Black Male presents to ER via Ambulatory with complaints of Toothache. ci 18:58 The patient presents with pain, redness. The problem is located in the face. Onset: The ci symptoms/episode began/occurred 7 month(s) ago, and became worse 3 day(s) ago. Duration: The symptoms are continuous, and are steadily getting worse. Modifying factors: The symptoms are alleviated by over the counter medications, Excedrin PM but stopped working the past few days.. Associated signs and symptoms: Pertinent negatives: chills, fever, inability to eat, nausea, pain. Severity of symptoms: in the emergency department the symptoms a " 10" out of "10". Patient noted to be hypertensive on the monitor, reports he is not taking his 20 mg lisinopril today. Denies chest pain, shortness of breath, nausea/vomiting.. Historical: - Allergies: 18:40 No Known Allergies; as6 - PMHx: 18:40 Hypertension; as6 - PSHx: 18:40 None; as6 - Immunization history:: Adult Immunizations up to date. - Infectious Disease History:: Denies. - Social history:: Smoking status: Patient denies any tobacco usage or history of. - History obtained from: friend. ROS: 18:58 Constitutional: Negative for fever, chills, and weight loss, ci 18:58 ENT: Positive for dental pain, Negative for drainage from ear(s), ear pain, rhinorrhea, Exam: 18:58 Constitutional: This is a well developed, well nourished patient who is awake, alert, ci and in no acute distress. Head/Face: Normocephalic, atraumatic. Eyes: Pupils equal round and reactive to light, extra-ocular motions intact. Lids and lashes normal. Conjunctiva and sclera are non-icteric and not injected. Cornea within normal limits. Periorbital areas with no swelling, redness, or edema. Neck: Trachea midline, no thyromegaly or masses palpated, and no cervical lymphadenopathy. Supple, full range of motion without nuchal rigidity, or vertebral point tenderness. No Meningismus. Chest/axilla: Normal chest wall appearance and motion. Nontender with no deformity. No lesions are appreciated. Cardiovascular: Regular rate and rhythm with a normal S1 and S2. No gallops, murmurs, or rubs. Normal PMI, no JVD. No pulse deficits. Respiratory: Lungs have equal breath sounds bilaterally, clear to auscultation and percussion. No rales, rhonchi or wheezes noted. No increased work of breathing, no retractions or nasal flaring. Abdomen/GI: Soft, non-tender, with normal bowel sounds. No distension or tympany. No guarding or rebound. No evidence of tenderness throughout. Back: No spinal tenderness. No costovertebral tenderness. Full range of motion. Skin: Warm, dry with normal turgor. Normal color with no rashes, no lesions, and no evidence of cellulitis. MS/ Extremity: Pulses equal, no cyanosis. Neurovascular intact. Full, normal range of motion. Neuro: Awake and alert, GCS 15, oriented to person, place, time, and situation. Cranial nerves II-XII grossly intact. Motor strength 5/5 in all extremities. Sensory grossly intact. Cerebellar exam normal. Normal gait. Psych: Awake, alert, with orientation to person, place and time. Behavior, mood, and affect are within normal limits. 19:19 ENT: Dental exam: dental caries, specifically in the upper right second molar (#2) and ci upper left second molar (#15), gum swelling, that is mild, malocclusion, is not appreciated, pain, specifically in the upper right second molar (#2) and upper left second molar (#15), Vital Signs: 18:38 BP 178 / 114; Pulse 81; Resp 18 S; Temp 98.1(TE); Pulse Ox 100% on R/A; Weight 106.59 as6 kg (R); Height 6 ft. 0 in. (R); Pain 10/10; 18:38 Body Mass Index 31.87 (106.59 kg, 182.88 cm) as6 18:38 Pain Scale: Adult as6 MDM: 18:44 Patient medically screened. ci 19:19 Differential diagnosis: dental caries, gingivitis, dental abscess, pericoronitis, ci gingivostomatitis. Data reviewed: vital signs, nurses notes. I considered the following discharge prescriptions or medication management in the emergency department I discussed and recommended Over The Counter medications, Medications were administered in the Emergency Department. See MAR. Historians other than the Patient:. Care significantly affected by the following chronic conditions: Hypertension. Counseling: I had a detailed discussion with the patient and/or guardian regarding the presence of at least one elevated blood pressure reading (>120/80) during this emergency department visit, the need for outpatient follow up, to return to the emergency department if symptoms worsen or persist or if there are any questions or concerns that arise at home. Medication response: Toradol partially relieved the patient's pain. ED course: Patient presents with bilateral upper dental pain. Noted to have dental caries to tooth #2 and tooth #15. No periapical abscess. Floor of mouth is soft, no trismus. Low suspicion for Malick's angina, ANUG. Patient was given Toradol and [place] for pain. Patient has an appointment coming up with dentist in 2 weeks. Will discharge on amoxicillin, naproxen and Tylenol 3. Instructed to return to the ER for new or worsening symptoms. Patient verbalized understanding and agrees with plan.. Administered Medications: 19:14 Drug: Ketorolac IM 30 mg IM once Route: IM; Site: right deltoid; jb4 19:37 Follow up: Response: No adverse reaction; Marked relief of symptoms jb4 19:14 Drug: HYDROcodone-acetaminophen PO 5 mg-325 mg 1 tabs PO once Route: PO; jb4 19:37 Follow up: Response: No adverse reaction; Marked relief of symptoms jb4 Disposition Summary: 06/11/23 19:24 Discharge Ordered Notes: Location: Home ci Condition: Stable ci Diagnosis - Dental caries, unspecified ci Followup: ci - With: Private Physician - When: 2 - 3 days - Reason: Recheck today's complaints, Re-evaluation by your physician Discharge Instructions: - Discharge Summary Sheet ci - Dental Caries, Adult ci - Dental Pain, [id number] ci Forms: - Medication Reconciliation Form ci - Thank You Letter ci - Antibiotic Education ci - Prescription Opioid Use ci - Patient Portal Instructions ci - Leadership Thank You Letter ci Prescriptions: - acetaminophen-codeine 300-30 mg Oral tablet - take 1 tablet ORAL route every 8 hours as needed for pain; 10 tablet; Refills: ci 0, Product Selection Permitted - Amoxicillin 500 mg Oral Capsule - take 1 capsule ORAL route every 8 hours for 10 days; 30 tablet; Refills: 0, ci Product Selection Permitted - Anaprox DS 550 mg Oral Tablet - take 1 tablet ORAL route every 12 hours As needed; 20 tablet; Refills: 0, ci Product Selection Permitted Signatures: Izaiah Beatty RN RN jb4 Ronnie Tsai RN RN as6 French Currie ci Corrections: (The following items were deleted from the chart) 19:21 18:58 Constitutional: This is a well developed, well nourished patient who is awake, ci alert, and in no acute distress. Head/Face: Normocephalic, atraumatic. Eyes: Pupils equal round and reactive to light, extra-ocular motions intact. Lids and lashes normal. Conjunctiva and sclera are non-icteric and not injected. Cornea within normal limits. Periorbital areas with no swelling, redness, or edema. ci
--- NOTE | 2023-06-11 19:25 | ER ---
Nurse's Notes [facility] Name: Cele Lewis Age: 52 yrs Sex: Male : 1970 Arrival Date: 06/11/2023 Time: 18:18 Bed 18 Private MD: Diagnosis: Dental caries, unspecified Presentation: 06/10 18:38 Chief complaint: Patient states: bilateral upper dental pain. pt reports this has been as6 going on for a while but has worsened over the last few days. Coronavirus screen: At this time, the client does not indicate any symptoms associated with coronavirus-19. Ebola Screen: No symptoms or risks identified at this time. Initial Sepsis Screen: Does the patient meet any 2 criteria? No. Patient's initial sepsis screen is negative. Does the patient have a suspected source of infection? No. Patient's initial sepsis screen is negative. Risk Assessment: Do you want to hurt yourself or someone else? Patient reports no desire to harm self or others. Onset of symptoms was June 08, 2023. 18:38 Method Of Arrival: Ambulatory as6 18:38 Acuity: RIO 4 as6 Triage Assessment: 18:41 General: Appears uncomfortable, Behavior is calm, cooperative. Pain: Complains of pain as6 in mouth. EENT: Reports pain in mouth. Historical: - Allergies: 18:40 No Known Allergies; as6 - PMHx: 18:40 Hypertension; as6 - PSHx: 18:40 None; as6 - Immunization history:: Adult Immunizations up to date. - Infectious Disease History:: Denies. - Social history:: Smoking status: Patient denies any tobacco usage or history of. - History obtained from: friend. Screenin:15 [facility] ED Fall Risk Assessment (Adult) History of falling in the last 3 months, jb4 including since admission No falls in past 3 months (0 pts) Confusion or Disorientation No (0 pts) Intoxicated or Sedated No (0 pts) Impaired Gait No (0 pts) Mobility Assist Device Used No (0 pt) Altered Elimination No (0 pt) Score/Fall Risk Level 0 - 2 = Low Risk Oriented to surroundings, Maintained a safe environment. Abuse screen: Denies threats or abuse. Nutritional screening: No deficits noted. Tuberculosis screening: No symptoms or risk factors identified. Assessment: 19:15 General: Appears in no apparent distress. comfortable, Behavior is calm, cooperative, jb4 appropriate for age. Pain: Complains of pain in mouth Pain does not radiate. Pain currently is 10 out of 10 on a pain scale. Neuro: Level of Consciousness is awake, alert, obeys commands, Oriented to person, place, time, situation. Cardiovascular: Patient's skin is warm and dry. Respiratory: Airway is patent Respiratory effort is even, unlabored, Respiratory pattern is regular, symmetrical. GI: No signs and/or symptoms were reported involving the gastrointestinal system. : No signs and/or symptoms were reported regarding the genitourinary system. EENT: Reports pain in mouth. Derm: Skin is intact, Skin is pink, warm \T\ dry. Musculoskeletal: Circulation, motion, and sensation intact. Range of motion: intact in all extremities. Vital Signs: 18:38 BP 178 / 114; Pulse 81; Resp 18 S; Temp 98.1(TE); Pulse Ox 100% on R/A; Weight 106.59 as6 kg (R); Height 6 ft. 0 in. (R); Pain 10/10; 18:38 Body Mass Index 31.87 (106.59 kg, 182.88 cm) as6 18:38 Pain Scale: Adult as6 ED Course: 18:28 Patient arrived in ED. mr 18:40 Triage completed. as6 18:40 Arm band placed on. as6 18:43 Mauricio Banegas, RN is Primary Nurse. bp 18:43 French Currie is Attending Physician. ci 19:15 Patient has correct armband on for positive identification. Bed in low position. Call jb4 light in reach. Side rails up X 1. Provided Education on: plan of care. 19:15 No provider procedures requiring assistance completed. jb4 19:38 Patient did not have IV access during this emergency room visit. jb4 Administered Medications: 19:14 Drug: Ketorolac IM 30 mg IM once Route: IM; Site: right deltoid; jb4 19:37 Follow up: Response: No adverse reaction; Marked relief of symptoms jb4 19:14 Drug: HYDROcodone-acetaminophen PO 5 mg-325 mg 1 tabs PO once Route: PO; jb4 19:37 Follow up: Response: No adverse reaction; Marked relief of symptoms jb4 Medication: 19:15 VIS not applicable for this client. jb4 Outcome: 19:24 Discharge ordered by . ci 19:37 Discharged to home ambulatory, jb4 19:37 Condition: stable 19:37 Discharge instructions given to patient, Instructed on discharge instructions, follow up and referral plans. no drinking with medication, no driving heavy equipment, medication usage, Demonstrated understanding of instructions, follow-up care, medications, Prescriptions given X 3, 19:38 Patient left the ED. jb4 Signatures: Angela Thao, Reg Reg mr Izaiah Beatty, RN RN jb4 Mauricio Banegas, RN RN bp Ronnie Tsai, JOLIE RN as6 French Currie ci
[2023-06-11 20:40] VITALS: BP 178/114; TEMP 98.1; O2SAT 100
== END 2023-06-11 19:38 | disposition home or self-care (01) ==
LOC: ER 18:18
DX: K02.9 Dental caries, unspecified (principal)
CPT/HCPCS: 96372; 99284

== ENCOUNTER 2023-07-08 18:27 | Emergency (ER) | payer SELFPAY ==
--- NOTE | 2023-07-08 18:43 | ER ---
Nurse's Notes [facility] Name: Cele Lewis Age: 52 yrs Sex: Male : 1970 Arrival Date: 07/08/2023 Time: 18:27 Bed Treatment Private MD: Diagnosis: Dental caries, unspecified Presentation: 07/07 18:34 Chief complaint: Patient states: bilateral upper dental pain. Coronavirus screen: At as6 this time, the client does not indicate any symptoms associated with coronavirus-19. Ebola Screen: No symptoms or risks identified at this time. Initial Sepsis Screen: Does the patient meet any 2 criteria? No. Patient's initial sepsis screen is negative. Does the patient have a suspected source of infection? No. Patient's initial sepsis screen is negative. Risk Assessment: Do you want to hurt yourself or someone else? Patient reports no desire to harm self or others. Onset of symptoms was July 06, 2023. 18:34 Method Of Arrival: Ambulatory as6 18:34 Acuity: RIO 4 as6 Historical: - Allergies: 18:35 No Known Allergies; as6 - PMHx: 18:35 Hypertension; as6 - PSHx: 18:35 None; as6 - Immunization history:: Adult Immunizations up to date. - Infectious Disease History:: Denies. - Social history:: Smoking status: Patient denies any tobacco usage or history of. Screenin:40 [facility] ED Fall Risk Assessment (Adult) History of falling in the last 3 months, me1 including since admission No falls in past 3 months (0 pts) Confusion or Disorientation No (0 pts) Intoxicated or Sedated No (0 pts) Impaired Gait No (0 pts) Mobility Assist Device Used No (0 pt) Altered Elimination No (0 pt) Score/Fall Risk Level 0 - 2 = Low Risk Maintained a safe environment, Provided non-skid footwear, Hourly rounding (assess needs \T\ fall precautionary measures) done. Abuse screen: Denies threats or abuse. Nutritional screening: No deficits noted. Tuberculosis screening: No symptoms or risk factors identified. Assessment: 18:40 General: Appears uncomfortable, well groomed, well developed, well nourished, Behavior me1 is calm, cooperative, appropriate for age, Reports toothache to upper molars bilaterally. Pain: Complains of pain in upper left second molar (#15) and upper right second molar (#2) Pain does not radiate. Pain currently is 9 out of 10 on a pain scale. Quality of pain is described as aching, sharp, Pain began gradually, Is continuous. Neuro: Level of Consciousness is awake, alert, obeys commands, Oriented to person, place, time, situation, Appropriate for age. Cardiovascular: Capillary refill < 3 seconds Patient's skin is warm and dry. Respiratory: Airway is patent Respiratory effort is even, unlabored, Respiratory pattern is regular, symmetrical. GI: No signs and/or symptoms were reported involving the gastrointestinal system. : No signs and/or symptoms were reported regarding the genitourinary system. EENT: Reports pain in upper left second molar (#15) and upper right second molar (#2). Derm: Skin is intact, is healthy with good turgor, Skin is pink, warm \T\ dry. Musculoskeletal: No signs and/or symptoms reported regarding the musculoskeletal system. Vital Signs: 18:34 BP 188 / 119; Pulse 97; Resp 18 S; Temp 97.8; Pulse Ox 99% on R/A; Weight 111.13 kg as6 (R); Height 6 ft. 0 in. (R); Pain 10/10; 19:11 Pain 3/10; me1 19:11 Pain 3/10; me1 19:11 BP 187 / 97; Pulse 94; Resp 16; Pulse Ox 100% on R/A; Pain 3/10; me1 18:34 Body Mass Index 33.23 (111.13 kg, 182.88 cm) as6 18:34 Pain Scale: Adult as6 19:11 Pain Scale: Adult me1 19:11 Pain Scale: Adult me1 19:11 Pain Scale: Adult me1 ED Course: 18:30 Patient arrived in ED. im 18:31 Inez Amin PA-C is PHCP. sb4 18:31 Quiana Oneill MD is Attending Physician. sb4 18:35 Triage completed. as6 18:36 Arm band placed on. as6 18:40 Patient has correct armband on for positive identification. Bed in low position. Call me1 light in reach. Side rails up X2. Provided Education on: POC. Verbalized understanding. . 18:40 No provider procedures requiring assistance completed. Patient did not have IV access me1 during this emergency room visit. 18:42 Cesar Medina DDS is Referral Physician. sb4 18:47 Jenn Thorpe, RN is Primary Nurse. me1 Administered Medications: 18:53 Drug: Amoxicillin-Clavulanate PO 875 mg PO once Route: PO; me1 19:12 Follow up: Response: No adverse reaction me1 18:53 Drug: Hydrocodone-Acetaminophen PO (7.5 mg-325 mg) 1 tabs PO once Route: PO; me1 19:11 Follow up: Pain 3/10 Adult; Response: No adverse reaction; Pain is decreased me1 18:53 Drug: Viscous Lidocaine Mucous Membrane Liquid (4 %) 5 ml Mucous Membrane once Route: me1 Mucous Membrane; 19:11 Follow up: Pain 3/10 Adult; Response: No adverse reaction; Pain is decreased me1 Medication: 18:40 VIS not applicable for this client. me1 Outcome: 18:42 Discharge ordered by MD. sb4 19:12 Discharged to home ambulatory, me1 19:12 Condition: stable 19:12 Discharge instructions given to patient, Instructed on discharge instructions, follow up and referral plans. medication usage, Demonstrated understanding of instructions, follow-up care, medications, Prescriptions given X 3, 19:12 Patient left the ED. me1 Signatures: Ronnie Tsai, RN RN elle6 Inez Amin, PASabrina PAMeaghanC sb4 Annia Sullivan Michelle, RN RN me1
--- NOTE | 2023-07-08 18:43 | EDPHYS ---
Physician Documentation [facility] Name: Cele Lewis Age: 52 yrs Sex: Male : 1970 Arrival Date: 07/08/2023 Time: 18:27 Bed Treatment Private MD: ED Physician Quiana Oneill HPI: 07/07 19:02 This 52 yrs old Black Male presents to ER via Ambulatory with complaints of Toothache. sb4 19:02 Patient complains of pain in his left and right upper molars. He states that this has sb4 been an ongoing issue. He has been to see a dentist but cannot afford the extraction. Denies any fever. States he is getting no pain relief with Tylenol or ibuprofen. Reports swelling and pain with eating and drinking. Historical: - Allergies: 18:35 No Known Allergies; as6 - PMHx: 18:35 Hypertension; as6 - PSHx: 18:35 None; as6 - Immunization history:: Adult Immunizations up to date. - Infectious Disease History:: Denies. - Social history:: Smoking status: Patient denies any tobacco usage or history of. ROS: 19:02 Constitutional: Negative for fever, chills, and weight loss, sb4 19:02 ENT: Positive for dental pain, 19:02 All other systems are negative, Exam: 19:02 Constitutional: This is a well developed, well nourished patient who is awake, alert, sb4 and in no acute distress. Head/Face: Normocephalic, atraumatic. Eyes: Extra-ocular motions intact. Periorbital areas with no swelling, redness, or edema. Skin: Warm, dry with normal turgor. Normal color with no rashes, no lesions, and no evidence of cellulitis. MS/ Extremity: Pulses equal, no cyanosis. Neurovascular intact. Full, normal range of motion. 19:02 ENT: Dental exam: cellulitis, fractured teeth are noted, specifically the upper right second molar (#2) and upper left second molar (#15), gum swelling, Vital Signs: 18:34 BP 188 / 119; Pulse 97; Resp 18 S; Temp 97.8; Pulse Ox 99% on R/A; Weight 111.13 kg as6 (R); Height 6 ft. 0 in. (R); Pain 10/10; 19:11 Pain 3/10; me1 19:11 Pain 3/10; me1 19:11 BP 187 / 97; Pulse 94; Resp 16; Pulse Ox 100% on R/A; Pain 3/10; me1 18:34 Body Mass Index 33.23 (111.13 kg, 182.88 cm) as6 18:34 Pain Scale: Adult as6 19:11 Pain Scale: Adult me1 19:11 Pain Scale: Adult me1 19:11 Pain Scale: Adult me1 MDM: 18:32 Patient medically screened. sb4 19:02 Data reviewed: vital signs, nurses notes, and as a result, I will discharge patient. sb4 Counseling: I had a detailed discussion with the patient and/or guardian regarding the historical points, exam findings, and any diagnostic results supporting the discharge/admit diagnosis, the need for outpatient follow up, a dentist, to return to the emergency department if symptoms worsen or persist or if there are any questions or concerns that arise at home. Administered Medications: 18:53 Drug: Amoxicillin-Clavulanate PO 875 mg PO once Route: PO; me1 19:12 Follow up: Response: No adverse reaction me1 18:53 Drug: Hydrocodone-Acetaminophen PO (7.5 mg-325 mg) 1 tabs PO once Route: PO; me1 19:11 Follow up: Pain 3/10 Adult; Response: No adverse reaction; Pain is decreased me1 18:53 Drug: Viscous Lidocaine Mucous Membrane Liquid (4 %) 5 ml Mucous Membrane once Route: me1 Mucous Membrane; 19:11 Follow up: Pain 3/10 Adult; Response: No adverse reaction; Pain is decreased me1 Disposition Summary: 07/08/23 18:42 Discharge Ordered Notes: Location: Home sb4 Problem: an ongoing problem sb4 Symptoms: are unchanged sb4 Condition: Stable sb4 Diagnosis - Dental caries, unspecified sb4 Followup: sb4 - With: Cesar Medina DDS - When: Tomorrow - Reason: Recheck today's complaints, Re-evaluation by your physician Discharge Instructions: - Discharge Summary Sheet sb4 - Dental Pain, [id number] sb4 Forms: - Antibiotic Education sb4 - Prescription Opioid Use sb4 - Patient Portal Instructions sb4 - Leadership Thank You Letter sb4 Prescriptions: - acetaminophen-codeine 300-30 mg Oral tablet - take 1 tablet ORAL route every 4 to 6 hours as needed for pain; 12 tablet; sb4 Refills: 0, Product Selection Permitted - Amoxicillin 875 mg Oral Tablet - take 1 tablet ORAL route every 12 hours for 10 days; 20 tablet; Refills: 0, sb4 Product Selection Permitted - Ibuprofen 600 mg Oral Tablet - take 1 tablet ORAL route every 6 hours As needed take with food; 30 tablet; sb4 Refills: 0, Product Selection Permitted Signatures: Ronnie Tsai RN RN as6 Inez Amin PA-C PASabrina sb4 Jenn Thorpe RN RN me1
[2023-07-08] MEDS ORDERED: AMOX/K CLAV 875 MG TAB ONE (18:49)
[2023-07-08] MEDS ORDERED: LIDOCAINE VISCOUS 2% 10ML ORAL SOLN ONE (18:49)
[2023-07-08] MEDS ORDERED: HYDROCODONE/APAP 7.5/325 MG TAB ONE (18:50)
[2023-07-08 19:30] VITALS: BP 187/97; TEMP 97.8; O2SAT 100
== END 2023-07-08 19:12 | disposition home or self-care (01) ==
LOC: ER 18:27
DX: K02.9 Dental caries, unspecified (principal)
CPT/HCPCS: 99283

== ENCOUNTER 2024-03-21 13:12 | Emergency (ER) | payer SELFPAY ==
--- NOTE | 2024-03-21 14:25 | RAD REPORT ---
EXAMINATION: CT MAXILLOFACIAL WITHOUT CONTRAST CLINICAL INDICATION: Male, 53 years old. FACIAL PAIN TECHNIQUE: Axial images were obtained through the facial bones and orbits without intravenous contras t. Sagittal and coronal reconstructions were created from the data. One or more of the following dose reduction techniques were used: Automated exposure control, adjustment of the mA and/or kV accor ding to patient size, and/or iterative reconstruction. Unless otherwise specified, incidental findings do not require dedicated imaging follow-up. [id number]. COMPARISON: No prior exam. FINDINGS: SOFT TISSUE: No significant abnormalities. BONES: Periapical lucency associated with the right second molar which has a longitudinal fracture. T here are multiple dental caries associated with the second and third molar on the right and the left second molar. ORBITS: The globes are intact. No intraorbital hemorrhage or mass. SINUSES: Trace thickening maxillary sinus. Ethmoid air cell thickening is present. Underpneumatized s phenoid sinuses. Trace thickening of frontal sinuses. BRAIN: No acute abnormalities in the visualized intracranial structures. IMPRESSION: Dental caries associated with the maxillary right second and third molar and left maxillary second mo lar. The right second molar is cracked and also has a periapical lucency that may represent a small periapical abscess. No soft tissue abscess identified.
[2024-03-21] MEDS ORDERED: KETOROLAC 30 MG/ML INJ ONE (14:49)
[2024-03-21] MEDS ORDERED: ONDANSETRON 4 MG/2 ML VIAL ONE (14:49)
[2024-03-21] MEDS ORDERED: CEFTRIAXONE 1000 MG/VIAL ONE (14:49)
[2024-03-21 14:50] LABS: Absolute Basophils 0.1 K/uL (0-0.5); Absolute Eosinophils 0.1 K/uL (0-0.5); Absolute Lymphocytes (CBC) 1.4 K/uL (0.7-4.9); Absolute Monocytes 0.4 K/uL (0.1-1.3); Absolute Neutrophil 3.4 K/uL (1.8-8.0); Basophils % 1.4 % (0-1.3); Eosinophils % 2.8 % (0-4.4); Hemoglobin 9.2 g/dL (13.6-17.9); Lymphocytes % 25.7 % (15.3-44.8); MCHC 30.9 g/dL (32.0-36.0); MCV 61.7 fL (80-100); MPV 8.8 fL (7.6-11.3); Monocytes % 6.5 % (3.3-12.3); Neutrophils % 63.6 % (41.7-73.7); Platelets 311 thou/uL (152-406); RBC Red Blood Cell Count 4.86 M/uL (4.33-5.43); Red Cell Distribution Width 19.7 % (12.1-15.2)
[2024-03-21] MEDS ORDERED: NA CHLORIDE 0.9% 50 ML ONE (14:50)
[2024-03-21] MEDS ORDERED: NA CHLORIDE 0.9% 1,000 ML ONE (14:50)
[2024-03-21 14:51] LABS: Blood Morphology Comment NOTED (NOT SEEN); Hypochromasia 2+; Microcytosis 2+; White Blood Cell Scan OK (OK)
[2024-03-21 14:58] LABS: Platelet Estimate ADEQ
[2024-03-21 16:15] LABS: Albumin 3.2 g/dL (3.4-5.0); Albumin/Globulin Ratio 0.8 (1.1-1.8); Anion Gap 7.1 mEq/L (5.0-15.0); Bilirubin Total 0.4 mg/dL (0.2-1.0); Globulin 3.8 g/dL (2.3-3.5); Potassium 3.1 mEq/L (3.5-5.1)
--- NOTE | 2024-03-21 17:18 | ER ---
Nurse's Notes [facility] Name: Cele Lewis Age: 53 yrs Sex: Male : 1970 Arrival Date: 03/21/2024 Time: 13:12 Bed 5 Private MD: Diagnosis: Dental caries, unspecified;Dental root caries;Hypokalemia;Anemia, unspecified Presentation: 03/21 13:27 Chief complaint: Patient states: BILATERAL UPPER MOLAR PAIN SINCE 0100. Coronavirus bp screen: At this time, the client does not indicate any symptoms associated with coronavirus-19. Ebola Screen: No symptoms or risks identified at this time. Initial Sepsis Screen: Does the patient meet any 2 criteria? No. Patient's initial sepsis screen is negative. Does the patient have a suspected source of infection? No. Patient's initial sepsis screen is negative. Risk Assessment: Do you want to hurt yourself or someone else? Patient reports no desire to harm self or others. Onset of symptoms was March 21, 2024 at 01:00. 13:27 Method Of Arrival: Ambulatory bp 13:27 Acuity: RIO 5 bp 16:44 Acuity: RIO 3 ap3 Historical: - Allergies: 13:28 No Known Drug Allergies; bp - PMHx: 13:28 Hypertension; bp - Immunization history:: Adult Immunizations up to date. - Infectious Disease History:: Denies. - Social history:: Smoking status: Patient denies any tobacco usage or history of. Screenin:00 [facility] ED Fall Risk Assessment (Adult) History of falling in the last 3 months, ap3 including since admission No falls in past 3 months (0 pts) Confusion or Disorientation No (0 pts) Intoxicated or Sedated No (0 pts) Impaired Gait No (0 pts) Mobility Assist Device Used No (0 pt) Altered Elimination No (0 pt) Score/Fall Risk Level 0 - 2 = Low Risk Oriented to surroundings, Maintained a safe environment, Educated pt \\T\\ family on fall prevention, incl call for assistance when getting out of bed, Assessed \\T\\ reinforced patient's understanding of fall precautions, Hourly rounding (assess needs \\T\\ fall precautionary measures) done, Used ambulatory aids as needed (educated on \\T\\ assisted with), Used gait belt as appropriate. Abuse screen: Denies threats or abuse. Nutritional screening: No deficits noted. Tuberculosis screening: No symptoms or risk factors identified. Assessment: 14:59 General: Appears in no apparent distress. Behavior is calm, cooperative, appropriate ap3 for age. Pain: Complains of pain in mouth Pain currently is 10 out of 10 on a pain scale. Neuro: Level of Consciousness is awake, alert, obeys commands, Oriented to person, place, time, situation, Appropriate for age Gait is steady, Speech is normal. Cardiovascular: Patient's skin is warm and dry. Respiratory: Airway is patent Respiratory effort is even, unlabored, Respiratory pattern is regular, symmetrical. 17:37 Reassessment: Pt refused medications. Stated "We need to leave right now or we will be ld1 left without a ride." Notified patient that we could possibly arrange transport home and that patient needs to receive medications. Pt states "I was given prescriptions I will take at home.". Vital Signs: 13:27 BP 190 / 119; Pulse 92; Resp 16; Temp 98; Pulse Ox 100% ; bp 16:44 BP 210 / 113; Pulse 75; Resp 16; Pulse Ox 100% on R/A; ap3 17:39 BP 189 / 73; Pulse 71; Resp 18; Pulse Ox 100% on R/A; ld1 ED Course: 13:14 Patient arrived in ED. ra3 13:28 Triage completed. bp 13:28 Arm band placed on. bp 13:31 Landon Smith MD is Attending Physician. carl 14:10 CT Facial Bones W/O Con In Process Unspecified. EDMS 14:42 Comprehensive Metabolic Panel Sent. ap3 14:42 CBC with Diff Sent. ap3 14:42 Initial lab(s) drawn, by me, sent to lab. Inserted saline lock: 22 gauge in right hand, ap3 using aseptic technique. Blood collected. Flushed with 10 mL NS. 16:42 Denisa Leon, JOLIE is Primary Nurse. ko1 17:16 Cesar Medina DDS is Referral Physician. carl 17:39 No provider procedures requiring assistance completed. IV discontinued, intact, ld1 bleeding controlled, No redness/swelling at site. 17:40 Patient has correct armband on for positive identification. Placed in gown. Bed in low ld1 position. Call light in reach. Side rails up X2. bus driver/monitor on. Pulse ox on. NIBP on. Door closed. Noise minimized. Warm blanket given. Administered Medications: 14:59 Drug: NS 0.9% IV 1000 ml IV at 1000 ml once; to be given as a bolus over 60 minutes ap3 Route: IV; Rate: 1000 ml; Site: right hand; 14:59 Drug: Rocephin IV 1 grams IV at per protocol once; Given slow IV push per pharmacy ap3 instructions Route: IV; Rate: per protocol; Site: right hand; 15:23 Follow up: IV Status: Completed infusion ap3 14:59 Drug: Ketorolac IVP 30 mg IVP once Route: IVP; Site: right hand; ap3 15:23 Follow up: Response: No adverse reaction ap3 14:59 Drug: Ondansetron IVP 4 mg IVP once; over 2 minutes Route: IVP; Site: right hand; ap3 15:23 Follow up: Response: No adverse reaction ap3 17:37 Not Given (Patient Refused): [id number] mg PO once ld1 17:37 Not Given (Patient Refused): [id number] mg IVPB once over 30 mins; (mix in 50 mL) ld1 17:37 Not Given (Patient Refused): [id number] mg PO once ld1 17:37 Not Given (Patient Refused): potassiumeffervescent tablet 50 meq PO once; dissolve in 4 ld1 ounces of water or juice Medication: 17:40 VIS not applicable for this client. ld1 Outcome: 17:17 Discharge ordered by . carl 17:39 Discharged to home ambulatory, with family, ld1 17:39 Condition: stable 17:39 Discharge instructions given to patient, Instructed on discharge instructions, follow up and referral plans. medication usage, Demonstrated understanding of instructions, follow-up care, medications, Prescriptions given X 4, 17:40 Patient left the ED. ld1 Signatures: Dispatcher [employer] EDMS Landon Smith MD MD cha Peltier, Brian RN RN Freya Jordan RN RN ap3 Chelle García RN RN ld1 Denisa Leon RN RN cheko1 Eunice Bryan 3
--- NOTE | 2024-03-21 17:18 | EDPHYS ---
Physician Documentation [facility] Name: Cele Lewis Age: 53 yrs Sex: Male : 1970 Arrival Date: 03/21/2024 Time: 13:12 Bed 5 Private MD: ED Physician Landon Smith HPI: 03/21 17:11 This 53 yrs old Black Male presents to ER via Ambulatory with complaints of Top teeth carl painful. 17:11 The patient presents with lost tooth/teeth, pain, redness, swelling. The problem is carl located in the face and mouth. Onset: The symptoms/episode began/occurred 2 day(s) ago. Modifying factors: The symptoms are alleviated by nothing, the symptoms are aggravated by chewing, cold fluids. Associated signs and symptoms: The patient has no apparent associated signs or symptoms. Severity of symptoms: At their worst the symptoms were moderate, in the emergency department the symptoms are unchanged. The patient has experienced similar episodes in the past, multiple times. Historical: - Allergies: 13:28 No Known Drug Allergies; bp - PMHx: 13:28 Hypertension; bp - Immunization history:: Adult Immunizations up to date. - Infectious Disease History:: Denies. - Social history:: Smoking status: Patient denies any tobacco usage or history of. ROS: 17:13 Constitutional: Negative for fever, chills, and weight loss, Eyes: Negative for injury, carl pain, redness, and discharge, Neck: Negative for injury, pain, and swelling, Cardiovascular: Negative for chest pain, palpitations, and edema, Respiratory: Negative for shortness of breath, cough, wheezing, and pleuritic chest pain, Abdomen/GI: Negative for abdominal pain, nausea, vomiting, diarrhea, and constipation, Back: Negative for injury and pain, MS/Extremity: Negative for injury and deformity, Skin: Negative for injury, rash, and discoloration, Neuro: Negative for headache, weakness, numbness, tingling, and seizure, Psych: Negative for depression, anxiety, suicide ideation, homicidal ideation, and hallucinations, Allergy/Immunology: Negative for hives, rash, and allergies, Endocrine: Negative for neck swelling, polydipsia, polyuria, polyphagia, and marked weight changes, Hematologic/Lymphatic: Negative for swollen nodes, abnormal bleeding, and unusual bruising, 17:13 ENT: Positive for dental pain, ear pain, Teeth pain Exam: 17:13 Constitutional: This is a well developed, well nourished patient who is awake, alert, carl and in no acute distress. Head/Face: Normocephalic, atraumatic. Eyes: Pupils equal round and reactive to light, extra-ocular motions intact. Lids and lashes normal. Conjunctiva and sclera are non-icteric and not injected. Cornea within normal limits. Periorbital areas with no swelling, redness, or edema. Neck: Trachea midline, no thyromegaly or masses palpated, and no cervical lymphadenopathy. Supple, full range of motion without nuchal rigidity, or vertebral point tenderness. No Meningismus. Chest/axilla: Normal chest wall appearance and motion. Nontender with no deformity. No lesions are appreciated. Cardiovascular: Regular rate and rhythm with a normal S1 and S2. No gallops, murmurs, or rubs. Normal PMI, no JVD. No pulse deficits. Respiratory: Lungs have equal breath sounds bilaterally, clear to auscultation and percussion. No rales, rhonchi or wheezes noted. No increased work of breathing, no retractions or nasal flaring. Abdomen/GI: Soft, non-tender, with normal bowel sounds. No distension or tympany. No guarding or rebound. No evidence of tenderness throughout. Back: No spinal tenderness. No costovertebral tenderness. Full range of motion. Male : Normal genitalia with no discharge or lesions. Skin: Warm, dry with normal turgor. Normal color with no rashes, no lesions, and no evidence of cellulitis. MS/ Extremity: Pulses equal, no cyanosis. Neurovascular intact. Full, normal range of motion., bilateral aka Neuro: Awake and alert, GCS 15, oriented to person, place, time, and situation. Cranial nerves II-XII grossly intact. Motor strength 5/5 in all extremities. Sensory grossly intact. Cerebellar exam normal. Normal gait. Psych: Awake, alert, with orientation to person, place and time. Behavior, mood, and affect are within normal limits. 17:13 ENT: Mouth: Lips: normal, moist, Oral mucosa: normal, pink and intact, moist, Gums: normal with healthy appearance, Tongue: is normal, abscess, is not appreciated, drooling, is not appreciated, Posterior pharynx: Airway: normal, no evidence of obstruction, Tonsils: are normal in appearance, enlarged on the right, enlarged on the left, Uvula: normal, midline, non-edematous, no erythema, swelling, is not appreciated, that is mild, erythema, is not appreciated, exudate, is not appreciated, peritonsillar mass, is not appreciated, Dental exam: dental caries, that is moderate, diffusely, fractured teeth are noted, specifically the upper right second molar (#2), gum swelling, that is mild, malocclusion, is not appreciated, missing teeth, Voice: no acute changes, Vital Signs: 13:27 BP 190 / 119; Pulse 92; Resp 16; Temp 98; Pulse Ox 100% ; bp 16:44 BP 210 / 113; Pulse 75; Resp 16; Pulse Ox 100% on R/A; ap3 17:39 BP 189 / 73; Pulse 71; Resp 18; Pulse Ox 100% on R/A; ld1 MDM: 13:31 Medical Screening Exam initiated carl 17:15 Differential diagnosis: dental caries, gingivitis, dental abscess, pericoronitis, carl aphthous ulcers, acute necrotizing ulcerative gingivitis, gingivostomatitis. Data reviewed: vital signs, nurses notes, lab test result(s), radiologic studies, CT scan. Consideration of Admission/Observation Escalation of care including admission/observation considered. I considered the following discharge prescriptions or medication management in the emergency department Medications were administered in the Emergency Department. See MAR. Independent interpretation of the following test(s) in the Emergency Department CT Scan: My interpretation is ct max face. Test considered but Not performed: X-ray: no x ray. Historians other than the Patient: pt well informed. Care significantly affected by the following chronic conditions: Hypertension. Counseling: I had a detailed discussion with the patient and/or guardian regarding the historical points, exam findings, and any diagnostic results supporting the discharge/admit diagnosis, the presence of at least one elevated blood pressure reading (>120/80) during this emergency department visit, lab results, radiology results, the need for outpatient follow up, for definitive care, a family practitioner, an oral maxilofacial specialist. 03/21 13:33 Order name: CBC with Diff; Complete Time: 17: [facility] 03/21 13:33 Order name: Comprehensive Metabolic Panel; Complete Time: 17: [facility] 03/21 14:51 Order name: CBC Smear Scan; Complete Time: 17:07 EDMS 03/21 13:33 Order name: CT Facial Bones W/O Con; Complete Time: 17:07 [facility] 03/21 15:01 Order name: Labs - recollect needed: recollect labs/ hemolyzed; Complete Time: 16:00 eb Administered Medications: 14:59 Drug: NS 0.9% IV 1000 ml IV at 1000 ml once; to be given as a bolus over 60 minutes ap3 Route: IV; Rate: 1000 ml; Site: right hand; 14:59 Drug: Rocephin IV 1 grams IV at per protocol once; Given slow IV push per pharmacy ap3 instructions Route: IV; Rate: per protocol; Site: right hand; 15:23 Follow up: IV Status: Completed infusion ap3 14:59 Drug: Ketorolac IVP 30 mg IVP once Route: IVP; Site: right hand; ap3 15:23 Follow up: Response: No adverse reaction ap3 14:59 Drug: Ondansetron IVP 4 mg IVP once; over 2 minutes Route: IVP; Site: right hand; ap3 15:23 Follow up: Response: No adverse reaction ap3 17:37 Not Given (Patient Refused): [id number] mg PO once ld1 17:37 Not Given (Patient Refused): [id number] mg IVPB once over 30 mins; (mix in 50 mL) ld1 17:37 Not Given (Patient Refused): mg PO once ld1 17:37 Not Given (Patient Refused): potassiumeffervescent tablet 50 meq PO once; dissolve in 4 ld1 ounces of water or juice Disposition Summary: 03/21/24 17:17 Discharge Ordered Notes: Location: Home carl Problem: new carl Symptoms: have improved carl Condition: Stable carl Diagnosis - Dental caries, unspecified carl - Dental root caries carl - Hypokalemia carl - Anemia, unspecified carl Followup: carl - With: Private Physician - When: 2 - 3 days - Reason: Recheck today's complaints, Continuance of care, Re-evaluation by your physician Followup: carl - With: Cesar Medina DDS - When: 2 - 3 days - Reason: Recheck today's complaints, Re-evaluation by your physician Discharge Instructions: - Discharge Summary Sheet carl - Anemia carl - Dental Caries, Adult carl - Dental Pain carl - Potassium Content of Foods carl - Hypertension, Adult, Bhkc-pn-Visk carl - Dental Pain, Fjys-ns-Cust carl - Diet and Dental Disease carl - Hypokalemia carl - Dental Caries, Adult, Ixgh-[id number] [facility] Forms: - Medication Reconciliation Form [facility] - Antibiotic Education carl - Prescription Opioid Use carl - Patient Portal Instructions [facility] - Leadership Thank You Letter [facility] Prescriptions: - acetaminophen-codeine 300-30 mg Oral tablet - take 2 tablets ORAL route every 6 hours prn pain; 16 tablet; Refills: 0, [facility] Product Selection Permitted - Clindamycin HCl 300 mg Oral Capsule - take 1 capsule ORAL route every 6 hours for 10 days; 40 capsule; Refills: 0, [facility] Product Selection Permitted - Ibuprofen 600 mg Oral tablet - take 1 tablet ORAL route every 6 hours As needed take with food; 20 tablet; [facility] Refills: 0, Product Selection Permitted - Norvasc 10 mg Oral Tablet - take 1 tablet ORAL route once daily; 30 tablet; Refills: 0, Product Selection carl Permitted Signatures: Dispatcher [employer] Landon Esquivel MD MD cha Peltier, Brian, RN RN Freya Jordan RN RN ap3 Joana Cantrell Lauren RN ld1
[2024-03-21 18:12] VITALS: TEMP 98; O2SAT 100
[2024-03-21 18:15] VITALS: BP 189/73
== END 2024-03-21 17:40 | disposition home or self-care (01) ==
LOC: ER 13:12
DX: K02.7 Dental root caries (principal); E87.6 Hypokalemia; D64.9 Anemia, unspecified; I11.0 Hypertensive heart disease with heart failure
CPT/HCPCS: 36415; 70486; 76377; 80053; 85025; 96365; 96375; 99285; J0696; J2405; J7030

== ENCOUNTER 2024-06-27 16:49 | Emergency (ER) | payer SELFPAY ==
[2024-06-27] MEDS ORDERED: HYDROCODONE/APAP 5/325 MG TAB ONE (17:08)
--- NOTE | 2024-06-27 17:31 | ER ---
Nurse's Notes [facility] Name: Cele Lewis Age: 53 yrs Sex: Male : 1970 Arrival Date: 06/27/2024 Time: 16:49 Bed IW1 Private MD: Diagnosis: Dental caries, unspecified Presentation: 06/27 17:06 Chief complaint: Patient states: top back teeth have been hurting since yesterday. iw Coronavirus screen: At this time, the client does not indicate any symptoms associated with coronavirus-19. Ebola Screen: No symptoms or risks identified at this time. Initial Sepsis Screen: Does the patient meet any 2 criteria? No. Patient's initial sepsis screen is negative. Does the patient have a suspected source of infection? No. Patient's initial sepsis screen is negative. Risk Assessment: Do you want to hurt yourself or someone else? Patient reports no desire to harm self or others. Onset of symptoms was June 25, 2024. 17:06 Method Of Arrival: Ambulatory iw 17:06 Acuity: RIO 4 iw Triage Assessment: 17:08 General: Appears in no apparent distress. Behavior is calm, cooperative. iw Historical: - Allergies: 17:07 No Known Allergies; iw - PMHx: 17:07 Hypertension; iw - Immunization history:: Adult Immunizations not up to date. - Infectious Disease History:: Denies. - Social history:: Smoking status: Patient denies any tobacco usage or history of. Screenin:39 [facility] ED Fall Risk Assessment (Adult) History of falling in the last 3 months, iw including since admission No falls in past 3 months (0 pts) Confusion or Disorientation No (0 pts) Intoxicated or Sedated No (0 pts) Impaired Gait No (0 pts) Mobility Assist Device Used No (0 pt) Altered Elimination No (0 pt) Score/Fall Risk Level 0 - 2 = Low Risk Oriented to surroundings, Maintained a safe environment. Abuse screen: Denies threats or abuse. Denies injuries from another. Nutritional screening: No deficits noted. Tuberculosis screening: No symptoms or risk factors identified. Assessment: 17:10 General: Appears in no apparent distress. Behavior is calm, cooperative. Pain: iw Complains of pain in upper left third molar and upper right third molar. Neuro: Level of Consciousness is awake, alert, obeys commands, Oriented to person, place, time, situation, Moves all extremities. Cardiovascular: Patient's skin is warm and dry. Respiratory: Respiratory effort is even, unlabored, Respiratory pattern is regular, symmetrical. EENT: Derm: Skin is intact, is healthy with good turgor. Musculoskeletal: Range of motion: intact in all extremities. Vital Signs: 17:08 BP 185 / 95; Pulse 88; Resp 16; Temp 98.6(O); Pulse Ox 100% on R/A; Weight 112.04 kg; iw Height 6 ft. 0 in. ; Pain 9/10; 17:08 Body Mass Index 33.50 (112.04 kg, 182.88 cm) iw 17:08 Pain Scale: Adult iw ED Course: 16:52 Patient arrived in ED. im 17:00 [facility] Artis [facility]-C [facility] iw 17:00 Rai Roman MD is Attending Physician. iw 17:07 Triage completed. iw 17:07 Arm band placed on. iw 17:39 No provider procedures requiring assistance completed. Patient did not have IV access iw during this emergency room visit. 17:42 Di Kat, RN is Primary Nurse. iw Administered Medications: 17:15 Drug: HYDROcodone-acetaminophen PO 5 mg-325 mg 2 tabs PO once Route: PO; aa5 17:16 Follow up: Response: No adverse reaction iw Medication: 17:10 VIS not applicable for this client. iw Outcome: 17:30 Discharge ordered by MD. dr5 17:40 Discharged to home ambulatory, with family, aa5 17:40 Condition: improved 17:40 Discharge instructions given to patient, Instructed on discharge instructions, follow up and referral plans. medication usage, Demonstrated understanding of instructions, follow-up care, medications, Prescriptions given X 2, 17:42 Patient left the ED. iw Signatures: Di Kat RN RN iw Nehal Acosta RN RN aa5 Annia Sullivan im Jimmie Artis FNP-C LAB HEAD-Cdr5 Corrections: (The following items were deleted from the chart) 17:09 17:08 Pulse 88bpm; Resp 16bpm; Pulse Ox 100% RA; 112.04 kg; Height 6 ft. 0 in.; BMI: iw 33.5; Pain 9/10, Adult; iw
--- NOTE | 2024-06-27 17:31 | EDPHYS ---
Physician Documentation [facility] Name: Cele Lewis Age: 53 yrs Sex: Male : 1970 Arrival Date: 06/27/2024 Time: 16:49 Bed IW1 Private MD: ED Physician Rai Roman HPI: 06/27 17:06 This 53 yrs old Black Male presents to ER via Unassigned with complaints of Toothache. dr5 17:06 The patient presents with broken tooth/teeth. Onset: The symptoms/episode dr5 began/occurred acutely. Patient reports bilateral upper tooth pain that gotten worse yesterday. Patient reports he is supposed to have dental work completed, but they do not have finances to get it completed. Patient is speaking in full sentences, handling secretions without problems, and has normal voice.. Historical: - Allergies: 17:07 No Known Allergies; iw - PMHx: 17:07 Hypertension; iw - Immunization history:: Adult Immunizations not up to date. - Infectious Disease History:: Denies. - Social history:: Smoking status: Patient denies any tobacco usage or history of. ROS: 17:06 Constitutional: as per hpi dr5 Exam: 17:06 Constitutional: This is a well developed, well nourished patient who is awake, alert, dr5 and in no acute distress. Head/Face: Normocephalic, atraumatic. Eyes: Pupils equal round and reactive to light, extra-ocular motions intact. Lids and lashes normal. Conjunctiva and sclera are non-icteric and not injected. Cornea within normal limits. Periorbital areas with no swelling, redness, or edema. Neck: Trachea midline, no thyromegaly or masses palpated, and no cervical lymphadenopathy. Supple, full range of motion without nuchal rigidity, or vertebral point tenderness. No Meningismus. Chest/axilla: Normal chest wall appearance and motion. Nontender with no deformity. No lesions are appreciated. Cardiovascular: Regular rate and rhythm with a normal S1 and S2. Normal PMI, no JVD. No pulse deficits. Respiratory: Lungs have equal breath sounds bilaterally, clear to auscultation. No rales, rhonchi or wheezes noted. No increased work of breathing, no retractions or nasal flaring. Back: No spinal tenderness. No costovertebral tenderness. Full range of motion. Skin: Warm, dry with normal turgor. Normal color with no rashes, no lesions, and no evidence of cellulitis. Neuro: Awake and alert, GCS 15, oriented to person, place, time, and situation. Cranial nerves II-XII grossly intact. Motor strength 5/5 in all extremities. Sensory grossly intact. Cerebellar exam normal. Normal gait. 17:06 ENT: Mouth: Gums: normal with healthy appearance, Tongue: is normal, abscess, that is minimal, of the upper right third molar and upper left third molar, drooling, is not appreciated, Vital Signs: 17:08 BP 185 / 95; Pulse 88; Resp 16; Temp 98.6(O); Pulse Ox 100% on R/A; Weight 112.04 kg; iw Height 6 ft. 0 in. ; Pain 9/10; 17:08 Body Mass Index 33.50 (112.04 kg, 182.88 cm) iw 17:08 Pain Scale: Adult iw MDM: 17:03 Medical Screening Exam initiated dr5 22:44 Differential diagnosis: dental caries, gingivitis, dental abscess. Data reviewed: vital dr5 signs, nurses notes. I considered the following discharge prescriptions or medication management in the emergency department Medications were administered in the Emergency Department. See MAR. Care significantly affected by the following chronic conditions: Hypertension. Care significantly affected by the following Social Determinants of Health: Poor access to healthcare and/or lack of insurance, Poor access to transportation, Problems related to employment. Counseling: I had a detailed discussion with the patient and/or guardian regarding the historical points, exam findings, and any diagnostic results supporting the discharge/admit diagnosis, the presence of at least one elevated blood pressure reading (>120/80) during this emergency department visit, the need for outpatient follow up, for definitive care, a dentist, a family practitioner, to return to the emergency department if symptoms worsen or persist or if there are any questions or concerns that arise at home. Medication response: [place]. Response to treatment: the patient's symptoms have markedly improved after treatment. ED course: Patient reports that he has trying to get in with dental office in [place]. Will prescribe pain medication as well as Augmentin to prevent developing infection. Recommended alternating Tylenol Motrin as needed for pain. All questions answered and patient will follow-up with dentist.. Administered Medications: 17:15 Drug: HYDROcodone-acetaminophen PO 5 mg-325 mg 2 tabs PO once Route: PO; aa5 17:16 Follow up: Response: No adverse reaction iw Disposition Summary: 06/27/24 17:30 Discharge Ordered Notes: Location: Home dr5 Condition: Stable dr5 Diagnosis - Dental caries, unspecified dr5 Followup: dr5 - With: Emergency Department - When: As needed - Reason: Worsening of condition Followup: dr5 - With: Private Physician - When: 1 - 2 days - Reason: Recheck today's complaints, Continuance of care, Re-evaluation by your physician Discharge Instructions: - Discharge Summary Sheet dr5 - Dental Caries, Adult dr5 - Dental Pain dr5 Forms: - Medication Reconciliation Form dr5 - Antibiotic Education dr5 - Prescription Opioid Use dr5 - Patient Portal Instructions dr5 - Leadership Thank You Letter dr5 Prescriptions: - Augmentin 875-125 mg Oral Tablet - take 1 tablet ORAL route every 12 hours for 10 days; 20 tablet; Refills: 0, dr5 Product Selection Permitted - Tramadol 50 mg Oral Tablet - take 1 tablet ORAL route every 8 hours as needed; 12 tablet; Refills: 0, dr5 Product Selection Permitted Addendum: 06/29/2024 09:04 Co-signature as Attending Physician, Rai Roman MD I reviewed the patient's care r n provided by the Advanced Practice Provider and agree with the diagnosis and treatment plan. Signatures: Di Kat RN RN iw Nieto, Roman, MD MD rn Calderon, Audri, RN RN aa5 Jimmie Artis, CHEF HEAD-C CHEF HEAD-Cdr5
[2024-06-29 20:36] VITALS: BP 185/95; TEMP 98.6; O2SAT 100
== END 2024-06-27 17:42 | disposition home or self-care (01) ==
LOC: ER 16:49
DX: K02.9 Dental caries, unspecified (principal)
CPT/HCPCS: 99283